=== PATIENT | female | born 1980 | race American Indian/Alaskan Native ===

== ENCOUNTER 2017-09-02 22:15 | Emergency (ER) | payer SELFPAY | END 2017-09-02 22:43 | disposition left against medical advice (07) | LOC: ED 22:15 | DX: R09.89 Other specified symptoms and signs involving the circulatory and respiratory systems (principal); Z53.21 Procedure and treatment not carried out due to patient leaving prior to being seen by health care provider ==

== ENCOUNTER 2018-12-02 12:35 | Inpatient (IN) | payer OTHER ==
[2018-12-02] MEDS ORDERED: NORMODYNE IV PRN (12:39)
--- NOTE | 2018-12-02 12:48 | Emergency Department Report ---
ED Neuro Deficit HPI - General Chief Complaint: Neuro Symptoms/Deficit Stated Complaint: CVA Time Seen by Provider: 12/02/18 12:39 Source: patient, EMS (verbal report received from EMS.ems notes not available at time of chart dictation), RN notes reviewed Mode of arrival: Stretcher Limitations: Physical Limitation - History of Present Illness Initial Comments: This is a 38-year-old female. The patient is not known to this provider previously. The patient is brought to the hospital by emergency medical services for questionable stroke. Patient reports last known well time approximately 11:13 AM this morning. Symptoms include speech difficulty, and left-sided weakness. The patient also describes headache. The patient has difficulty describing the qualitative nature of her headache, radiation, exacerbating or relieving factors. The patient reports that she is not . The patient has indicated no contraindications to TPA. Location: speech, left face, left arm, left leg Presenting Symptoms: Present: Weak/Paralyzed One Side, Facial Droop/Numbness, Unable to Speak Clearly History of same: No Place: home Severity: severe Quality: other Improves With: other Worsens With: other On Anticoagulants: No Context: sudden onset, other - Related Data Allergies/Adverse Reactions: Allergies Allergy/AdvReac Type Severity Reaction Status Date / Time amoxicillin Allergy Mild Unknown Verified 12/02/18 13:06 ED Review of Systems ROS: Stated complaint: CVA Other details as noted in HPI Comment: Unobtainable due to pts medical conditions Constitutional: fever Eyes: denies: eye discharge ENT: epistaxis (patient reported transient nasal bleeding, now resolved.) Cardiovascular: denies: chest pain Gastrointestinal: denies: abdominal pain, nausea, vomiting, hematemesis, hematochezia Genitourinary: denies: hematuria Musculoskeletal: denies: back pain Neurological: headache, weakness Psychiatric: anxiety ED Neuro Physical Exam - General Limitations: Physical Limitation General appearance: alert, anxious, in distress, obese Suspected Stroke: Yes - Head Head exam: Present: atraumatic, normocephalic - Eye Eye exam: Present: normal appearance, PERRL, EOMI - ENT ENT exam: Present: normal exam, normal orophraynx, mucous membranes moist, normal external ear exam - Neck Neck exam: Present: normal inspection, full ROM. Absent: tenderness, meningismus - Respiratory Respiratory exam: Present: normal lung sounds bilaterally. Absent: respiratory distress - Cardiovascular Cardiovascular Exam: Present: regular rate, normal rhythm, normal heart sounds. Absent: bradycardia, tachycardia, irregular rhythm, systolic murmur, diastolic murmur, rubs, gallop - GI/Abdominal GI/Abdominal exam: Present: soft. Absent: distended, tenderness, guarding, rebound, rigid, pulsatile mass - Extremities Exam Extremities exam: Present: normal inspection, full ROM, other (2+ pulses noted in the bilateral upper, lower extremities. Compartments soft. No long bony tenderness. The pelvis is stable.). Absent: tenderness, pedal edema, joint swelling, calf tenderness - Back Exam Back exam: Present: normal inspection, full ROM. Absent: tenderness, CVA tenderness (R), paraspinal tenderness, vertebral tenderness - Neurological Exam Neurological exam: Present: alert, motor sensory deficit (there is 4 out of 5 strength left arm, left leg. There is decreased sensation to light touch left arm, left leg.), other (there is a left-sided facial droop.). Absent: CN II-XII intact (extraocular movements are intact. The tongue is midline. There is a left-sided facial droop. ) - NIHSS Assessment Interval: Baseline 1a. Level of Consciousness: alert/keenly responsive 1b. LOC Questions: answers both correctly 1c. LOC Commands: performs tasks correctly 2. Best Gaze: normal 3. Visual: no visual loss 4. Facial Palsy: minor paralysis 5b. Motor Arm Right: no drift 5a. Motor Arm Left: drift 6a. Motor Leg Left: drift 6b. Motor Leg Right: no drift 7. Limb Ataxia: absent 8. Sensory: mild/moderate sensory loss 9. Best Language: no aphasia 10. Dysarthria: mild/moderate dysarthria 11. Extinction/Inattention: no abnormality Total Score: 5 Stroke Severity: Moderate Stroke - Psychiatric Psychiatric exam: Present: anxious - Skin Skin exam: Present: warm, dry, intact, normal color. Absent: rash ED Course Vital Signs 12/02/18 12/02/18 12/02/18 13:09 13:13 13:27 Pulse Rate Pulse Rate [ 87 77 Left Arm] Respiratory Rate Respiratory 18 18 Rate [Left Arm] Blood Pressure 176/91 176/100 [Left Arm] Blood Pressure 173/102 [Left] O2 Sat by Pulse Oximetry O2 Sat by Pulse 95 96 Oximetry [Left Arm] 12/02/18 12/02/18 12/02/18 13:32 13:35 13:42 Pulse Rate 77 Pulse Rate [ 79 81 Left Arm] Respiratory 18 Rate Respiratory 20 20 Rate [Left Arm] Blood Pressure 176/100 182/83 [Left Arm] Blood Pressure 166/84 [Left] O2 Sat by Pulse 95 Oximetry O2 Sat by Pulse 95 95 Oximetry [Left Arm] 12/02/18 12/02/18 12/02/18 13:57 14:12 14:57 Pulse Rate Pulse Rate [ 81 77 82 Left Arm] Respiratory Rate Respiratory 18 18 18 Rate [Left Arm] Blood Pressure 169/91 156/90 176/83 [Left Arm] Blood Pressure [Left] O2 Sat by Pulse Oximetry O2 Sat by Pulse 95 99 96 Oximetry [Left Arm] - Reevaluation(s) Reevaluation #1: 12/02/18 13:50 Differential diagnosis, including but not limited to: Ischemic stroke, hemorrhagic stroke, Primo's paralysis, hemiplegic migraine, conversion disorder Assessment and plan: 38-year-old female who presents within 4.5 hours symptom onset, left-sided facial droop, left arm, left leg weakness, and spaces disturbance. No contraindications to TPA. Patient does not have a history of hemiplegic or complex migraines that she is aware of. We have recommended TPA for presumed ischemic stroke. A noncontrast CT scan of the brain was negative for acute disease. Patient seen in conjunction with stroke neurology, who also has recommended and ordered TPA. Risks and benefits were discussed with the patient. She was specifically informed about the potential risk of fatal bleed, and anaphylactic/allergic reaction. The patient verbalized understanding and exhibits decision-making capacity. She was given labetalol for elevated blood pressure. Noncontrast CT scan of the brain is negative, angiogram of the head and neck has been ordered, we have requested stat interpretation and performance. We will monitor the patient's as per our standard TPA protocol. Reevaluation #2: 12/02/18 14:43 Case discussed with critical care physician, Dr. Gonzales, who agrees with placement into the intensive care unit, assuming no large vessel occlusion noted that would require transfer for endovascular intervention. Reevaluation #3: 12/02/18 15:10 CT angiogram of the neck did not demonstrate any significant large vessel occlusion. Angiogram of the head also unremarkable. Still weak on the left side, although chewing gum, talking on a telephone, and feels somewhat improved. Discussed findings with patient and family. Patient verbalizes understanding. The patient is amenable to hospitalization. The Hospital physician, Dr. Kurtz has accepted the patient to the medical service. - Lab Data Result diagrams: 12/02/18 12:47 12/02/18 12:50 Lab Results 12/02/18 12/02/18 12/02/18 Range/Units 12:47 12:50 12:50 WBC 6.4 (4.5-11.0) K/mm3 RBC 5.54 H (3.65-5.03) M/mm3 Hgb 16.3 H (10.1-14.3) gm/dl Hct 48.1 H (30.3-42.9) % MCV 87 (79-97) fl MCH 29 (28-32) pg MCHC 34 (30-34) % RDW 14.8 (13.2-15.2) % Plt Count 226 (140-440) K/mm3 Lymph % (Auto) 32.2 (13.4-35.0) % Woods % (Auto) 5.0 (0.0-7.3) % Eos % (Auto) 1.0 (0.0-4.3) % Baso % (Auto) 1.0 (0.0-1.8) % Lymph # 2.1 (1.2-5.4) K/mm3 Woods # 0.3 (0.0-0.8) K/mm3 Eos # 0.1 (0.0-0.4) K/mm3 Baso # 0.1 (0.0-0.1) K/mm3 Seg Neutrophils % 60.8 (40.0-70.0) % Seg Neutrophils # 3.9 (1.8-7.7) K/mm3 PT 12.1 L (12.2-14.9) Sec. INR 0.85 L (0.87-1.13) APTT 26.6 (24.2-36.6) Sec. Thrombin Time 15.6 (15.1-19.6) Sec. Sodium 138 (137-145) mmol/L Potassium 3.7 (3.6-5.0) mmol/L Chloride 102.3 (98-107) mmol/L Carbon Dioxide 22 (22-30) mmol/L Anion Gap 17 mmol/L BUN 7 (7-17) mg/dL Creatinine 0.7 (0.7-1.2) mg/dL Estimated GFR > 60 ml/min BUN/Creatinine Ratio 10 % Glucose 91 (65-100) mg/dL Calcium 9.3 (8.4-10.2) mg/dL Total Bilirubin 0.70 (0.1-1.2) mg/dL AST 18 (5-40) units/L ALT 27 (7-56) units/L Alkaline Phosphatase 91 (35-129) units/L Total Creatine Kinase 147 H (30-135) units/L Troponin T < 0.010 (0.00-0.029) ng/mL Total Protein 7.7 (6.3-8.2) g/dL Albumin 4.2 (3.9-5) g/dL Albumin/Globulin Ratio 1.2 % HCG, Quant (0-4) mIU/mL 12/02/18 Range/Units 12:50 WBC (4.5-11.0) K/mm3 RBC (3.65-5.03) M/mm3 Hgb (10.1-14.3) gm/dl Hct (30.3-42.9) % MCV (79-97) fl MCH (28-32) pg MCHC (30-34) % RDW (13.2-15.2) % Plt Count (140-440) K/mm3 Lymph % (Auto) (13.4-35.0) % Woods % (Auto) (0.0-7.3) % Eos % (Auto) (0.0-4.3) % Baso % (Auto) (0.0-1.8) % Lymph # (1.2-5.4) K/mm3 Woods # (0.0-0.8) K/mm3 Eos # (0.0-0.4) K/mm3 Baso # (0.0-0.1) K/mm3 Seg Neutrophils % (40.0-70.0) % Seg Neutrophils # (1.8-7.7) K/mm3 PT (12.2-14.9) Sec. INR (0.87-1.13) APTT (24.2-36.6) Sec. Thrombin Time (15.1-19.6) Sec. Sodium (137-145) mmol/L Potassium (3.6-5.0) mmol/L Chloride (98-107) mmol/L Carbon Dioxide (22-30) mmol/L Anion Gap mmol/L BUN (7-17) mg/dL Creatinine (0.7-1.2) mg/dL Estimated GFR ml/min BUN/Creatinine Ratio % Glucose (65-100) mg/dL Calcium (8.4-10.2) mg/dL Total Bilirubin (0.1-1.2) mg/dL AST (5-40) units/L ALT (7-56) units/L Alkaline Phosphatase (35-129) units/L Total Creatine Kinase (30-135) units/L Troponin T (0.00-0.029) ng/mL Total Protein (6.3-8.2) g/dL Albumin (3.9-5) g/dL Albumin/Globulin Ratio % HCG, Quant < 2 (0-4) mIU/mL Vital Signs 12/02/18 12/02/18 12/02/18 13:09 13:13 13:27 Pulse Rate Pulse Rate [ 87 77 Left Arm] Respiratory Rate Respiratory 18 18 Rate [Left Arm] Blood Pressure 176/91 176/100 [Left Arm] Blood Pressure 173/102 [Left] O2 Sat by Pulse Oximetry O2 Sat by Pulse 95 96 Oximetry [Left Arm] 12/02/18 12/02/18 12/02/18 13:32 13:35 13:42 Pulse Rate 77 Pulse Rate [ 79 81 Left Arm] Respiratory 18 Rate Respiratory 20 20 Rate [Left Arm] Blood Pressure 176/100 182/83 [Left Arm] Blood Pressure 166/84 [Left] O2 Sat by Pulse 95 Oximetry O2 Sat by Pulse 95 95 Oximetry [Left Arm] - EKG Data -: EKG Interpreted by Al EKG shows normal: sinus rhythm Rate: normal 12/02/18 13:52 EKG shows sinus rhythm, normal axis, normal intervals, left ventricular hypertrophy, there is artifact, this is an abnormal EKG, this is not consistent with ST elevation myocardial infarction. - Radiology Data Radiology results: pending, report reviewed, image reviewed Referring Physician: DMITRY JALLOH Patient Name: RAMEZ AGUILERA Date of : 1980 Sex: Female Report Date: 2018-12-02 Report Status: Finalized Findings [facility] [address] [place] [address] Cat Scan Report Signed Patient: RAMEZ AGUILERA MR#: [id number] : 1980 Acct:[id number] Age/Sex: 38 / F ADM Date: 12/02/18 Loc: ED Attending Dr: Ordering Physician: DMITRY JALLOH MD Date of Service: 12/02/18 Procedure(s): CT head/brain wo con Accession Number(s): [id number] cc: DMITRY JALLOH MD CT scan of head without IV contrast: Compared to 11/15/14. History: Stroke. Findings: Ventricles are normal in size and midline in location. No evidence of acute ischemia or hemorrhage. There is extra-axial mass identified at the right frontal region. No significant interval change compared to previous study of MRI dated 11/15/14. Normal brainstem and cerebellum. Impression: No acute intracranial abnormality. Dr. Mcintosh was informed of the findings at 12:58 PM on 12/02/18. 98N the Transcribed By: PTP Dictated By: RHETT STYLES MD Electronically Authenticated By: RHETT STYLES MD Signed Date/Time: 12/02/18 1240 DD/ 1229 TD/TT: 12/02/18 1240 - Thrombolytic Inclusion/Exclusion Thrombolytic Inclusion Criteria: Ischemic Stroke Onset< 3h, NIH Stroke Scale D eficit, Negative CT Scan for ICH, Age 18 or Older, Glucose of 50-400mg/dl Critical Care Time: Yes Critical care time in (mins) excluding proc time.: 60 Critical care attestation.: If time is entered above; I have spent that time in minutes in the direct care of this critically ill patient, excluding procedure time. ED Disposition Clinical Impression: Acute ischemic stroke Disposition: OP ADMIT IP TO THIS HOSP Is pt being admited?: Yes Condition: Critical Referrals: [facility] [Other] - 3-5 Days
--- NOTE | 2018-12-02 12:53 | Consultation ---
History of Present Illness Consult date: 12/02/18 History of present illness: [facility] Date of Service: 12/02/18 Impression: Left sided weakness and difficulty with speech: concern for R MCA terriroty infarct. Symptoms is consistent with LVO therefore a STAT CTA head and neck were ordered. Differential Diagnosis: 1. Cardioembolic stroke 2. Small vessel disease/lacune 3. Thromboembolic, [id number] mechanism 4. Hypercoagulable state-related infarct 5. Transient ischemic attack 6. Thrombotic mechanism, large artery disease Comments: LKN: 11:00 Door time: 12:35 [facility] contacted: 12:42 [facility] at bedside: 12:45 NIHSS assessment time: 12:50 BP prior to bolus: 173/102 Verbal tpa order: 13:05 Needle time: 13:12 Verbal Consent to tPA: I have explained to the patient the nature of the patients condition, the use of tPA fibrinolytic agent, and the benefits to be reasonably expected compared with alternative approaches. I have discussed the likelihood of major risks or complications of this procedure including (if applicable) but not limited to loss of limb function, brain damage, paralysis, hemorrhage, infection, complications from transfusion of blood components, drug reactions, blood clots and loss of life. I have also indicated that with any procedure there is always the possibility of an unexpected complication. I have explained the risks which include: 1. , Stroke or permanent neurologic injury (paralysis, coma, etc) 2. Worsening of stroke symptoms from swelling or bleeding in the brain 3. Bleeding in other parts of the body 4. Need for blood transfusions to replace blood or clotting factors 5. Allergic reaction to medications 6. Other unexpected complications All questions were answered and the patient/family/guardian express understanding of the treatment plan and consent to the procedure. Our recommendations are outlined below. We will be seeing the patient back in follow up as noted. Recommendations: IV tPA dose = 9mg bolus and 81mg infusion Routine post tPA monitoring including neuro checks and blood pressure control during/after treatment Monitor blood pressure Check blood pressure and NIHSS every 15 min for 2 h, then every 30 min for 6 h, and finally every hour for 16 h Systolic greater than 180 OR diastolic greater than 105: Option 1: Labetalol 10 mg IV for 1 - 2 min May repeat or double labetalol every 10 min to maximum dose of 300 mg, or give initial labetalol dose, then start labetalol drip at 2 - 8 mg/min. Option 2: Nicardipine 5 mg/h IV infusion as initial dose and titrate to desired effect by increasing 2.5 mg/h every 5 min to maximum of 15 mg/h; If blood pressure is not controlled by labetolol or nicardipine, consider sodium nitroprusside. Admission to ICU FU STAT CTA CT brain 24 hours post tPA NPO until swallowing screen performed and passed No antiplatelet agents or anticoagulants (including heparin for DVT prophylaxis) in first 24 hours No Easley catheter, nasogastric tube, arterial catheter or central venous catheter for 24 hr, unless absolutely necessary Telemetry Inpatient Neurology Consultation Stroke evaluation as per inpatient neurology recommendations Discussed with ED MD Vee Grover, DO [facility] left sided weakness and speech changes History of Present Illness 38 yo F who is presenting with sudden onset of headache with left sided weakness and speech changes at 11:00. Patient states that she woke up fine this morning and then she developed these symptoms and they are not improving. She has not had anything like this happen to her before. She does get headaches some times but not anything like this. Diagnostics CT head: no acute process Exam NIHSS score: 5 Medical Decision Making: - Extensive number of diagnosis or management options are considered above. - Extensive amount of complex data reviewed. - High risk of complication and/or morbidity or mortality are associated with differential diagnostic considerations above. - There may be Uncertain outcome and increased probability of prolonged functional impairment or high probability of severe prolonged functional impairment associated with some of these differential diagnosis. Medical Data Reviewed: 1.Data reviewed include clinical labs, radiology, Medical Tests; 2.Tests results discussed w/performing or interpreting physician; 3.Obtaining/reviewing old medical records; 4.Obtaining case history from another source; 5.Independent review of image, tracing or specimen. Patient was informed the Neurology Consult would happen via telehealth (remote video) and consented to receiving care in this manner. Medications and Allergies Allergies Allergy/AdvReac Type Severity Reaction Status Date / Time amoxicillin Allergy Mild Unknown Verified 12/02/18 13:06 Active Meds: Active Medications Labetalol HCl (Normodyne) 10 mg IV Q5MIN PRN PRN Reason: to maintain SBP < 180 - Assessment Assessment Interval: Baseline - Level of Consciousness 1a. Level of Consciousness: alert/keenly responsive - LOC Questions 1b. LOC Questions: answers both correctly - LOC Command 1c. LOC Commands: performs tasks correctly - Best Gaze 2. Best Gaze: normal - Visual 3. Visual: no visual loss - Facial Palsy 4. Facial Palsy: minor paralysis - Motor Arm 5a. Motor Arm Left: drift 5b. Motor Arm Right: no drift - Motor Leg 6a. Motor Leg Left: drift 6b. Motor Leg Right: no drift - Limb Ataxia 7. Limb Ataxia: absent - Sensory 8. Sensory: mild/moderate sensory loss - Best Language 9. Best Language: mild/moderate aphasia - Dysarthria 10. Dysarthria: normal - Extinction and Inattention 11. Extinction/Inattention: no abnormality - Scoring Total Score: 5 Stroke Severity: Moderate Stroke Results - Laboratory Findings CBC and BMP: 12/02/18 12:47
--- NOTE | 2018-12-02 13:01 | Cat Scan Report ---
CT scan of head without IV contrast: Compared to 11/15/14. History: Stroke. Findings: Ventricles are normal in size and midline in location. No evidence of acute ischemia or hemorrhage. There is extra-axial mass identified at the right frontal region. No significant interval change compared to previous study of MRI dated 11/15/14. Normal brainstem and cerebellum. Impression: No acute intracranial abnormality. Dr. Mcintosh was informed of the findings at 12:58 PM on 12/02/18. 98N the
[2018-12-02 13:06] LABS: Basophils # (Auto) 0.1 K/mm3 (0.0-0.1); Eosinophils # (Auto) 0.1 K/mm3 (0.0-0.4); Hematocrit 48.1 % (30.3-42.9); Hemoglobin 16.3 gm/dl (10.1-14.3); Lymphocytes # (Auto) 2.1 K/mm3 (1.2-5.4); Lymphocytes % (Auto) 32.2 % (13.4-35.0); Mean Corpuscular HGB Conc 34 % (30-34); Mean Corpuscular Volume 87 fl (79-97); Monocytes # (Auto) 0.3 K/mm3 (0.0-0.8); Platelet Count 226 K/mm3 (140-440); Red Blood Count 5.54 M/mm3 (3.65-5.03); Red Cell Distribution Width 14.8 % (13.2-15.2)
[2018-12-02] MEDS ORDERED: ACTIVASE IV ONE ×2 (13:06)
[2018-12-02] MEDS ORDERED: ACTIVASE ONE (13:06)
[2018-12-02 13:16] LABS: INR 0.85 (0.87-1.13)
[2018-12-02 13:17] LABS: Partial Thromboplastin Time 26.6 Sec. (24.2-36.6); Thrombin Time 15.6 Sec. (15.1-19.6)
[2018-12-02 13:30] LABS: Alanine Aminotransferase 27 units/L (7-56); Albumin 4.2 g/dL (3.9-5); BUN/Creatinine Ratio 10; Blood Urea Nitrogen 7 mg/dL (7-17); Calcium 9.3 mg/dL (8.4-10.2); Hemolysis Index 29
[2018-12-02] MEDS ORDERED: NACL 0.9% IV ONE (14:00)
--- NOTE | 2018-12-02 14:52 | Cat Scan Report ---
PROCEDURE: CT ANGIO HEAD TECHNIQUE: CT angiography of the head performed. 100 cc Omnipaque 350 IV contrast administered. Axia l images and coronal and sagittal reformatted images were obtained. MIP fan reformatted images also o btained. HISTORY: stroke sx COMPARISON: None FINDINGS: The anterior and posterior cerebral circulations are maintained. No intravascular filling defects see n. There is no cerebral aneurysm seen. There is a retention cyst in the right maxillary sinus. IMPRESSION: There is no significant abnormality identified. This document is electronically signed by Betina Esparza MD., Dec 02 2018 02:50:46 PM ET
--- NOTE | 2018-12-02 14:56 | Cat Scan Report ---
PROCEDURE: CT ANGIO NECK TECHNIQUE: CT angiography of the neck performed. IV contrast administered. Axial images and coronal and sagittal reformatted images. MIP and reformatted images obtained. HISTORY: stroke sx COMPARISON: None FINDINGS: Carotid arteries are patent without evidence for carotid stenosis or dissection. Vertebral arteries are patent without evidence for stenosis or dissection. IMPRESSION: There is no significant abnormality identified. This document is electronically signed by Betina Esparza MD., Dec 02 2018 02:54:07 PM ET
[2018-12-02] MEDS ORDERED: REGLAN ONE (15:25)
[2018-12-02] MEDS ORDERED: REGLAN IV ONE (15:29)
--- NOTE | 2018-12-02 18:20 | History and Physical Report ---
History of Present Illness Chief complaint: Im weak History of present illness: 38 YO Female with Obesity presents to ED for evaluation. Pt was in her usual state of health until she experienced acute onset of slurred speech , facial drooping, and Left sided weakness which began at 11:13 hrs. EMS was notified, and upon arrival the patient was found to have a neurologic deficit. A code stroke was called and the patient was transported to [facility]. Pt seen and evaluated in ED and found to have symptoms of CVA and was treated with TPA with improvement in symptoms. Pt admitted to ICU. Teleneurology consulted in ED and patient was deemed to be a candidate for TPA. Neurology consulted in ED and patient was initiated on CVA protocol. No reports of fever, chills, CP, Palpitations, NVD, Syncope, or recent ill contacts. Past History Past Medical History: other (Obesity) Past Surgical History: No surgical history, Other (reviewed) Social history: single. denies: smoking, alcohol abuse, prescription drug abuse Family history: hypertension Medications and Allergies Allergies Allergy/AdvReac Type Severity Reaction Status Date / Time amoxicillin Allergy Mild Unknown Verified 12/02/18 13:06 Home Medications Medication Instructions Recorded Confirmed Last Taken Type Albuterol Sulfate [Albuterol 0.63% 0.63 mg IH DAILY 12/02/18 12/02/18 Unknown History NEBS] Ibuprofen [Motrin] 600 mg PO DAILY PRN 12/02/18 12/02/18 12/01/18 History Active Meds: Active Medications Labetalol HCl (Normodyne) 10 mg IV Q5MIN PRN PRN Reason: to maintain SBP < 180 Review of Systems Constitutional: no weight loss, no weight gain, no fever, no chills Ears, nose, mouth and throat: no ear pain, no ear discharge, no tinnitis, no dec reased hearing, no nasal congestion Breasts: no change in shape, no swelling Cardiovascular: no chest pain, no orthopnea, no palpitations, no rapid/irregular heart beat Respiratory: no cough, no cough with sputum, no shortness of breath Gastrointestinal: no abdominal pain, no nausea, no vomiting, no diarrhea, no change in bowel habits, no hematemesis Genitourinary Female: no pelvic pain, no flank pain, no menorrhagia, no dysuria, no urinary frequency, no urgency Rectal: no pain, no incontinence, no bleeding Musculoskeletal: no neck stiffness, no neck pain, no shooting arm pain, no arm numbness/tingling, no shooting leg pain, no leg numbness/tingling Integumentary: no rash, no pruritis, no redness, no sores, no wounds, no jaundice Neurological: weakness, numbness, change in speech, gait dysfunction, motor disturbance, no head injury, no seizures, no syncope, no tremors Psychiatric: no anxiety, no memory loss, no change in sleep habits, no sleep disturbances, no insomnia, no hypersomnia, no change in appetite Endocrine: no cold intolerance, no heat intolerance, no polyphagia, no excessive thirst, no polydipsia, no polyuria Hematologic/Lymphatic: no easy bruising, no easy bleeding, no lymphadenopathy, no lymphedema Allergic/Immunologic: no urticaria, no allergic rhinitis, no wheezing, no persistent infections, no anaphylaxis Exam - Constitutional Vitals: Temp Pulse Resp BP Pulse Ox 75 18 145/80 98 12/02/18 16:57 12/02/18 17:00 12/02/18 16:57 12/02/18 17:00 General appearance: Present: mild distress - EENT Eyes: Present: PERRL ENT: hearing intact, clear oral mucosa - Neck Neck: Present: supple, normal ROM - Respiratory Respiratory effort: normal Respiratory: bilateral: CTA - Cardiovascular Heart Sounds: Present: S1 & S2. Absent: rub, click - Extremities Extremities: pulses symmetrical, No edema Peripheral Pulses: within normal limits - Abdominal General gastrointestinal: Present: soft, non-tender, non-distended, normal bowel sounds Female genitourinary: Present: normal - Integumentary Integumentary: Present: clear, warm, dry - Musculoskeletal Musculoskeletal: left sided weakness - Psychiatric Psychiatric: appropriate mood/affect, intact judgment & insight - Neurologic Neurologic: CNII-XII intact, focal deficits, no moves all extremities, no gait normal Results - Labs CBC & Chem 7: 12/02/18 12:47 12/02/18 12:50 Labs: Abnormal lab results 12/02/18 12/02/18 12/02/18 Range/Units 12:47 12:50 12:50 RBC 5.54 H (3.65-5.03) M/mm3 Hgb 16.3 H (10.1-14.3) gm/dl Hct 48.1 H (30.3-42.9) % PT 12.1 L (12.2-14.9) Sec. INR 0.85 L (0.87-1.13) Total Creatine Kinase 147 H (30-135) units/L Assessment and Plan - Patient Problems (1) CVA (cerebral vascular accident) Current Visit: Yes Status: Acute Qualifiers: Precerebral and cerebral artery: middle cerebral artery Laterality of affected vessel: left Plan to address problem: Admit to ICU, TPA Administered in ED, Stroke Protocol: CT head, MRI Brain, MRA Brain, Echo, Carotid doppler, Antiplatelet therapy, lipid panel, statin therapy, PT/OT/speech therapy, Swallow evaluation in ED, Teleneurology consulted in ED, Neurology consulted in ED. (2) Obesity hypoventilation syndrome Current Visit: Yes Status: Acute Plan to address problem: Balanced diet, increased physical activity at discharge, NIPPV as clinically indicated. supplemental oxygen, nebulizer therpay, pulse oximetry (3) DVT prophylaxis Current Visit: Yes Status: Acute Plan to address problem: SCD to BLE while in bed, hold anticoagulation for 24 hours S/P TPA.
[2018-12-02] MEDS ORDERED: MILK OF MAGNESIA PO PRN (18:21)
[2018-12-02] MEDS ORDERED: DULCOLAX PR PRN (18:21)
[2018-12-02] MEDS ORDERED: SODIUM CHLORIDE FLUSH SYRINGE 10 ML IV PRN (18:21)
[2018-12-02] MEDS ORDERED: ZOFRAN IV PRN (18:21)
[2018-12-02] MEDS ORDERED: REGLAN PO PRN (18:21)
[2018-12-02] MEDS ORDERED: PHENERGAN PR PRN (18:21)
[2018-12-02] MEDS ORDERED: PROVENTIL IH PRN (18:21)
[2018-12-02] MEDS ORDERED: SODIUM CHLORIDE FLUSH SYRINGE 10 ML INJ PRN (18:34)
[2018-12-02] MEDS ORDERED: NORMODYNE IV ONE (20:22)
[2018-12-02] MEDS ORDERED: TYLENOL ONE (21:25)
[2018-12-02] MEDS ORDERED: TYLENOL PR ONE ×2 (21:28)
--- NOTE | 2018-12-03 03:27 | Cat Scan Report ---
PROCEDURE: CT HEAD/BRAIN WO CON TECHNIQUE: Computerized tomography of the head was performed without contrast material. CT DOSE LENGTH PRODUCT: 969.2 mGycm HISTORY: headache after TPA COMPARISONS: December 02, 2018 . FINDINGS: Skull and scalp: Normal . Paranasal sinuses: Normal . Ventricles and subarachnoid spaces: Normal . Cerebrum: No evidence of hemorrhage, acute infarction or mass . Cerebellum and brainstem: No evidence of hemorrhage, acute infarction or mass . Vasculature: Normal . IMPRESSION: Normal Examination . This document is electronically signed by Rian Syed MD., Dec 03 2018 03:24:56 AM ET
[2018-12-03 05:45] LABS: Chol/HDL Ratio 4.47 %
--- NOTE | 2018-12-03 08:31 | Progress Note ---
Assessment and Plan Assessment and plan: Patient is 38 yo woman without a history of chronic medical problems who presented to [facility] ED on 12/02/18 with acute onset of slurred speech, facial drooping, and Left sided weakness which began at 11:13 hrs. NIHSS was 5. She was treated with tPA. CVA (cerebral vascular accident) Current Visit: Yes Status: Acute Qualifiers: Precerebral and cerebral artery: middle cerebral artery Laterality of affected vessel: left Plan to address problem: Admit to ICU, TPA Administered in ED, Stroke Protocol: CT head, MRI Brain, MRA Brain, Echo, Carotid doppler, Antiplatelet therapy, lipid panel, statin therapy, PT/OT/speech therapy, Swallow evaluation in ED, Teleneurology consulted in ED, Neurology consulted in ED. Obesity bmi 35.5 Current Visit: Yes Status: Acute Plan to address problem: Balanced diet, increased physical activity at discharge, NIPPV as clinically indicated. supplemental oxygen, nebulizer therpay, pulse oximetry -Dyslipidemia: treat with statin -DVT prophylaxis Current Visit: Yes Status: Acute Plan to address problem: SCD to BLE while in bed, hold anticoagulation for 24 hours S/P TPA. MRI brain pending History Interval history: Follow up CVA. She has expressive aphasia, but talking, she has left hemiparesis but able to move slightly. No headaches, no n/v/sob/cp Hospitalist Physical - Physical exam Narrative exam: - General Limitations: Physical Limitation General appearance: alert, anxious, in distress, obese Suspected Stroke: Yes - Head Head exam: Present: atraumatic, normocephalic - Eye Eye exam: Present: normal appearance, PERRL, EOMI - ENT ENT exam: Present: normal exam, normal orophraynx, mucous membranes moist, normal external ear exam - Neck Neck exam: Present: normal inspection, full ROM. Absent: tenderness, meningismus - Respiratory Respiratory exam: Present: normal lung sounds bilaterally. Absent: respiratory distress - Cardiovascular Cardiovascular Exam: Present: regular rate, normal rhythm, normal heart sounds. Absent: bradycardia, tachycardia, irregular rhythm, systolic murmur, diastolic murmur, rubs, gallop - GI/Abdominal GI/Abdominal exam: Present: soft. Absent: distended, tenderness, guarding, rebound, rigid, pulsatile mass - Extremities Exam Extremities exam: Present: normal inspection, full ROM, other (2+ pulses noted in the bilateral upper, lower extremities. Compartments soft. No long bony tenderness. The pelvis is stable.). Absent: tenderness, pedal edema, joint swelling, calf tenderness - Back Exam Back exam: Present: normal inspection, full ROM. Absent: tenderness, CVA tenderness (R), paraspinal tenderness, vertebral tenderness - Neurological Exam Neurological exam: Present: alert, motor sensory deficit (there is 4 out of 5 strength left arm, left leg. There is decreased sensation to light touch left arm, left leg.), other (there is a left-sided facial droop.). Absent: CN II-XII intact (extraocular movements are intact. The tongue is midline. There is a left-sided facial droop. ) - Constitutional Vitals: Temp Pulse Resp BP Pulse Ox 72 21 160/99 98 12/03/18 07:00 12/03/18 07:00 12/03/18 07:00 12/03/18 07:00 General appearance: Present: mild distress Results - Labs CBC & Chem 7: 12/02/18 12:47 12/02/18 12:50 Labs: Laboratory Last Values WBC 6.4 K/mm3 (4.5-11.0) 12/02/18 12:47 RBC 5.54 M/mm3 (3.65-5.03) H 12/02/18 12:47 Hgb 16.3 gm/dl (10.1-14.3) H 12/02/18 12:47 Hct 48.1 % (30.3-42.9) H 12/02/18 12:47 MCV 87 fl (79-97) 12/02/18 12:47 MCH 29 pg (28-32) 12/02/18 12:47 MCHC 34 % (30-34) 12/02/18 12:47 RDW 14.8 % (13.2-15.2) 12/02/18 12:47 Plt Count 226 K/mm3 (140-440) 12/02/18 12:47 Lymph % (Auto) 32.2 % (13.4-35.0) 12/02/18 12:47 [place] % (Auto) 5.0 % (0.0-7.3) 12/02/18 12:47 Eos % (Auto) 1.0 % (0.0-4.3) 12/02/18 12:47 Baso % (Auto) 1.0 % (0.0-1.8) 12/02/18 12:47 Lymph # 2.1 K/mm3 (1.2-5.4) 12/02/18 12:47 [place] # 0.3 K/mm3 (0.0-0.8) 12/02/18 12:47 Eos # 0.1 K/mm3 (0.0-0.4) 12/02/18 12:47 Baso # 0.1 K/mm3 (0.0-0.1) 12/02/18 12:47 Seg Neutrophils % 60.8 % (40.0-70.0) 12/02/18 12:47 Seg Neutrophils # 3.9 K/mm3 (1.8-7.7) 12/02/18 12:47 PT 12.1 Sec. (12.2-14.9) L 12/02/18 12:50 INR 0.85 (0.87-1.13) L 12/02/18 12:50 APTT 26.6 Sec. (24.2-36.6) 12/02/18 12:50 Thrombin Time 15.6 Sec. (15.1-19.6) 12/02/18 12:50 Sodium 138 mmol/L (137-145) 12/02/18 12:50 Potassium 3.7 mmol/L (3.6-5.0) 12/02/18 12:50 Chloride 102.3 mmol/L (98-107) 12/02/18 12:50 Carbon Dioxide 22 mmol/L (22-30) 12/02/18 12:50 Anion Gap 17 mmol/L 12/02/18 12:50 BUN 7 mg/dL (7-17) 12/02/18 12:50 Creatinine 0.7 mg/dL (0.7-1.2) 12/02/18 12:50 Estimated GFR > 60 ml/min 12/02/18 12:50 BUN/Creatinine Ratio 10 % 12/02/18 12:50 Glucose 91 mg/dL (65-100) 12/02/18 12:50 POC Glucose 82 (70-105) 12/02/18 13:45 Calcium 9.3 mg/dL (8.4-10.2) 12/02/18 12:50 Total Bilirubin 0.70 mg/dL (0.1-1.2) 12/02/18 12:50 AST 18 units/L (5-40) 12/02/18 12:50 ALT 27 units/L (7-56) 12/02/18 12:50 Alkaline Phosphatase 91 units/L (35-129) 12/02/18 12:50 Total Creatine Kinase 147 units/L (30-135) H 12/02/18 12:50 Troponin T < 0.010 ng/mL (0.00-0.029) 12/02/18 12:50 Total Protein 7.7 g/dL (6.3-8.2) 12/02/18 12:50 Albumin 4.2 g/dL (3.9-5) 12/02/18 12:50 Albumin/Globulin Ratio 1.2 % 12/02/18 12:50 Triglycerides 96 mg/dL (2-149) 12/03/18 05:07 Cholesterol 161 mg/dL (50-199) 12/03/18 05:07 LDL Cholesterol Direct 114 mg/dL (50-130) 12/03/18 05:07 HDL Cholesterol 36 mg/dL (40-59) L 12/03/18 05:07 Cholesterol/HDL Ratio 4.47 % 12/03/18 05:07 HCG, Quant < 2 mIU/mL (0-4) 12/02/18 12:50 Active Medications - Current Medications Current Medications: Generic Name Dose Route Start Last Admin Trade Name Freq PRN Reason Stop Dose Admin Acetaminophen 650 mg 12/02/18 18:21 Tylenol PO Q4H PRN Pain, Mild (1-3) Albuterol 2.5 mg 12/02/18 18:21 Proventil IH Q3HRT PRN Shortness Of Breath Aspirin 325 mg 12/03/18 10:00 Aspirin PO QDAY [facility] Atorvastatin Calcium 40 mg 12/02/18 22:00 12/02/18 22:00 Lipitor PO Not Given QHS LINUS Bisacodyl 10 mg 12/02/18 18:21 Dulcolax CA QDAY PRN Constipation Labetalol HCl 10 mg 12/02/18 12:39 Normodyne IV Q5MIN PRN to maintain SBP < 180 Magnesium Hydroxide 30 ml 12/02/18 18:21 Milk Of Magnesia PO Q4H PRN Constipation Metoclopramide HCl 10 mg 12/02/18 18:21 Reglan PO Q6H PRN Nausea And Vomiting Ondansetron HCl 4 mg 12/02/18 18:21 Zofran IV Q8H PRN Nausea And Vomiting Promethazine HCl 25 mg 12/02/18 18:21 Phenergan CA Q6H PRN Nausea And Vomiting Sodium Chloride 10 ml 12/02/18 18:21 Sodium Chloride Flush Syringe 10 Ml IV PRN PRN LINE FLUSH
[2018-12-03] MEDS ORDERED: TYLENOL ONE (10:07)
[2018-12-03] MEDS: TYLENOL PO PRN ×2 (10:31→21:05)
[2018-12-03] MEDS ORDERED: ASPIRIN ONE (10:38)
[2018-12-03] MEDS: ASPIRIN PO SCH (10:59)
--- NOTE | 2018-12-03 11:07 | Vascular Lab Report ---
PROCEDURE: VL CAROTID DUPLEX BILAT TECHNIQUE: Carotid ultrasound. Degree of carotid stenosis calculated by indirect methods via the peak systolic velocities of the ICA and CCA and reference with the society of Radiologist and Ultrasound consensus conference radiology 2003. HISTORY: stroke COMPARISONS: None currently available. FINDINGS: Note: Measurement of carotid stenosis is based on flow velocity values that correlate with the [place] Symptomatic Carotid Endarterectomy Trial (NASCET) based stenosis criteria using the internal carotid artery diameter as the denominator for stenosis calculation. RIGHT CCA, ICA, and ECA (cm/s): 106, 109, and 107. Ratio = 1.02. LEFT CCA, ICA, and ECA (cm/s): 143, 109, 138. Ratio = 0.76. Both vertebral arteries demonstrate antegrade flow. Normal spectral rhythm is identified. IMPRESSION: * No hemodynamically significant (>50%) stenosis noted based on the ratios, velocities, and color Do ppler images. This document is electronically signed by Henrry Peng MD., Dec 03 2018 11:05:26 AM ET
--- NOTE | 2018-12-03 14:39 | Consultation ---
History of Present Illness Consult date: 12/03/18 Requesting physician: DMITRY JALLOH Reason for consult: other (Acute CVA) History of present illness: PULMONARY/CCM CONSULT NOTE (Full dictation # [id number]) Please see dictated notes for full details Past History Past Medical History: other (Obesity) Past Surgical History: No surgical history, Other (reviewed) Social history: single. denies: smoking, alcohol abuse, prescription drug abuse Family history: hypertension Medications and Allergies Allergies Allergy/AdvReac Type Severity Reaction Status Date / Time amoxicillin Allergy Mild Unknown Verified 12/02/18 13:06 Home Medications Medication Instructions Recorded Confirmed Last Taken Type Albuterol Sulfate [Albuterol 0.63% 0.63 mg IH DAILY 12/02/18 12/02/18 Unknown History NEBS] Ibuprofen [Motrin] 600 mg PO DAILY PRN 12/02/18 12/02/18 12/01/18 History Ibuprofen 400 mg PO TID PRN #20 tablet 12/08/18 Unknown Rx Active Meds: Active Medications Acetaminophen (Tylenol) 650 mg PO Q4H PRN PRN Reason: Pain, Mild (1-3) Last Admin: 12/03/18 10:31 Dose: 650 mg Documented by: Albuterol (Proventil) 2.5 mg IH Q3HRT PRN PRN Reason: Shortness Of Breath Aspirin (Aspirin) 325 mg PO QDAY [facility] Last Admin: 12/03/18 10:59 Dose: 325 mg Documented by: Atorvastatin Calcium (Lipitor) 40 mg PO QHS [facility] Last Admin: 12/02/18 22:00 Dose: Not Given Documented by: Bisacodyl (Dulcolax) 10 mg MS QDAY PRN PRN Reason: Constipation Labetalol HCl (Normodyne) 10 mg IV Q5MIN PRN PRN Reason: to maintain SBP < 180 Magnesium Hydroxide (Milk Of Magnesia) 30 ml PO Q4H PRN PRN Reason: Constipation Metoclopramide HCl (Reglan) 10 mg PO Q6H PRN PRN Reason: Nausea And Vomiting Ondansetron HCl (Zofran) 4 mg IV Q8H PRN PRN Reason: Nausea And Vomiting Promethazine HCl (Phenergan) 25 mg MS Q6H PRN PRN Reason: Nausea And Vomiting Sodium Chloride (Sodium Chloride Flush Syringe 10 Ml) 10 ml IV PRN PRN PRN Reason: LINE FLUSH Physical Examination Vital signs: Vital Signs BP 173/102 12/02/18 13:09 Results - Laboratory Findings CBC and BMP: 12/02/18 12:47 12/02/18 12:50 PT/INR, D-dimer PT 12.1 Sec. (12.2-14.9) L 12/02/18 12:50 INR 0.85 (0.87-1.13) L 12/02/18 12:50 Abnormal lab findings: Abnormal Labs 12/02/18 12/02/18 12/02/18 12:47 12:50 12:50 RBC 5.54 H Hgb 16.3 H Hct 48.1 H PT 12.1 L INR 0.85 L Total Creatine Kinase 147 H HDL Cholesterol 12/03/18 05:07 RBC Hgb Hct PT INR Total Creatine Kinase HDL Cholesterol 36 L
--- NOTE | 2018-12-03 18:15 | Progress Note ---
Assessment and Plan This is a 38 YO F with left sided weakness, s/p Alteplase. Examination is suspicious for non physiologic deficits. Recommend: Aspirin daily, pt with negative ct head x 2 MRI normal. MRA normal Statin, Pt/OT/ST, VTE prophylaxis echo and cta neck with out pathology Continue care for all medical issues as you are doing IF pt does not improve will likely need rehab. Subjective Date of service: 12/03/18 Interval history: Pt with no additional complaints. Initially seen by the teleneurologist service. Speech is back to normal but stil having trouble with the left side. Objective - Vital Sign Vital Signs - 12hr 12/03/18 12/03/18 12/03/18 07:00 08:00 09:00 Pulse Rate [ 72 79 77 Left Arm] Respiratory 21 18 18 Rate [Left Arm] Blood Pressure 160/99 156/95 163/90 [Left Arm] O2 Sat by Pulse 98 94 96 Oximetry [Left Arm] 12/03/18 12/03/18 12/03/18 10:00 11:00 12:08 Pulse Rate [ 77 82 78 Left Arm] Respiratory 18 18 18 Rate [Left Arm] Blood Pressure 163/90 154/93 149/84 [Left Arm] O2 Sat by Pulse 96 96 96 Oximetry [Left Arm] 12/03/18 12/03/18 12/03/18 13:00 14:00 15:00 Pulse Rate [ 86 72 72 Left Arm] Respiratory 18 18 18 Rate [Left Arm] Blood Pressure 184/82 167/104 167/104 [Left Arm] O2 Sat by Pulse 96 96 97 Oximetry [Left Arm] - EENT EENT: PERRL, mucous membranes moist - Respiratory Respiratory: lungs clear - Cardiovascular Cardiovascular: regular rate - Gastrointestinal Gastrointestinal: normoactive bowel sounds - Neurologic Cranial nerve examination: PERRL, V1/V2/V3 grossly intact, face symmetric, tongue midline Speech examination: intact Detailed motor examination: grossly full strength in Motor examination - right side: 5/5: biceps, triceps, wrist flexion, wrist extension, field handyman, hip flexors, knee extensors, dorsiflexion, toe extension (EHL), plantarflexion Motor examination - left side: 3/5: biceps, triceps, wrist flexion, wrist extension, field handyman, hip flexors, knee extensors, dorsiflexion, toe extension (EHL), plantarflexion Reflex and gait examination: normal gait Reflexes: 1+: ankle, bicep, knee, tricep - Laboratory Findings CBC and BMP: 12/02/18 12:47 12/02/18 12:50 Abnormal Lab Findings: Abnormal Labs 12/02/18 12/02/18 12/02/18 12:47 12:50 12:50 RBC 5.54 H Hgb 16.3 H Hct 48.1 H PT 12.1 L INR 0.85 L Total Creatine Kinase 147 H HDL Cholesterol 12/03/18 05:07 RBC Hgb Hct PT INR Total Creatine Kinase HDL Cholesterol 36 L - Diagnostic Findings Additional findings: CT head (-) MRI Brain no abnormality MRA head no abnormality
--- NOTE | 2018-12-03 18:16 | Magnetic Resonance Report ---
PROCEDURE: MR BRAIN WO CON TECHNIQUE: Magnetic resonance imaging of the brain was performed without contrast material. HISTORY: stroke . Headache. COMPARISONS: None . FINDINGS: There is no evidence of intracranial hemorrhage. No mass lesions or mass effect identified. Normal gr ay-white matter differentiation is seen. The ventricles are normal size and are midline. No abnormal extra-axial fluid collections or masses are seen. The corpus callosum, region of the pituitary fossa and foramen magnum appear normal. No abnormal areas of restricted diffusion are seen that would sugge st an acute ischemic event. Mastoid air cells are clear. There is an oval density seen inferiorly in the right maxillary sinus measuring 3.2 x 1.7 cm suggesti ng a mucous retention cyst. The paranasal sinuses otherwise are clear. IMPRESSION: Negative MRI of the brain. Mild paranasal sinus disease as described. . This document is electronically signed by Alexis Carter MD., Dec 03 2018 06:15:00 PM ET
--- NOTE | 2018-12-03 18:19 | Magnetic Resonance Report ---
PROCEDURE: MR MRA/MRV HEAD WO CON TECHNIQUE: Axial 3-D [id number] MR angiography of the [place] of [place] and brain was performed. The source images were reconstructed in various views using maximum intensity projection. HISTORY: stroke COMPARISONS: None . FINDINGS: Visualized vertebral arteries appear widely patent. Basilar artery is also widely patent. There is pe rsistent circulation of the left posterior cerebral artery. The posterior cerebral arteries donn aterally appear widely patent. Visualized internal carotid arteries appear widely patent. The carotid siphons, the A1 segments, the anterior cerebral arteries and the middle cerebral arteries bilaterally appear widely patent. No high -grade stenosis, occlusion visualized. No changes are seen that would suggest aneurysm or vascular ma lformation. IMPRESSION: Negative exam. Anterior and posterior circulation appear intact. No focal abnormalities are seen. This document is electronically signed by Alexis Carter MD., Dec 03 2018 06:18:02 PM ET
[2018-12-04] MEDS: BENADRYL PO PRN ×2 (05:31→22:06)
--- NOTE | 2018-12-04 07:36 | Progress Note ---
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 No nausea or vomiting. Residual weakness of the left upper extremity Objective - Exam Narrative Exam: - General Limitations: Physical Limitation General appearance: alert, anxious, in distress, obese Suspected Stroke: Yes - Head Head exam: Present: atraumatic, normocephalic - Eye Eye exam: Present: normal appearance, PERRL, EOMI - ENT ENT exam: Present: normal exam, normal orophraynx, mucous membranes moist, normal external ear exam - Neck Neck exam: Present: normal inspection, full ROM. Absent: tenderness, meningismus - Respiratory Respiratory exam: Present: normal lung sounds bilaterally. Absent: respiratory distress - Cardiovascular Cardiovascular Exam: Present: regular rate, normal rhythm, normal heart sounds. Absent: bradycardia, tachycardia, irregular rhythm, systolic murmur, diastolic murmur, rubs, gallop - GI/Abdominal GI/Abdominal exam: Present: soft. Absent: distended, tenderness, guarding, rebound, rigid, pulsatile mass - Extremities Exam Extremities exam: Present: normal inspection, full ROM, other (2+ pulses noted in the bilateral upper, lower extremities. Compartments soft. No long bony tenderness. The pelvis is stable.). Absent: tenderness, pedal edema, joint swelling, calf tenderness - Back Exam Back exam: Present: normal inspection, full ROM. Absent: tenderness, CVA tenderness (R), paraspinal tenderness, vertebral tenderness - Neurological Exam Neurological exam: Present: alert, motor sensory deficit (there is 4 out of 5 strength left arm, left leg. There is decreased sensation to light touch left arm, left leg.), other (there is a left-sided facial droop.). Absent: CN II-XII intact (extraocular movements are intact. The tongue is midline. There is a left-sided facial droop, which is improving. ) Vital Signs - 12hr 12/03/18 12/03/18 12/03/18 20:44 21:05 21:42 Temperature Pulse Rate Pulse Rate [ 77 Apical] Respiratory 18 18 Rate Respiratory 18 Rate [Head] Blood Pressure O2 Sat by Pulse 95 Oximetry 12/03/18 12/03/18 12/04/18 22:05 23:27 04:46 Temperature 98.0 F 98.0 F Pulse Rate 81 71 Pulse Rate [ Apical] Respiratory 18 18 18 Rate Respiratory Rate [Head] Blood Pressure 144/84 142/81 O2 Sat by Pulse 95 94 Oximetry Gastrointestinal: normoactive bowel sounds CBC and BMP: 12/02/18 12:47 12/02/18 12:50 ABG, PT/INR, D-dimer: PT/INR, D-dimer PT 12.1 Sec. (12.2-14.9) L 12/02/18 12:50 INR 0.85 (0.87-1.13) L 12/02/18 12:50 Abnormal lab findings: Abnormal Labs 12/02/18 12/02/18 12/02/18 12:47 12:50 12:50 RBC 5.54 H Hgb 16.3 H Hct 48.1 H PT 12.1 L INR 0.85 L Total Creatine Kinase 147 H HDL Cholesterol 12/03/18 05:07 RBC Hgb Hct PT INR Total Creatine Kinase HDL Cholesterol 36 L
[2018-12-04] MEDS: ASPIRIN PO SCH (10:09)
--- NOTE | 2018-12-04 11:30 | Progress Note ---
Assessment and Plan Assessment and plan: Acute CVA. Patient received TPA in the emergency department. MRI/MRA negative. Echocardiogram reveals left ventricular chamber size normal with EF 50-55% and mild concentric left ventricular hypertrophy. PFO was not demonstrated. Carotid Dopplers negative. PT/OT. Await recommendations. Obesity. Balanced diet, increased physical activity at discharge OHS/SORAYA. NIPPV as clinically indicated. supplemental oxygen, nebulizer therpay, pulse oximetry. Dyslipidemia. Continue statins. DVT prophylaxis. SCD to BLE while in bed, hold anticoagulation for 24 hours S/P TPA. History Interval history: No new issues overnight. Hospitalist Physical - Constitutional Vitals: Temp Pulse Resp BP Pulse Ox 98.0 F 78 20 141/89 96 12/04/18 08:17 12/04/18 10:00 12/04/18 10:00 12/04/18 08:17 12/04/18 10:00 General appearance: Present: no acute distress - EENT Eyes: Present: PERRL, EOM intact ENT: hearing intact, clear oral mucosa, dentition normal - Neck Neck: Present: supple, normal ROM - Respiratory Respiratory effort: normal Respiratory: bilateral: CTA - Cardiovascular Rhythm: regular Heart Sounds: Present: S1 & S2. Absent: gallop, rub - Extremities Extremities: no ischemia, No edema, Full ROM - Abdominal General gastrointestinal: soft, non-tender, non-distended, normal bowel sounds - Integumentary Integumentary: Present: clear, warm, dry - Neurologic Neurologic: CNII-XII intact, moves all extremities Results - Labs CBC & Chem 7: 12/02/18 12:47 12/02/18 12:50 Labs: Laboratory Last Values WBC 6.4 K/mm3 (4.5-11.0) 12/02/18 12:47 RBC 5.54 M/mm3 (3.65-5.03) H 12/02/18 12:47 Hgb 16.3 gm/dl (10.1-14.3) H 12/02/18 12:47 Hct 48.1 % (30.3-42.9) H 12/02/18 12:47 MCV 87 fl (79-97) 12/02/18 12:47 MCH 29 pg (28-32) 12/02/18 12:47 MCHC 34 % (30-34) 12/02/18 12:47 RDW 14.8 % (13.2-15.2) 12/02/18 12:47 Plt Count 226 K/mm3 (140-440) 12/02/18 12:47 Lymph % (Auto) 32.2 % (13.4-35.0) 12/02/18 12:47 [place] % (Auto) 5.0 % (0.0-7.3) 12/02/18 12:47 Eos % (Auto) 1.0 % (0.0-4.3) 12/02/18 12:47 Baso % (Auto) 1.0 % (0.0-1.8) 12/02/18 12:47 Lymph # 2.1 K/mm3 (1.2-5.4) 12/02/18 12:47 [place] # 0.3 K/mm3 (0.0-0.8) 12/02/18 12:47 Eos # 0.1 K/mm3 (0.0-0.4) 12/02/18 12:47 Baso # 0.1 K/mm3 (0.0-0.1) 12/02/18 12:47 Seg Neutrophils % 60.8 % (40.0-70.0) 12/02/18 12:47 Seg Neutrophils # 3.9 K/mm3 (1.8-7.7) 12/02/18 12:47 PT 12.1 Sec. (12.2-14.9) L 12/02/18 12:50 INR 0.85 (0.87-1.13) L 12/02/18 12:50 APTT 26.6 Sec. (24.2-36.6) 12/02/18 12:50 Thrombin Time 15.6 Sec. (15.1-19.6) 12/02/18 12:50 Sodium 138 mmol/L (137-145) 12/02/18 12:50 Potassium 3.7 mmol/L (3.6-5.0) 12/02/18 12:50 Chloride 102.3 mmol/L (98-107) 12/02/18 12:50 Carbon Dioxide 22 mmol/L (22-30) 12/02/18 12:50 Anion Gap 17 mmol/L 12/02/18 12:50 BUN 7 mg/dL (7-17) 12/02/18 12:50 Creatinine 0.7 mg/dL (0.7-1.2) 12/02/18 12:50 Estimated GFR > 60 ml/min 12/02/18 12:50 BUN/Creatinine Ratio 10 % 12/02/18 12:50 Glucose 91 mg/dL (65-100) 12/02/18 12:50 POC Glucose 82 (70-105) 12/02/18 13:45 Calcium 9.3 mg/dL (8.4-10.2) 12/02/18 12:50 Total Bilirubin 0.70 mg/dL (0.1-1.2) 12/02/18 12:50 AST 18 units/L (5-40) 12/02/18 12:50 ALT 27 units/L (7-56) 12/02/18 12:50 Alkaline Phosphatase 91 units/L (35-129) 12/02/18 12:50 Total Creatine Kinase 147 units/L (30-135) H 12/02/18 12:50 Troponin T < 0.010 ng/mL (0.00-0.029) 12/02/18 12:50 Total Protein 7.7 g/dL (6.3-8.2) 12/02/18 12:50 Albumin 4.2 g/dL (3.9-5) 12/02/18 12:50 Albumin/Globulin Ratio 1.2 % 12/02/18 12:50 Triglycerides 96 mg/dL (2-149) 12/03/18 05:07 Cholesterol 161 mg/dL (50-199) 12/03/18 05:07 LDL Cholesterol Direct 114 mg/dL (50-130) 12/03/18 05:07 HDL Cholesterol 36 mg/dL (40-59) L 12/03/18 05:07 Cholesterol/HDL Ratio 4.47 % 12/03/18 05:07 HCG, Quant < 2 mIU/mL (0-4) 12/02/18 12:50 Active Medications - Current Medications Current Medications: Generic Name Dose Route Start Last Admin Trade Name Freq PRN Reason Stop Dose Admin Acetaminophen 650 mg 12/02/18 18:21 12/03/18 21:05 Tylenol PO 650 mg Q4H PRN Administration Pain, Mild (1-3) Albuterol 2.5 mg 12/02/18 18:21 Proventil IH Q3HRT PRN Shortness Of Breath Aspirin 325 mg 12/03/18 10:00 12/04/18 10:09 Aspirin PO 325 mg QDAY LINUS Administration Atorvastatin Calcium 40 mg 12/02/18 22:00 12/03/18 21:04 Lipitor PO 40 mg QHS LINUS Administration Bisacodyl 10 mg 12/02/18 18:21 Dulcolax HI QDAY PRN Constipation Diphenhydramine HCl 25 mg 12/04/18 05:23 12/04/18 05:31 Benadryl PO 25 mg Q8H PRN Administration Itching Ibuprofen 600 mg 12/04/18 10:29 Motrin PO Q8H PRN Pain, Mild (1-3) Labetalol HCl 10 mg 12/02/18 12:39 Normodyne IV Q5MIN PRN to maintain SBP < 180 Magnesium Hydroxide 30 ml 12/02/18 18:21 Milk Of Magnesia PO Q4H PRN Constipation Metoclopramide HCl 10 mg 12/02/18 18:21 Reglan PO Q6H PRN Nausea And Vomiting Ondansetron HCl 4 mg 12/02/18 18:21 Zofran IV Q8H PRN Nausea And Vomiting Promethazine HCl 25 mg 12/02/18 18:21 Phenergan HI Q6H PRN Nausea And Vomiting Sodium Chloride 10 ml 12/02/18 18:21 Sodium Chloride Flush Syringe 10 Ml IV PRN PRN LINE FLUSH Nutrition/Malnutrition Assess - Dietary Evaluation Nutrition/Malnutrition Findings: Nutrition Notes Start: 12/04/18 09:42 Freq: Status: Active Protocol: Document 12/04/18 09:42 LEE (Rec: 12/04/18 09:45 LEE [email or web address]) Nutrition Notes 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 Burn Absent Trauma Absent Is patient on ventilator? No Is Patient Ambulatory and/or Out of Bed No REE-([facility]-confined to bed) 2036.028 Kcal/Kg value to use for calculation 16 Approximate Energy Requirements Using 1597 kcal/Kg Calculation Used for Recommendations Kcal/kg Additional Notes Pro needs 0.8-1g/kg adjBW: 64- 79g/day Fluid needs 1ml/kcal Nutrition Intervention Follow-Up By: 12/07/18 Additional Comments F/U: intakes
[2018-12-04] MEDS ORDERED: AFLURIA QUAD 2018-2019 SYRINGE IM ONE (12:00)
[2018-12-04] MEDS: IBUPROFEN PO PRN (13:35)
[2018-12-05] MEDS: ASPIRIN PO SCH (09:50)
--- NOTE | 2018-12-05 11:06 | Progress Note ---
Assessment and Plan Assessment and plan: Acute CVA. Patient received TPA in the emergency department. MRI/MRA negative. Echocardiogram reveals left ventricular chamber size normal with EF 50-55% and mild concentric left ventricular hypertrophy. PFO was not demonstrated. Carotid Dopplers negative. PT/OT. Obesity. Balanced diet, increased physical activity at discharge OHS/SORAYA. NIPPV as clinically indicated. supplemental oxygen, nebulizer therpay, pulse oximetry. Dyslipidemia. Continue statins. DVT prophylaxis. SCD to BLE while in bed, hold anticoagulation for 24 hours S/P TPA. Disposition. Physical therapy recommends acute rehabilitation. History Interval history: No new issues overnight. Hospitalist Physical - Constitutional Vitals: Temp Pulse Resp BP Pulse Ox 98.6 F 74 16 145/96 97 12/05/18 09:40 12/05/18 09:40 12/05/18 09:40 12/05/18 09:40 12/05/18 09:40 General appearance: Present: no acute distress - EENT Eyes: Present: PERRL, EOM intact ENT: hearing intact, clear oral mucosa, dentition normal - Neck Neck: Present: supple, normal ROM - Respiratory Respiratory effort: normal Respiratory: bilateral: CTA - Cardiovascular Rhythm: regular Heart Sounds: Present: S1 & S2. Absent: gallop, rub - Extremities Extremities: no ischemia, No edema, Full ROM - Abdominal General gastrointestinal: soft, non-tender, non-distended, normal bowel sounds - Integumentary Integumentary: Present: clear, warm, dry - Neurologic Neurologic: CNII-XII intact, moves all extremities Results - Labs CBC & Chem 7: 12/02/18 12:47 12/02/18 12:50 Labs: Laboratory Last Values WBC 6.4 K/mm3 (4.5-11.0) 12/02/18 12:47 RBC 5.54 M/mm3 (3.65-5.03) H 12/02/18 12:47 Hgb 16.3 gm/dl (10.1-14.3) H 12/02/18 12:47 Hct 48.1 % (30.3-42.9) H 12/02/18 12:47 MCV 87 fl (79-97) 12/02/18 12:47 MCH 29 pg (28-32) 12/02/18 12:47 MCHC 34 % (30-34) 12/02/18 12:47 RDW 14.8 % (13.2-15.2) 12/02/18 12:47 Plt Count 226 K/mm3 (140-440) 12/02/18 12:47 Lymph % (Auto) 32.2 % (13.4-35.0) 12/02/18 12:47 [place] % (Auto) 5.0 % (0.0-7.3) 12/02/18 12:47 Eos % (Auto) 1.0 % (0.0-4.3) 12/02/18 12:47 Baso % (Auto) 1.0 % (0.0-1.8) 12/02/18 12:47 Lymph # 2.1 K/mm3 (1.2-5.4) 12/02/18 12:47 [place] # 0.3 K/mm3 (0.0-0.8) 12/02/18 12:47 Eos # 0.1 K/mm3 (0.0-0.4) 12/02/18 12:47 Baso # 0.1 K/mm3 (0.0-0.1) 12/02/18 12:47 Seg Neutrophils % 60.8 % (40.0-70.0) 12/02/18 12:47 Seg Neutrophils # 3.9 K/mm3 (1.8-7.7) 12/02/18 12:47 PT 12.1 Sec. (12.2-14.9) L 12/02/18 12:50 INR 0.85 (0.87-1.13) L 12/02/18 12:50 APTT 26.6 Sec. (24.2-36.6) 12/02/18 12:50 Thrombin Time 15.6 Sec. (15.1-19.6) 12/02/18 12:50 Sodium 138 mmol/L (137-145) 12/02/18 12:50 Potassium 3.7 mmol/L (3.6-5.0) 12/02/18 12:50 Chloride 102.3 mmol/L (98-107) 12/02/18 12:50 Carbon Dioxide 22 mmol/L (22-30) 12/02/18 12:50 Anion Gap 17 mmol/L 12/02/18 12:50 BUN 7 mg/dL (7-17) 12/02/18 12:50 Creatinine 0.7 mg/dL (0.7-1.2) 12/02/18 12:50 Estimated GFR > 60 ml/min 12/02/18 12:50 BUN/Creatinine Ratio 10 % 12/02/18 12:50 Glucose 91 mg/dL (65-100) 12/02/18 12:50 POC Glucose 82 (70-105) 12/02/18 13:45 Calcium 9.3 mg/dL (8.4-10.2) 12/02/18 12:50 Total Bilirubin 0.70 mg/dL (0.1-1.2) 12/02/18 12:50 AST 18 units/L (5-40) 12/02/18 12:50 ALT 27 units/L (7-56) 12/02/18 12:50 Alkaline Phosphatase 91 units/L (35-129) 12/02/18 12:50 Total Creatine Kinase 147 units/L (30-135) H 12/02/18 12:50 Troponin T < 0.010 ng/mL (0.00-0.029) 12/02/18 12:50 Total Protein 7.7 g/dL (6.3-8.2) 12/02/18 12:50 Albumin 4.2 g/dL (3.9-5) 12/02/18 12:50 Albumin/Globulin Ratio 1.2 % 12/02/18 12:50 Triglycerides 96 mg/dL (2-149) 12/03/18 05:07 Cholesterol 161 mg/dL (50-199) 12/03/18 05:07 LDL Cholesterol Direct 114 mg/dL (50-130) 12/03/18 05:07 HDL Cholesterol 36 mg/dL (40-59) L 12/03/18 05:07 Cholesterol/HDL Ratio 4.47 % 12/03/18 05:07 TSH 1.810 mlU/mL (0.270-4.200) 12/05/18 00:20 HCG, Quant < 2 mIU/mL (0-4) 12/02/18 12:50 Active Medications - Current Medications Current Medications: Generic Name Dose Route Start Last Admin Trade Name Freq PRN Reason Stop Dose Admin Acetaminophen 650 mg 12/02/18 18:21 12/03/18 21:05 Tylenol PO 650 mg Q4H PRN Administration Pain, Mild (1-3) Albuterol 2.5 mg 12/02/18 18:21 Proventil IH Q3HRT PRN Shortness Of Breath Aspirin 325 mg 12/03/18 10:00 12/05/18 09:50 Aspirin PO 325 mg QDAY LINUS Administration Atorvastatin Calcium 40 mg 12/02/18 22:00 12/04/18 21:57 Lipitor PO 40 mg QHS LINUS Administration Bisacodyl 10 mg 12/02/18 18:21 Dulcolax [place] QDAY PRN Constipation Diphenhydramine HCl 25 mg 12/04/18 05:23 12/04/18 22:06 Benadryl PO 25 mg Q8H PRN Administration Itching Ibuprofen 600 mg 12/04/18 10:29 12/04/18 13:35 Motrin PO 600 mg Q8H PRN Administration Pain, Mild (1-3) Labetalol HCl 10 mg 12/02/18 12:39 Normodyne IV Q5MIN PRN to maintain SBP < 180 Magnesium Hydroxide 30 ml 12/02/18 18:21 Milk Of Magnesia PO Q4H PRN Constipation Metoclopramide HCl 10 mg 12/02/18 18:21 Reglan PO Q6H PRN Nausea And Vomiting Ondansetron HCl 4 mg 12/02/18 18:21 Zofran IV Q8H PRN Nausea And Vomiting Promethazine HCl 25 mg 12/02/18 18:21 Phenergan [place] Q6H PRN Nausea And Vomiting Sodium Chloride 10 ml 12/02/18 18:21 Sodium Chloride Flush Syringe 10 Ml IV PRN PRN LINE FLUSH Nutrition/Malnutrition Assess - Dietary Evaluation Nutrition/Malnutrition Findings: Nutrition Notes Start: 12/04/18 09:42 Freq: Status: Active Protocol: Document 12/04/18 09:42 LEE (Rec: 12/04/18 09:45 LEE [email or web address]) Nutrition Notes 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 Burn Absent Trauma Absent Is patient on ventilator? No Is Patient Ambulatory and/or Out of Bed No REE-([facility]-confined to bed) 2036.028 Kcal/Kg value to use for calculation 16 Approximate Energy Requirements Using 1597 kcal/Kg Calculation Used for Recommendations Kcal/kg Additional Notes Pro needs 0.8-1g/kg adjBW: 64- 79g/day Fluid needs 1ml/kcal Nutrition Intervention Follow-Up By: 12/07/18 Additional Comments F/U: intakes
--- NOTE | 2018-12-05 15:02 | Progress Note ---
Assessment and Plan CVA (cerebral vascular accident) s/p TPA Obesity bmi 35.5 Dyslipidemia -Continue with secondary stroke prophylaxis, permissive hypertension -Weight loss and life style modifications discussed -VTE prophylaxis -Evaluation for IRU -PT/OT/[employer] -Modified diet with aspiration precautions -Get TSH and HBA1C levels -Will need outpatient evaluation for sleep apnea, in view of obesity and acute CVA/HTN -Accucheck with glycemic control -Bowel regimen -Supportive care Subjective Date of service: 12/05/18 Interval history: Patient is seen today for: Acute CVA, Morbid obesity: probable sleep apnea Seen and examined at bedside; 24hour events reviewed; nursing and respiratory care staff consulted; no adverse overnight events reported to me; Denies any chest pain, no shortness of breath, no fevers or chills. No nausea or vomiting. Residual weakness of the left upper extremity Objective Vital Signs - 12hr 12/05/18 12/05/18 12/05/18 05:04 09:40 12:29 Temperature 98.2 F 98.6 F 98.4 F Pulse Rate 67 74 78 Respiratory 18 16 18 Rate Blood Pressure 148/84 145/96 167/118 O2 Sat by Pulse 93 97 93 Oximetry Gastrointestinal: normoactive bowel sounds CBC and BMP: 12/02/18 12:47 12/02/18 12:50 ABG, PT/INR, D-dimer: PT/INR, D-dimer PT 12.1 Sec. (12.2-14.9) L 12/02/18 12:50 INR 0.85 (0.87-1.13) L 12/02/18 12:50 Abnormal lab findings: Abnormal Labs 12/02/18 12/02/18 12/02/18 12:47 12:50 12:50 RBC 5.54 H Hgb 16.3 H Hct 48.1 H PT 12.1 L INR 0.85 L Hemoglobin A1c Total Creatine Kinase 147 H HDL Cholesterol 12/03/18 12/05/18 05:07 11:53 RBC Hgb Hct PT INR Hemoglobin A1c 6.1 H Total Creatine Kinase HDL Cholesterol 36 L
[2018-12-05] MEDS: BENADRYL PO PRN (21:34)
[2018-12-06] MEDS: ASPIRIN PO SCH (09:56)
--- NOTE | 2018-12-06 13:22 | Progress Note ---
Assessment and Plan - Patient Problems (1) Acute ischemic stroke Current Visit: Yes Status: Acute Plan to address problem: Acute ischemic stroke. Evaluated by physical therapy. Inpatient physical therapy recommended. Awaiting transfer. (2) CVA (cerebral vascular accident) Current Visit: Yes Status: Acute Qualifiers: Precerebral and cerebral artery: middle cerebral artery Laterality of affected vessel: left (3) Obesity hypoventilation syndrome Current Visit: Yes Status: Acute Plan to address problem: Educated on weight loss diet options. (4) Hypertension Current Visit: Yes Status: Acute Plan to address problem: Remains uncontrolled. We'll add pre-O agent amlodipine. Continue labetalol and advance oral antihypertensives. History Interval history: Patient with slight headache today with blood pressures elevated otherwise has been stable well controlled. Repeat blood pressure 137/87. Hospitalist Physical - Constitutional Vitals: Temp Pulse Resp BP Pulse Ox 97.7 F 72 18 174/88 93 12/06/18 12:27 12/06/18 12:27 12/06/18 12:27 12/06/18 12:27 12/06/18 12:27 General appearance: Present: no acute distress, obese - EENT Eyes: Present: PERRL ENT: hearing intact, clear oral mucosa, dentition normal - Neck Neck: Present: supple, normal ROM - Respiratory Respiratory: bilateral: CTA - Cardiovascular Rhythm: regular Heart Sounds: Present: S1 & S2 - Extremities Extremities: no ischemia, pulses intact, pulses symmetrical, normal temperature, normal color, abnormal Extremity abnormal: edema Peripheral Pulses: within normal limits - Abdominal General gastrointestinal: soft, non-tender, non-distended, normal bowel sounds, no hepatomegaly, no splenomegaly - Integumentary Integumentary: Present: clear, warm, dry - Psychiatric Psychiatric: appropriate mood/affect, intact judgment & insight, memory intact - Neurologic Neurologic: CNII-XII intact, focal deficits, moves all extremities Results - Labs CBC & Chem 7: 12/02/18 12:47 12/02/18 12:50 Labs: Laboratory Last Values WBC 6.4 K/mm3 (4.5-11.0) 12/02/18 12:47 RBC 5.54 M/mm3 (3.65-5.03) H 12/02/18 12:47 Hgb 16.3 gm/dl (10.1-14.3) H 12/02/18 12:47 Hct 48.1 % (30.3-42.9) H 12/02/18 12:47 MCV 87 fl (79-97) 12/02/18 12:47 MCH 29 pg (28-32) 12/02/18 12:47 MCHC 34 % (30-34) 12/02/18 12:47 RDW 14.8 % (13.2-15.2) 12/02/18 12:47 Plt Count 226 K/mm3 (140-440) 12/02/18 12:47 Lymph % (Auto) 32.2 % (13.4-35.0) 12/02/18 12:47 Williams % (Auto) 5.0 % (0.0-7.3) 12/02/18 12:47 Eos % (Auto) 1.0 % (0.0-4.3) 12/02/18 12:47 Baso % (Auto) 1.0 % (0.0-1.8) 12/02/18 12:47 Lymph # 2.1 K/mm3 (1.2-5.4) 12/02/18 12:47 Williams # 0.3 K/mm3 (0.0-0.8) 12/02/18 12:47 Eos # 0.1 K/mm3 (0.0-0.4) 12/02/18 12:47 Baso # 0.1 K/mm3 (0.0-0.1) 12/02/18 12:47 Seg Neutrophils % 60.8 % (40.0-70.0) 12/02/18 12:47 Seg Neutrophils # 3.9 K/mm3 (1.8-7.7) 12/02/18 12:47 PT 12.1 Sec. (12.2-14.9) L 12/02/18 12:50 INR 0.85 (0.87-1.13) L 12/02/18 12:50 APTT 26.6 Sec. (24.2-36.6) 12/02/18 12:50 Thrombin Time 15.6 Sec. (15.1-19.6) 12/02/18 12:50 Sodium 138 mmol/L (137-145) 12/02/18 12:50 Potassium 3.7 mmol/L (3.6-5.0) 12/02/18 12:50 Chloride 102.3 mmol/L (98-107) 12/02/18 12:50 Carbon Dioxide 22 mmol/L (22-30) 12/02/18 12:50 Anion Gap 17 mmol/L 12/02/18 12:50 BUN 7 mg/dL (7-17) 12/02/18 12:50 Creatinine 0.7 mg/dL (0.7-1.2) 12/02/18 12:50 Estimated GFR > 60 ml/min 12/02/18 12:50 BUN/Creatinine Ratio 10 % 12/02/18 12:50 Glucose 91 mg/dL (65-100) 12/02/18 12:50 POC Glucose 82 (70-105) 12/02/18 13:45 Hemoglobin A1c 6.1 % (4-6) H 12/05/18 11:53 Calcium 9.3 mg/dL (8.4-10.2) 12/02/18 12:50 Total Bilirubin 0.70 mg/dL (0.1-1.2) 12/02/18 12:50 AST 18 units/L (5-40) 12/02/18 12:50 ALT 27 units/L (7-56) 12/02/18 12:50 Alkaline Phosphatase 91 units/L (35-129) 12/02/18 12:50 Total Creatine Kinase 147 units/L (30-135) H 12/02/18 12:50 Troponin T < 0.010 ng/mL (0.00-0.029) 12/02/18 12:50 Total Protein 7.7 g/dL (6.3-8.2) 12/02/18 12:50 Albumin 4.2 g/dL (3.9-5) 12/02/18 12:50 Albumin/Globulin Ratio 1.2 % 12/02/18 12:50 Triglycerides 96 mg/dL (2-149) 12/03/18 05:07 Cholesterol 161 mg/dL (50-199) 12/03/18 05:07 LDL Cholesterol Direct 114 mg/dL (50-130) 12/03/18 05:07 HDL Cholesterol 36 mg/dL (40-59) L 12/03/18 05:07 Cholesterol/HDL Ratio 4.47 % 12/03/18 05:07 TSH 1.870 mlU/mL (0.270-4.200) 12/05/18 11:53 HCG, Quant < 2 mIU/mL (0-4) 12/02/18 12:50 Active Medications - Current Medications Current Medications: Generic Name Dose Route Start Last Admin Trade Name Freq PRN Reason Stop Dose Admin Acetaminophen 650 mg 12/02/18 18:21 12/03/18 21:05 Tylenol PO 650 mg Q4H PRN Administration Pain, Mild (1-3) Albuterol 2.5 mg 12/02/18 18:21 Proventil IH Q3HRT PRN Shortness Of Breath Aspirin 325 mg 12/03/18 10:00 12/06/18 09:56 Aspirin PO 325 mg QDAY LINUS Administration Atorvastatin Calcium 40 mg 12/02/18 22:00 12/05/18 21:34 Lipitor PO 40 mg QHS LINUS Administration Bisacodyl 10 mg 12/02/18 18:21 Dulcolax OH QDAY PRN Constipation Diphenhydramine HCl 25 mg 12/04/18 05:23 12/05/18 21:34 Benadryl PO 25 mg Q8H PRN Administration Itching Ibuprofen 600 mg 12/04/18 10:29 12/04/18 13:35 Motrin PO 600 mg Q8H PRN Administration Pain, Mild (1-3) Labetalol HCl 10 mg 12/02/18 12:39 Normodyne IV Q5MIN PRN to maintain SBP < 180 Magnesium Hydroxide 30 ml 12/02/18 18:21 Milk Of Magnesia PO Q4H PRN Constipation Metoclopramide HCl 10 mg 12/02/18 18:21 Reglan PO Q6H PRN Nausea And Vomiting Ondansetron HCl 4 mg 12/02/18 18:21 Zofran IV Q8H PRN Nausea And Vomiting Promethazine HCl 25 mg 12/02/18 18:21 Phenergan OH Q6H PRN Nausea And Vomiting Sodium Chloride 10 ml 12/02/18 18:21 Sodium Chloride Flush Syringe 10 Ml IV PRN PRN LINE FLUSH Nutrition/Malnutrition Assess - Dietary Evaluation Nutrition/Malnutrition Findings: Nutrition Notes Start: 12/04/18 09:42 Freq: Status: Active Protocol: Document 12/06/18 12:58 OH (Rec: 12/06/18 13:05 OH [id number]) Nutrition Notes 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 Subjective/Other Information RN skin risk screen: Pt. sitting up in chair. 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 Pt. reports she has not been following up with her PCP as she should have been. Pt. verbalizes understanding about fruits/ vegetables/leaving off processed foods. Pt. has children. Burn Absent Trauma Absent GI Symptoms None Current % PO Good (75-100%) #1 Nutrition Diagnosis Limited adherence to nutrition -related recommendations Etiology inadequate practice of following nutrition standards for health As Evidenced by Signs and Symptoms obesity/hx CVa Is patient on ventilator? No Is Patient Ambulatory and/or Out of Bed Yes REE-([place]-St. 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 Enc pt to follow up new PCP to evaluate/ manage [id number] diagnosis. Pt. verbalized understanding. Barriers to Learning Motivation,Physical Revisit per MD consult or patient Sign Off request:
[2018-12-06] MEDS ORDERED: NORVASC PO ONE (14:00)
[2018-12-06] MEDS ORDERED: FLEXERIL PO ONE (16:00)
--- NOTE | 2018-12-06 19:09 | Progress Note ---
Assessment and Plan Patient alert, awke and Morbidly Obese resting on room air. O2 saturation 91%. patient oriented. Denies chest pain, shortness of breath or cough. - Patient Problems (1) Acute ischemic stroke Current Visit: Yes Status: Acute Plan to address problem: Management as per neurology. (2) Hypertension Current Visit: Yes Status: Acute Plan to address problem: Management as per primary care. (3) Obesity hypoventilation syndrome Current Visit: Yes Status: Acute Plan to address problem: Recommend to loose weight ABgs on room air. Chest xray PA and lateral Albuterol aerosol treatments q 6 hours. Sleep study as out patient. Subjective Date of service: 12/06/18 Interval history: Patient alert, awke and Morbidly Obese resting on room air. O2 saturation 91%. patient oriented. Denies chest pain, shortness of breath or cough. Objective Vital Signs - 12hr 12/06/18 12/06/18 12/06/18 08:05 09:57 10:00 Temperature 98.0 F Pulse Rate 75 70 Respiratory 16 Rate Blood Pressure 176/101 147/75 O2 Sat by Pulse 95 Oximetry 12/06/18 12/06/18 12:27 16:18 Temperature 97.7 F 98.4 F Pulse Rate 72 75 Respiratory 18 16 Rate Blood Pressure 174/88 165/100 O2 Sat by Pulse 93 92 Oximetry Constitutional: no acute distress, alert Eyes: non-icteric Neck: supple, no lymphadenopathy Ascultation: Bilateral: diminished breath sounds Cardiovascular: regular rate and rhythm Gastrointestinal: normoactive bowel sounds, soft, non-tender Integumentary: normal, rash Extremities: no cyanosis, no edema Neurologic: normal mental status, pupils equal and round Psychiatric: mood appropriate CBC and BMP: 12/02/18 12:47 12/02/18 12:50 ABG, PT/INR, D-dimer: PT/INR, D-dimer PT 12.1 Sec. (12.2-14.9) L 12/02/18 12:50 INR 0.85 (0.87-1.13) L 12/02/18 12:50 Abnormal lab findings: Abnormal Labs 12/02/18 12/02/18 12/02/18 12:47 12:50 12:50 RBC 5.54 H Hgb 16.3 H Hct 48.1 H PT 12.1 L INR 0.85 L Hemoglobin A1c Total Creatine Kinase 147 H HDL Cholesterol 12/03/18 12/05/18 05:07 11:53 RBC Hgb Hct PT INR Hemoglobin A1c 6.1 H Total Creatine Kinase HDL Cholesterol 36 L
--- NOTE | 2018-12-07 08:51 | XRay Report ---
Chest 2 views: History: Obesity, hypoinflation. Findings: Normal cardiomediastinal silhouette. Trachea is midline. No consolidation, pneumothorax or pleural effusion. Impression: No acute cardiopulmonary findings.
[2018-12-07] MEDS: ASPIRIN PO SCH (09:55)
--- NOTE | 2018-12-07 11:29 | Progress Note ---
Assessment and Plan Assessment and plan: Acute ischemic stroke Patient received TPA in the emergency department. MRI/MRA negative. Echocardiogram reveals left ventricular chamber size normal with EF 50-55% and mild concentric left ventricular hypertrophy. PFO was not demonstrated. Carotid Dopplers negative. PT/OT. Obesity. Balanced diet, increased physical activity at discharge OHS/SORAYA. NIPPV as clinically indicated. supplemental oxygen, nebulizer therpay, pulse oximetry. Dyslipidemia. Continue statins. DVT prophylaxis. SCD to BLE while in bed, hold anticoagulation for 24 hours S/P TPA. Disposition. Physical therapy recommends acute rehabilitation. Discussed with Case management. History Interval history: left sided weakness Hospitalist Physical - Physical exam Narrative exam: Gen: Not in acute distress, lying in bed, morbidly obese HEENT: Normocephalic, atraumatic Neck: supple, no JVD Heart: S1 and S2 reg, no murmurs, rubs or gallop Lungs: Clear, no crackles Abd: soft, non tender, non distended, normal BS Ext: No edema, no clubbing, no cyanosis, Neuro: Awake,alert, oriented x 3, left sided weakness - Constitutional Vitals: Temp Pulse Resp BP Pulse Ox 98.2 F 90 18 165/110 95 12/07/18 07:26 12/07/18 07:26 12/07/18 08:00 12/07/18 07:26 12/07/18 07:26 General appearance: Present: no acute distress, obese Results - Labs CBC & Chem 7: 12/02/18 12:47 12/02/18 12:50 Labs: Laboratory Last Values WBC 6.4 K/mm3 (4.5-11.0) 12/02/18 12:47 RBC 5.54 M/mm3 (3.65-5.03) H 12/02/18 12:47 Hgb 16.3 gm/dl (10.1-14.3) H 12/02/18 12:47 Hct 48.1 % (30.3-42.9) H 12/02/18 12:47 MCV 87 fl (79-97) 12/02/18 12:47 MCH 29 pg (28-32) 12/02/18 12:47 MCHC 34 % (30-34) 12/02/18 12:47 RDW 14.8 % (13.2-15.2) 12/02/18 12:47 Plt Count 226 K/mm3 (140-440) 12/02/18 12:47 Lymph % (Auto) 32.2 % (13.4-35.0) 12/02/18 12:47 Williamson % (Auto) 5.0 % (0.0-7.3) 12/02/18 12:47 Eos % (Auto) 1.0 % (0.0-4.3) 12/02/18 12:47 Baso % (Auto) 1.0 % (0.0-1.8) 12/02/18 12:47 Lymph # 2.1 K/mm3 (1.2-5.4) 12/02/18 12:47 Williamson # 0.3 K/mm3 (0.0-0.8) 12/02/18 12:47 Eos # 0.1 K/mm3 (0.0-0.4) 12/02/18 12:47 Baso # 0.1 K/mm3 (0.0-0.1) 12/02/18 12:47 Seg Neutrophils % 60.8 % (40.0-70.0) 12/02/18 12:47 Seg Neutrophils # 3.9 K/mm3 (1.8-7.7) 12/02/18 12:47 PT 12.1 Sec. (12.2-14.9) L 12/02/18 12:50 INR 0.85 (0.87-1.13) L 12/02/18 12:50 APTT 26.6 Sec. (24.2-36.6) 12/02/18 12:50 15.6 Sec. (15.1-19.6) 12/02/18 12:50 POC ABG pH 7.446 (7.35-7.45) 12/07/18 10:52 POC ABG pCO2 35.4 (35-45) 12/07/18 10:52 POC ABG pO2 85 (80-105) 12/07/18 10:52 POC ABG HCO3 24.4 (22-26 mml/L) 12/07/18 10:52 POC ABG Total CO2 25 (23-27mmol/L) 12/07/18 10:52 POC ABG O2 Sat 97 12/07/18 10:52 POC ABG Base Excess 0 ((-2) - (+3)mmol/L) 12/07/18 10:52 21 % 12/07/18 10:52 Sodium 138 mmol/L (137-145) 12/02/18 12:50 Potassium 3.7 mmol/L (3.6-5.0) 12/02/18 12:50 Chloride 102.3 mmol/L (98-107) 12/02/18 12:50 Carbon Dioxide 22 mmol/L (22-30) 12/02/18 12:50 17 mmol/L 12/02/18 12:50 BUN 7 mg/dL (7-17) 12/02/18 12:50 0.7 mg/dL (0.7-1.2) 12/02/18 12:50 Estimated GFR > 60 ml/min 12/02/18 12:50 10 % 12/02/18 12:50 Glucose 91 mg/dL (65-100) 12/02/18 12:50 POC Glucose 82 (70-105) 12/02/18 13:45 6.1 % (4-6) H 12/05/18 11:53 Calcium 9.3 mg/dL (8.4-10.2) 12/02/18 12:50 0.70 mg/dL (0.1-1.2) 12/02/18 12:50 AST 18 units/L (5-40) 12/02/18 12:50 ALT 27 units/L (7-56) 12/02/18 12:50 91 units/L (35-129) 12/02/18 12:50 147 units/L (30-135) H 12/02/18 12:50 < 0.010 ng/mL (0.00-0.029) 12/02/18 12:50 7.7 g/dL (6.3-8.2) 12/02/18 12:50 4.2 g/dL (3.9-5) 12/02/18 12:50 1.2 % 12/02/18 12:50 Triglycerides 96 mg/dL (2-149) 12/03/18 05:07 Cholesterol 161 mg/dL (50-199) 12/03/18 05:07 114 mg/dL (50-130) 12/03/18 05:07 36 mg/dL (40-59) L 12/03/18 05:07 4.47 % 12/03/18 05:07 TSH 1.870 mlU/mL (0.270-4.200) 12/05/18 11:53 HCG, Quant < 2 mIU/mL (0-4) 12/02/18 12:50 Active Medications - Current Medications Current Medications: Generic Name Dose Route Start Last Admin Trade Name Freq PRN Reason Stop Dose Admin Albuterol 2.5 mg 12/02/18 18:21 Proventil IH Q3HRT PRN Shortness Of Breath Aspirin 325 mg 12/03/18 10:00 12/07/18 09:55 Aspirin PO 325 mg QDAY LINUS Administration Atorvastatin Calcium 40 mg 12/02/18 22:00 12/06/18 21:36 Lipitor PO 40 mg QHS LINUS Administration Bisacodyl 10 mg 12/02/18 18:21 Dulcolax SD QDAY PRN Constipation Diphenhydramine HCl 25 mg 12/04/18 05:23 12/05/18 21:34 Benadryl PO 25 mg Q8H PRN Administration Itching Ibuprofen 600 mg 12/04/18 10:29 12/04/18 13:35 Motrin PO 600 mg Q8H PRN Administration Pain, Mild (1-3) Labetalol HCl 10 mg 12/02/18 12:39 Normodyne IV Q5MIN PRN to maintain SBP < 180 Magnesium Hydroxide 30 ml 12/02/18 18:21 Milk Of Magnesia PO Q4H PRN Constipation Metoclopramide HCl 10 mg 12/02/18 18:21 Reglan PO Q6H PRN Nausea And Vomiting Ondansetron HCl 4 mg 12/02/18 18:21 Zofran IV Q8H PRN Nausea And Vomiting Promethazine HCl 25 mg 12/02/18 18:21 Phenergan SD Q6H PRN Nausea And Vomiting Sodium Chloride 10 ml 12/02/18 18:21 Sodium Chloride Flush Syringe 10 Ml IV PRN PRN LINE FLUSH Nutrition/Malnutrition Assess - Dietary Evaluation Nutrition/Malnutrition Findings: Nutrition Notes Start: 12/04/18 09:42 Freq: Status: Active Protocol: Document 12/06/18 12:58 OH (Rec: 12/06/18 13:05 OH [id number]) Nutrition Notes 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 Subjective/Other Information RN skin risk screen: Pt. sitting up in chair. 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 Pt. reports she has not been following up with her PCP as she should have been. Pt. verbalizes understanding about fruits/ vegetables/leaving off processed foods. Pt. has children. Burn Absent Trauma Absent GI Symptoms None Current % PO Good (75-100%) #1 Nutrition Diagnosis Limited adherence to nutrition -related recommendations Etiology inadequate practice of following nutrition standards for health As Evidenced by Signs and Symptoms obesity/hx CVa Is patient on ventilator? No Is Patient Ambulatory and/or Out of Bed Yes REE-([place]-St. 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 Enc pt to follow up new PCP to evaluate/ manage [id number] diagnosis. Pt. verbalized understanding. Barriers to Learning Motivation,Physical Revisit per MD consult or patient Sign Off request:
--- NOTE | 2018-12-07 18:17 | Progress Note ---
Assessment and Plan Patient alert, awke and Morbidly Obese resting on room air. O2 saturation 96%. patient oriented. Denies chest pain, shortness of breath or cough. - Patient Problems (1) Acute ischemic stroke Current Visit: Yes Status: Acute Plan to address problem: Management as per neurology. (2) Hypertension Current Visit: Yes Status: Acute Plan to address problem: Management as per primary care. (3) Obesity hypoventilation syndrome Current Visit: Yes Status: Acute Plan to address problem: Recommend to loose weight Albuterol aerosol treatments q 6 hours. Sleep study as out patient. Subjective Date of service: 12/07/18 Interval history: Patient alert, awke and Morbidly Obese resting on room air. O2 saturation 96%. patient oriented. Denies chest pain, shortness of breath or cough. Objective Vital Signs - 12hr 12/07/18 12/07/18 12/07/18 07:26 08:00 10:00 Temperature 98.2 F Pulse Rate 90 82 Respiratory 18 18 16 Rate Blood Pressure 165/110 O2 Sat by Pulse 95 Oximetry 12/07/18 12/07/18 11:55 16:32 Temperature 97.9 F 98.0 F Pulse Rate 84 76 Respiratory 16 16 Rate Blood Pressure 150/95 146/99 O2 Sat by Pulse 97 96 Oximetry Constitutional: no acute distress, alert Eyes: non-icteric Neck: supple, no lymphadenopathy Ascultation: Bilateral: diminished breath sounds Cardiovascular: regular rate and rhythm Gastrointestinal: normoactive bowel sounds, soft, non-tender Integumentary: normal, rash Extremities: no cyanosis, no edema Neurologic: normal mental status, pupils equal and round Psychiatric: mood appropriate CBC and BMP: 12/02/18 12:47 12/02/18 12:50 ABG, PT/INR, D-dimer: ABG POC ABG pH 7.446 (7.35-7.45) 12/07/18 10:52 POC ABG pCO2 35.4 (35-45) 12/07/18 10:52 POC ABG pO2 85 (80-105) 12/07/18 10:52 POC ABG HCO3 24.4 (22-26 mml/L) 12/07/18 10:52 POC ABG Total CO2 25 (23-27mmol/L) 12/07/18 10:52 POC ABG O2 Sat 97 12/07/18 10:52 PT/INR, D-dimer PT 12.1 Sec. (12.2-14.9) L 12/02/18 12:50 INR 0.85 (0.87-1.13) L 12/02/18 12:50 Abnormal lab findings: Abnormal Labs 12/02/18 12/02/18 12/02/18 12:47 12:50 12:50 RBC 5.54 H Hgb 16.3 H Hct 48.1 H PT 12.1 L INR 0.85 L Hemoglobin A1c Total Creatine Kinase 147 H HDL Cholesterol 12/03/18 12/05/18 05:07 11:53 RBC Hgb Hct PT INR Hemoglobin A1c 6.1 H Total Creatine Kinase HDL Cholesterol 36 L Chest x-ray: report reviewed (No acute cardiopulmonary findings.), image reviewed
[2018-12-07] MEDS ORDERED: FLEXERIL PO PRN (22:15)
[2018-12-08] MEDS: ASPIRIN PO SCH (09:20)
--- NOTE | 2018-12-08 13:42 | Progress Note ---
Assessment and Plan Assessment and plan: Acute ischemic stroke Patient received TPA in the emergency department. MRI/MRA negative. Echocardiogram reveals left ventricular chamber size normal with EF 50-55% and mild concentric left ventricular hypertrophy. PFO was not demonstrated. Carotid Dopplers negative. PT/OT. Obesity. Balanced diet, increased physical activity at discharge OHS/SOARYA. NIPPV as clinically indicated. supplemental oxygen, nebulizer therpay, pulse oximetry. Dyslipidemia. Continue statins. DVT prophylaxis. SCD to BLE while in bed, hold anticoagulation for 24 hours S/P TPA. Disposition. Physical therapy recommends acute rehabilitation. Discussed with Case management. History Interval history: left sided weakness Hospitalist Physical - Physical exam Narrative exam: Gen: Not in acute distress, lying in bed, morbidly obese HEENT: Normocephalic, atraumatic Neck: supple, no JVD Heart: S1 and S2 reg, no murmurs, rubs or gallop Lungs: Clear, no crackles Abd: soft, non tender, non distended, normal BS Ext: No edema, no clubbing, no cyanosis, Neuro: Awake,alert, oriented x 3, left sided weakness - Constitutional Vitals: Temp Pulse Resp BP Pulse Ox 97.9 F 75 18 142/78 95 12/08/18 12:12 12/08/18 12:12 12/08/18 12:12 12/08/18 12:12 12/08/18 12:12 General appearance: Present: no acute distress, obese Results - Labs CBC & Chem 7: 12/02/18 12:47 12/02/18 12:50 Labs: Laboratory Last Values WBC 6.4 K/mm3 (4.5-11.0) 12/02/18 12:47 RBC 5.54 M/mm3 (3.65-5.03) H 12/02/18 12:47 Hgb 16.3 gm/dl (10.1-14.3) H 12/02/18 12:47 Hct 48.1 % (30.3-42.9) H 12/02/18 12:47 MCV 87 fl (79-97) 12/02/18 12:47 MCH 29 pg (28-32) 12/02/18 12:47 MCHC 34 % (30-34) 12/02/18 12:47 RDW 14.8 % (13.2-15.2) 12/02/18 12:47 Plt Count 226 K/mm3 (140-440) 12/02/18 12:47 Lymph % (Auto) 32.2 % (13.4-35.0) 12/02/18 12:47 [place] % (Auto) 5.0 % (0.0-7.3) 12/02/18 12:47 Eos % (Auto) 1.0 % (0.0-4.3) 12/02/18 12:47 Baso % (Auto) 1.0 % (0.0-1.8) 12/02/18 12:47 Lymph # 2.1 K/mm3 (1.2-5.4) 12/02/18 12:47 [place] # 0.3 K/mm3 (0.0-0.8) 12/02/18 12:47 Eos # 0.1 K/mm3 (0.0-0.4) 12/02/18 12:47 Baso # 0.1 K/mm3 (0.0-0.1) 12/02/18 12:47 Seg Neutrophils % 60.8 % (40.0-70.0) 12/02/18 12:47 Seg Neutrophils # 3.9 K/mm3 (1.8-7.7) 12/02/18 12:47 PT 12.1 Sec. (12.2-14.9) L 12/02/18 12:50 INR 0.85 (0.87-1.13) L 12/02/18 12:50 APTT 26.6 Sec. (24.2-36.6) 12/02/18 12:50 15.6 Sec. (15.1-19.6) 12/02/18 12:50 POC ABG pH 7.446 (7.35-7.45) 12/07/18 10:52 POC ABG pCO2 35.4 (35-45) 12/07/18 10:52 POC ABG pO2 85 (80-105) 12/07/18 10:52 POC ABG HCO3 24.4 (22-26 mml/L) 12/07/18 10:52 POC ABG Total CO2 25 (23-27mmol/L) 12/07/18 10:52 POC ABG O2 Sat 97 12/07/18 10:52 POC ABG Base Excess 0 ((-2) - (+3)mmol/L) 12/07/18 10:52 21 % 12/07/18 10:52 Sodium 138 mmol/L (137-145) 12/02/18 12:50 Potassium 3.7 mmol/L (3.6-5.0) 12/02/18 12:50 Chloride 102.3 mmol/L (98-107) 12/02/18 12:50 Carbon Dioxide 22 mmol/L (22-30) 12/02/18 12:50 17 mmol/L 12/02/18 12:50 BUN 7 mg/dL (7-17) 12/02/18 12:50 0.7 mg/dL (0.7-1.2) 12/02/18 12:50 Estimated GFR > 60 ml/min 12/02/18 12:50 10 % 12/02/18 12:50 Glucose 91 mg/dL (65-100) 12/02/18 12:50 POC Glucose 82 (70-105) 12/02/18 13:45 6.1 % (4-6) H 12/05/18 11:53 Calcium 9.3 mg/dL (8.4-10.2) 12/02/18 12:50 0.70 mg/dL (0.1-1.2) 12/02/18 12:50 AST 18 units/L (5-40) 12/02/18 12:50 ALT 27 units/L (7-56) 12/02/18 12:50 91 units/L (35-129) 12/02/18 12:50 147 units/L (30-135) H 12/02/18 12:50 < 0.010 ng/mL (0.00-0.029) 12/02/18 12:50 7.7 g/dL (6.3-8.2) 12/02/18 12:50 4.2 g/dL (3.9-5) 12/02/18 12:50 1.2 % 12/02/18 12:50 Triglycerides 96 mg/dL (2-149) 12/03/18 05:07 Cholesterol 161 mg/dL (50-199) 12/03/18 05:07 114 mg/dL (50-130) 12/03/18 05:07 36 mg/dL (40-59) L 12/03/18 05:07 4.47 % 12/03/18 05:07 TSH 1.870 mlU/mL (0.270-4.200) 12/05/18 11:53 HCG, Quant < 2 mIU/mL (0-4) 12/02/18 12:50 Active Medications - Current Medications Current Medications: Generic Name Dose Route Start Last Admin Trade Name Freq PRN Reason Stop Dose Admin Albuterol 2.5 mg 12/02/18 18:21 Proventil IH Q3HRT PRN Shortness Of Breath Aspirin 325 mg 12/03/18 10:00 12/08/18 09:20 Aspirin PO 325 mg QDAY LINUS Administration Atorvastatin Calcium 40 mg 12/02/18 22:00 12/07/18 21:32 Lipitor PO 40 mg QHS LINUS Administration Bisacodyl 10 mg 12/02/18 18:21 Dulcolax DE QDAY PRN Constipation Cyclobenzaprine HCl 5 mg 12/07/18 22:15 Flexeril PO Q8H PRN Muscle Spasm Diphenhydramine HCl 25 mg 12/04/18 05:23 12/05/18 21:34 Benadryl PO 25 mg Q8H PRN Administration Itching Ibuprofen 600 mg 12/04/18 10:29 12/04/18 13:35 Motrin PO 600 mg Q8H PRN Administration Pain, Mild (1-3) Labetalol HCl 10 mg 12/02/18 12:39 Normodyne IV Q5MIN PRN to maintain SBP < 180 Magnesium Hydroxide 30 ml 12/02/18 18:21 Milk Of Magnesia PO Q4H PRN Constipation Metoclopramide HCl 10 mg 12/02/18 18:21 Reglan PO Q6H PRN Nausea And Vomiting Ondansetron HCl 4 mg 12/02/18 18:21 Zofran IV Q8H PRN Nausea And Vomiting Promethazine HCl 25 mg 12/02/18 18:21 Phenergan DE Q6H PRN Nausea And Vomiting Sodium Chloride 10 ml 12/02/18 18:21 Sodium Chloride Flush Syringe 10 Ml IV PRN PRN LINE FLUSH Nutrition/Malnutrition Assess - Dietary Evaluation Nutrition/Malnutrition Findings: Nutrition Notes Start: 12/04/18 09:42 Freq: Status: Active Protocol: Document 12/07/18 15:01 (Rec: 12/07/18 15:01 [id number]) Nutrition Notes Initial or Follow up Brief Note Subjective/Other Information Screened for skin risk. Mark 19 points. Nutrition Intervention Revisit per MD consult or patient Sign Off request:
--- NOTE | 2018-12-08 19:26 | Progress Note ---
Assessment and Plan Patient alert, awAke and Morbidly Obese resting on room air. O2 saturation 93%. patient oriented. Denies chest pain, shortness of breath or cough. - Patient Problems (1) Acute ischemic stroke Current Visit: Yes Status: Acute Plan to address problem: Management as per neurology. (2) Hypertension Current Visit: Yes Status: Acute Plan to address problem: Management as per primary care. (3) Obesity hypoventilation syndrome Current Visit: Yes Status: Acute Plan to address problem: Recommend to loose weight Albuterol aerosol treatments q 6 hours. Sleep study as out patient. Subjective Date of service: 12/08/18 Interval history: Patient alert, awAke and Morbidly Obese resting on room air. O2 saturation 93%. patient oriented. Denies chest pain, shortness of breath or cough. Objective Vital Signs - 12hr 12/08/18 12/08/18 12/08/18 07:50 12:12 16:28 Temperature 98.1 F 97.9 F 98.6 F Pulse Rate 78 75 81 Respiratory 18 18 18 Rate Blood Pressure 148/84 142/78 146/84 O2 Sat by Pulse 94 95 93 Oximetry Constitutional: no acute distress, alert Eyes: non-icteric Neck: supple, no lymphadenopathy Ascultation: Bilateral: diminished breath sounds Cardiovascular: regular rate and rhythm Gastrointestinal: normoactive bowel sounds, soft, non-tender Integumentary: normal, rash Extremities: no cyanosis, no edema Neurologic: normal mental status, pupils equal and round Psychiatric: mood appropriate CBC and BMP: 12/02/18 12:47 12/02/18 12:50 ABG, PT/INR, D-dimer: ABG POC ABG pH 7.446 (7.35-7.45) 12/07/18 10:52 POC ABG pCO2 35.4 (35-45) 12/07/18 10:52 POC ABG pO2 85 (80-105) 12/07/18 10:52 POC ABG HCO3 24.4 (22-26 mml/L) 12/07/18 10:52 POC ABG Total CO2 25 (23-27mmol/L) 12/07/18 10:52 POC ABG O2 Sat 97 12/07/18 10:52 PT/INR, D-dimer PT 12.1 Sec. (12.2-14.9) L 12/02/18 12:50 INR 0.85 (0.87-1.13) L 12/02/18 12:50 Abnormal lab findings: Abnormal Labs 12/02/18 12/02/18 12/02/18 12:47 12:50 12:50 RBC 5.54 H Hgb 16.3 H Hct 48.1 H PT 12.1 L INR 0.85 L Hemoglobin A1c Total Creatine Kinase 147 H HDL Cholesterol 12/03/18 12/05/18 05:07 11:53 RBC Hgb Hct PT INR Hemoglobin A1c 6.1 H Total Creatine Kinase HDL Cholesterol 36 L Chest x-ray: report reviewed (NO ACUTE CARDIOPULMONARY FINDINGS.), image reviewed
[2018-12-08] MEDS: BENADRYL PO PRN (21:27)
--- NOTE | 2018-12-09 09:22 | Progress Note ---
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 -Modified diet with aspiration precautions -Nicotine withdrawal precautions, start nicotine patch -Will need outpatient evaluation for sleep apnea, in view of obesity and acute CVA/HTN -Accucheck with glycemic control -Bowel regimen -Supportive care Discussed with hospitalist service Discharge planning Subjective Date of service: 12/09/18 Interval history: Patient is seen today for: Acute CVA, Morbid obesity: probable sleep apnea Seen and examined at bedside; 24hour events reviewed; nursing and respiratory care staff consulted; no adverse overnight events reported to me; Denies any chest pain, no shortness of breath, no fevers or chills. No nausea or vomiting. Residual weakness of the left upper extremity. Feels anxious, and it may be from nicotine withdrawal. was smoking a pack of cigars a day Objective - Exam Narrative Exam: Gen: Not in acute distress, lying in bed, morbidly obese HEENT: Normocephalic, atraumatic Neck: supple, no JVD Heart: S1 and S2 reg, no murmurs, rubs or gallop Lungs: Clear, no crackles Abd: soft, non tender, non distended, normal BS Ext: No edema, no clubbing, no cyanosis, Neuro: Awake,alert, oriented x 3, left sided weakness Vital Signs - 12hr 12/08/18 12/08/18 12/09/18 22:00 23:50 05:45 Temperature 98.2 F 97.5 F L Pulse Rate 66 68 67 Respiratory 20 18 Rate Blood Pressure 140/82 150/83 O2 Sat by Pulse 95 96 Oximetry 12/09/18 12/09/18 08:15 08:17 Temperature 97.8 F Pulse Rate 74 Respiratory 18 Rate Blood Pressure 158/96 O2 Sat by Pulse 97 Oximetry Constitutional: no acute distress, alert Eyes: non-icteric Neck: supple, no lymphadenopathy Ascultation: Bilateral: diminished breath sounds Cardiovascular: regular rate and rhythm Gastrointestinal: normoactive bowel sounds, soft, non-tender Integumentary: normal, rash Extremities: no cyanosis, no edema Neurologic: normal mental status, pupils equal and round Psychiatric: mood appropriate CBC and BMP: 12/02/18 12:47 12/02/18 12:50 ABG, PT/INR, D-dimer: ABG POC ABG pH 7.446 (7.35-7.45) 12/07/18 10:52 POC ABG pCO2 35.4 (35-45) 12/07/18 10:52 POC ABG pO2 85 (80-105) 12/07/18 10:52 POC ABG HCO3 24.4 (22-26 mml/L) 12/07/18 10:52 POC ABG Total CO2 25 (23-27mmol/L) 12/07/18 10:52 POC ABG O2 Sat 97 12/07/18 10:52 PT/INR, D-dimer PT 12.1 Sec. (12.2-14.9) L 12/02/18 12:50 INR 0.85 (0.87-1.13) L 12/02/18 12:50 Abnormal lab findings: Abnormal Labs 12/02/18 12/02/18 12/02/18 12:47 12:50 12:50 RBC 5.54 H Hgb 16.3 H Hct 48.1 H PT 12.1 L INR 0.85 L Hemoglobin A1c Total Creatine Kinase 147 H HDL Cholesterol 12/03/18 12/05/18 05:07 11:53 RBC Hgb Hct PT INR Hemoglobin A1c 6.1 H Total Creatine Kinase HDL Cholesterol 36 L
[2018-12-09] MEDS: ASPIRIN PO SCH (10:20)
[2018-12-09] MEDS ORDERED: AFLURIA QUAD 2018-2019 SYRINGE IM ONE (12:00)
[2018-12-09] MEDS ORDERED: PNEUMOVAX 23 IM ONE (12:00)
[2018-12-09] MEDS: HABITROL TD SCH (14:39)
--- NOTE | 2018-12-09 14:50 | Progress Note ---
Assessment and Plan Assessment and plan: Acute ischemic stroke Patient received TPA in the emergency department. MRI/MRA negative. Echocardiogram reveals left ventricular chamber size normal with EF 50-55% and mild concentric left ventricular hypertrophy. PFO was not demonstrated. Carotid Dopplers negative. PT/OT. Obesity. Balanced diet, increased physical activity at discharge OHS/SORAYA. NIPPV as clinically indicated. supplemental oxygen, nebulizer therpay, pulse oximetry. Dyslipidemia. Continue statins. DVT prophylaxis. SCD to BLE while in bed, hold anticoagulation for 24 hours S/P TPA. Disposition. Physical therapy recommends acute rehabilitation. Tobacco use. Give Nicotine patch Discussed with Case management. Working on transfer to Acute Rehab History Interval history: Left sided weakness Asking for Nicotine patch Hospitalist Physical - Physical exam Narrative exam: Gen: Not in acute distress, lying in bed, morbidly obese HEENT: Normocephalic, atraumatic Neck: supple, no JVD Heart: S1 and S2 reg, no murmurs, rubs or gallop Lungs: Clear, no crackles Abd: soft, non tender, non distended, normal BS Ext: No edema, no clubbing, no cyanosis, Neuro: Awake,alert, oriented x 3, left sided weakness - Constitutional Vitals: Temp Pulse Resp BP Pulse Ox 98.4 F 76 18 136/82 99 12/09/18 12:34 12/09/18 12:32 12/09/18 12:32 12/09/18 12:32 12/09/18 12:32 General appearance: Present: no acute distress, obese Results - Labs CBC & Chem 7: 12/02/18 12:47 12/02/18 12:50 Labs: Laboratory Last Values WBC 6.4 K/mm3 (4.5-11.0) 12/02/18 12:47 RBC 5.54 M/mm3 (3.65-5.03) H 12/02/18 12:47 Hgb 16.3 gm/dl (10.1-14.3) H 12/02/18 12:47 Hct 48.1 % (30.3-42.9) H 12/02/18 12:47 MCV 87 fl (79-97) 12/02/18 12:47 MCH 29 pg (28-32) 12/02/18 12:47 MCHC 34 % (30-34) 12/02/18 12:47 RDW 14.8 % (13.2-15.2) 12/02/18 12:47 Plt Count 226 K/mm3 (140-440) 12/02/18 12:47 Lymph % (Auto) 32.2 % (13.4-35.0) 12/02/18 12:47 [place] % (Auto) 5.0 % (0.0-7.3) 12/02/18 12:47 Eos % (Auto) 1.0 % (0.0-4.3) 12/02/18 12:47 Baso % (Auto) 1.0 % (0.0-1.8) 12/02/18 12:47 Lymph # 2.1 K/mm3 (1.2-5.4) 12/02/18 12:47 [place] # 0.3 K/mm3 (0.0-0.8) 12/02/18 12:47 Eos # 0.1 K/mm3 (0.0-0.4) 12/02/18 12:47 Baso # 0.1 K/mm3 (0.0-0.1) 12/02/18 12:47 Seg Neutrophils % 60.8 % (40.0-70.0) 12/02/18 12:47 Seg Neutrophils # 3.9 K/mm3 (1.8-7.7) 12/02/18 12:47 PT 12.1 Sec. (12.2-14.9) L 12/02/18 12:50 INR 0.85 (0.87-1.13) L 12/02/18 12:50 APTT 26.6 Sec. (24.2-36.6) 12/02/18 12:50 15.6 Sec. (15.1-19.6) 12/02/18 12:50 POC ABG pH 7.446 (7.35-7.45) 12/07/18 10:52 POC ABG pCO2 35.4 (35-45) 12/07/18 10:52 POC ABG pO2 85 (80-105) 12/07/18 10:52 POC ABG HCO3 24.4 (22-26 mml/L) 12/07/18 10:52 POC ABG Total CO2 25 (23-27mmol/L) 12/07/18 10:52 POC ABG O2 Sat 97 12/07/18 10:52 POC ABG Base Excess 0 ((-2) - (+3)mmol/L) 12/07/18 10:52 21 % 12/07/18 10:52 Sodium 138 mmol/L (137-145) 12/02/18 12:50 Potassium 3.7 mmol/L (3.6-5.0) 12/02/18 12:50 Chloride 102.3 mmol/L (98-107) 12/02/18 12:50 Carbon Dioxide 22 mmol/L (22-30) 12/02/18 12:50 17 mmol/L 12/02/18 12:50 BUN 7 mg/dL (7-17) 12/02/18 12:50 0.7 mg/dL (0.7-1.2) 12/02/18 12:50 Estimated GFR > 60 ml/min 12/02/18 12:50 10 % 12/02/18 12:50 Glucose 91 mg/dL (65-100) 12/02/18 12:50 POC Glucose 82 (70-105) 12/02/18 13:45 6.1 % (4-6) H 12/05/18 11:53 Calcium 9.3 mg/dL (8.4-10.2) 12/02/18 12:50 0.70 mg/dL (0.1-1.2) 12/02/18 12:50 AST 18 units/L (5-40) 12/02/18 12:50 ALT 27 units/L (7-56) 12/02/18 12:50 91 units/L (35-129) 12/02/18 12:50 147 units/L (30-135) H 12/02/18 12:50 < 0.010 ng/mL (0.00-0.029) 12/02/18 12:50 7.7 g/dL (6.3-8.2) 12/02/18 12:50 4.2 g/dL (3.9-5) 12/02/18 12:50 1.2 % 12/02/18 12:50 Triglycerides 96 mg/dL (2-149) 12/03/18 05:07 Cholesterol 161 mg/dL (50-199) 12/03/18 05:07 114 mg/dL (50-130) 12/03/18 05:07 36 mg/dL (40-59) L 12/03/18 05:07 4.47 % 12/03/18 05:07 TSH 1.870 mlU/mL (0.270-4.200) 12/05/18 11:53 HCG, Quant < 2 mIU/mL (0-4) 12/02/18 12:50 Active Medications - Current Medications Current Medications: Generic Name Dose Route Start Last Admin Trade Name Freq PRN Reason Stop Dose Admin Albuterol 2.5 mg 12/02/18 18:21 Proventil IH Q3HRT PRN Shortness Of Breath Aspirin 325 mg 12/03/18 10:00 12/09/18 10:20 Aspirin PO 325 mg QDAY LINUS Administration Atorvastatin Calcium 40 mg 12/02/18 22:00 12/08/18 21:25 Lipitor PO 40 mg QHS LINUS Administration Bisacodyl 10 mg 12/02/18 18:21 Dulcolax HI QDAY PRN Constipation Cyclobenzaprine HCl 5 mg 12/07/18 22:15 Flexeril PO Q8H PRN Muscle Spasm Diphenhydramine HCl 25 mg 12/04/18 05:23 12/08/18 21:27 Benadryl PO 25 mg Q8H PRN Administration Itching Ibuprofen 600 mg 12/04/18 10:29 12/04/18 13:35 Motrin PO 600 mg Q8H PRN Administration Pain, Mild (1-3) Labetalol HCl 10 mg 12/02/18 12:39 Normodyne IV Q5MIN PRN to maintain SBP < 180 Magnesium Hydroxide 30 ml 12/02/18 18:21 Milk Of Magnesia PO Q4H PRN Constipation Metoclopramide HCl 10 mg 12/02/18 18:21 Reglan PO Q6H PRN Nausea And Vomiting Nicotine 21 mg 12/09/18 13:00 12/09/18 14:39 Habitrol TD 21 mg QDAY LINUS Administration Ondansetron HCl 4 mg 12/02/18 18:21 Zofran IV Q8H PRN Nausea And Vomiting Promethazine HCl 25 mg 12/02/18 18:21 Phenergan HI Q6H PRN Nausea And Vomiting Sodium Chloride 10 ml 12/02/18 18:21 12/08/18 21:27 Sodium Chloride Flush Syringe 10 Ml IV 10 ml PRN PRN Administration LINE FLUSH Nutrition/Malnutrition Assess - Dietary Evaluation Nutrition/Malnutrition Findings: Nutrition Notes Start: 12/04/18 09:42 Freq: Status: Active Protocol: Document 12/07/18 15:01 (Rec: 12/07/18 15:01 [id number]) Nutrition Notes Initial or Follow up Brief Note Subjective/Other Information Screened for skin risk. Mark 19 points. Nutrition Intervention Revisit per MD consult or patient Sign Off request:
[2018-12-09] MEDS: IBUPROFEN PO PRN (22:11)
--- NOTE | 2018-12-10 09:01 | Progress Note ---
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 diet with aspiration precautions -Nicotine withdrawal precautions, continue nicotine patch -Smoking cessation counselling, on going -Will need outpatient evaluation for sleep apnea, in view of obesity and acute CVA/HTN -Accucheck with glycemic control -Bowel regimen -Supportive care Discussed with hospitalist service Discharge planning, awaiting IRU Subjective Date of service: 12/10/18 Interval history: Patient is seen today for: Acute CVA, Morbid obesity: probable sleep apnea Seen and examined at bedside; 24hour events reviewed; nursing and respiratory care staff consulted; no adverse overnight events reported to me; Denies any chest pain, no shortness of breath, no fevers or chills. No nausea or vomiting. Residual weakness of the left upper extremity. Feels anxious Objective Vital Signs - 12hr 12/09/18 12/10/18 12/10/18 23:14 03:42 07:34 Temperature 97.8 F 97.9 F 98.4 F Pulse Rate 86 78 Respiratory 16 16 18 Rate Blood Pressure 144/78 146/80 153/95 O2 Sat by Pulse 94 97 Oximetry Constitutional: no acute distress, alert Eyes: non-icteric Neck: supple, no lymphadenopathy Effort: normal Ascultation: Bilateral: diminished breath sounds Cardiovascular: regular rate and rhythm, other (S1,S2, no murmurs, gallops or rubs) Gastrointestinal: normoactive bowel sounds, soft, non-tender Integumentary: normal, rash Extremities: no cyanosis, no edema Neurologic: normal mental status, pupils equal and round Psychiatric: mood appropriate, affect normal CBC and BMP: 12/02/18 12:47 12/02/18 12:50 ABG, PT/INR, D-dimer: ABG POC ABG pH 7.446 (7.35-7.45) 12/07/18 10:52 POC ABG pCO2 35.4 (35-45) 12/07/18 10:52 POC ABG pO2 85 (80-105) 12/07/18 10:52 POC ABG HCO3 24.4 (22-26 mml/L) 12/07/18 10:52 POC ABG Total CO2 25 (23-27mmol/L) 12/07/18 10:52 POC ABG O2 Sat 97 12/07/18 10:52 PT/INR, D-dimer PT 12.1 Sec. (12.2-14.9) L 12/02/18 12:50 INR 0.85 (0.87-1.13) L 12/02/18 12:50 Abnormal lab findings: Abnormal Labs 12/02/18 12/02/18 12/02/18 12:47 12:50 12:50 RBC 5.54 H Hgb 16.3 H Hct 48.1 H PT 12.1 L INR 0.85 L Hemoglobin A1c Total Creatine Kinase 147 H HDL Cholesterol 12/03/18 12/05/18 05:07 11:53 RBC Hgb Hct PT INR Hemoglobin A1c 6.1 H Total Creatine Kinase HDL Cholesterol 36 L Allied health notes reviewed: nursing
[2018-12-10] MEDS: ASPIRIN PO SCH (10:31)
[2018-12-10] MEDS: IBUPROFEN PO PRN ×2 (10:31→18:58)
[2018-12-10] MEDS: HABITROL TD SCH (10:31)
--- NOTE | 2018-12-10 12:15 | Progress Note ---
Assessment and Plan Assessment and plan: Acute ischemic stroke Patient received TPA in the emergency department. MRI/MRA negative. Echocardiogram reveals left ventricular chamber size normal with EF 50-55% and mild concentric left ventricular hypertrophy. PFO was not demonstrated. Carotid Dopplers negative. PT/OT. Obesity. Balanced diet, increased physical activity at discharge OHS/SORAYA. NIPPV as clinically indicated. supplemental oxygen, nebulizer therpay, pulse oximetry. Dyslipidemia. Continue statins. DVT prophylaxis. SCD to BLE while in bed, hold anticoagulation for 24 hours S/P TPA. Disposition. Physical therapy recommends acute rehabilitation. Tobacco use. Give Nicotine patch Fever of 100.5 likely due to vaccines yesterday will monitor Discussed with Case management. Working on transfer to Acute Rehab History Interval history: Left sided weakness Fever of 100.5 this morning, however mentioned she had vaccines yesterday Hospitalist Physical - Physical exam Narrative exam: Gen: Not in acute distress, lying in bed, morbidly obese HEENT: Normocephalic, atraumatic Neck: supple, no JVD Heart: S1 and S2 reg, no murmurs, rubs or gallop Lungs: Clear, no crackles Abd: soft, non tender, non distended, normal BS Ext: No edema, no clubbing, no cyanosis, Neuro: Awake,alert, oriented x 3, left sided weakness - Constitutional Vitals: Temp Pulse Resp BP Pulse Ox 98.4 F 78 18 153/95 97 12/10/18 07:34 12/10/18 03:42 12/10/18 07:34 12/10/18 07:34 12/10/18 03:42 General appearance: Present: no acute distress, obese Results - Labs CBC & Chem 7: 12/02/18 12:47 12/02/18 12:50 Labs: Laboratory Last Values WBC 6.4 K/mm3 (4.5-11.0) 12/02/18 12:47 RBC 5.54 M/mm3 (3.65-5.03) H 12/02/18 12:47 Hgb 16.3 gm/dl (10.1-14.3) H 12/02/18 12:47 Hct 48.1 % (30.3-42.9) H 12/02/18 12:47 MCV 87 fl (79-97) 12/02/18 12:47 MCH 29 pg (28-32) 12/02/18 12:47 MCHC 34 % (30-34) 12/02/18 12:47 RDW 14.8 % (13.2-15.2) 12/02/18 12:47 Plt Count 226 K/mm3 (140-440) 12/02/18 12:47 Lymph % (Auto) 32.2 % (13.4-35.0) 12/02/18 12:47 [place] % (Auto) 5.0 % (0.0-7.3) 12/02/18 12:47 Eos % (Auto) 1.0 % (0.0-4.3) 12/02/18 12:47 Baso % (Auto) 1.0 % (0.0-1.8) 12/02/18 12:47 Lymph # 2.1 K/mm3 (1.2-5.4) 12/02/18 12:47 [place] # 0.3 K/mm3 (0.0-0.8) 12/02/18 12:47 Eos # 0.1 K/mm3 (0.0-0.4) 12/02/18 12:47 Baso # 0.1 K/mm3 (0.0-0.1) 12/02/18 12:47 Seg Neutrophils % 60.8 % (40.0-70.0) 12/02/18 12:47 Seg Neutrophils # 3.9 K/mm3 (1.8-7.7) 12/02/18 12:47 PT 12.1 Sec. (12.2-14.9) L 12/02/18 12:50 INR 0.85 (0.87-1.13) L 12/02/18 12:50 APTT 26.6 Sec. (24.2-36.6) 12/02/18 12:50 15.6 Sec. (15.1-19.6) 12/02/18 12:50 POC ABG pH 7.446 (7.35-7.45) 12/07/18 10:52 POC ABG pCO2 35.4 (35-45) 12/07/18 10:52 POC ABG pO2 85 (80-105) 12/07/18 10:52 POC ABG HCO3 24.4 (22-26 mml/L) 12/07/18 10:52 POC ABG Total CO2 25 (23-27mmol/L) 12/07/18 10:52 POC ABG O2 Sat 97 12/07/18 10:52 POC ABG Base Excess 0 ((-2) - (+3)mmol/L) 12/07/18 10:52 21 % 12/07/18 10:52 Sodium 138 mmol/L (137-145) 12/02/18 12:50 Potassium 3.7 mmol/L (3.6-5.0) 12/02/18 12:50 Chloride 102.3 mmol/L (98-107) 12/02/18 12:50 Carbon Dioxide 22 mmol/L (22-30) 12/02/18 12:50 17 mmol/L 12/02/18 12:50 BUN 7 mg/dL (7-17) 12/02/18 12:50 0.7 mg/dL (0.7-1.2) 12/02/18 12:50 Estimated GFR > 60 ml/min 12/02/18 12:50 10 % 12/02/18 12:50 Glucose 91 mg/dL (65-100) 12/02/18 12:50 POC Glucose 82 (70-105) 12/02/18 13:45 6.1 % (4-6) H 12/05/18 11:53 Calcium 9.3 mg/dL (8.4-10.2) 12/02/18 12:50 0.70 mg/dL (0.1-1.2) 12/02/18 12:50 AST 18 units/L (5-40) 12/02/18 12:50 ALT 27 units/L (7-56) 12/02/18 12:50 91 units/L (35-129) 12/02/18 12:50 147 units/L (30-135) H 12/02/18 12:50 < 0.010 ng/mL (0.00-0.029) 12/02/18 12:50 7.7 g/dL (6.3-8.2) 12/02/18 12:50 4.2 g/dL (3.9-5) 12/02/18 12:50 1.2 % 12/02/18 12:50 Triglycerides 96 mg/dL (2-149) 12/03/18 05:07 Cholesterol 161 mg/dL (50-199) 12/03/18 05:07 114 mg/dL (50-130) 12/03/18 05:07 36 mg/dL (40-59) L 12/03/18 05:07 4.47 % 12/03/18 05:07 TSH 1.870 mlU/mL (0.270-4.200) 12/05/18 11:53 HCG, Quant < 2 mIU/mL (0-4) 12/02/18 12:50 Active Medications - Current Medications Current Medications: Generic Name Dose Route Start Last Admin Trade Name Freq PRN Reason Stop Dose Admin Albuterol 2.5 mg 12/02/18 18:21 Proventil IH Q3HRT PRN Shortness Of Breath Aspirin 325 mg 12/03/18 10:00 12/10/18 10:31 Aspirin PO 325 mg QDAY LINUS Administration Atorvastatin Calcium 40 mg 12/02/18 22:00 12/09/18 21:14 Lipitor PO 40 mg QHS LINUS Administration Bisacodyl 10 mg 12/02/18 18:21 Dulcolax [place] QDAY PRN Constipation Cyclobenzaprine HCl 5 mg 12/07/18 22:15 Flexeril PO Q8H PRN Muscle Spasm Diphenhydramine HCl 25 mg 12/04/18 05:23 12/08/18 21:27 Benadryl PO 25 mg Q8H PRN Administration Itching Ibuprofen 600 mg 12/04/18 10:29 12/10/18 10:31 Motrin PO 600 mg Q8H PRN Administration Pain, Mild (1-3) Labetalol HCl 10 mg 12/02/18 12:39 Normodyne IV Q5MIN PRN to maintain SBP < 180 Magnesium Hydroxide 30 ml 12/02/18 18:21 Milk Of Magnesia PO Q4H PRN Constipation Metoclopramide HCl 10 mg 12/02/18 18:21 Reglan PO Q6H PRN Nausea And Vomiting Nicotine 21 mg 12/09/18 13:00 12/10/18 10:31 Habitrol TD 21 mg QDAY LINUS Administration Ondansetron HCl 4 mg 12/02/18 18:21 Zofran IV Q8H PRN Nausea And Vomiting Promethazine HCl 25 mg 12/02/18 18:21 Phenergan [place] Q6H PRN Nausea And Vomiting Sodium Chloride 10 ml 12/02/18 18:21 12/08/18 21:27 Sodium Chloride Flush Syringe 10 Ml IV 10 ml PRN PRN Administration LINE FLUSH Nutrition/Malnutrition Assess - Dietary Evaluation Nutrition/Malnutrition Findings: Nutrition Notes Start: 12/04/18 09:42 Freq: Status: Active Protocol: Document 12/07/18 15:01 (Rec: 12/07/18 15:01 [id number]) Nutrition Notes Initial or Follow up Brief Note Subjective/Other Information Screened for skin risk. Mark 19 points. Nutrition Intervention Revisit per MD consult or patient Sign Off request:
[2018-12-10] MEDS ORDERED: NORVASC PO SCH (18:20)
--- NOTE | 2018-12-11 09:08 | Progress Note ---
Assessment and Plan Assessment and plan: Acute ischemic stroke Patient received TPA in the emergency department. MRI/MRA negative. Echocardiogram reveals left ventricular chamber size normal with EF 50-55% and mild concentric left ventricular hypertrophy. PFO was not demonstrated. Carotid Dopplers negative. PT/OT. Obesity. Balanced diet, increased physical activity at discharge OHS/SORAYA. NIPPV as clinically indicated. supplemental oxygen, nebulizer therpay, pulse oximetry. HTN BP uncontrolled Increase Norvasc to 10mg Dyslipidemia. Continue statins. DVT prophylaxis. SCD to BLE while in bed, hold anticoagulation for 24 hours S/P TPA. Disposition. Physical therapy recommends acute rehabilitation. Tobacco use. Give Nicotine patch Fever of 100.5 due to vaccines 12/09 Now resooved Discussed with Case management. Working on transfer to Acute Rehab History Interval history: Left sided weakness Fever of 100.5 yesterday, however mentioned she had vaccines the day before. Hospitalist Physical - Physical exam Narrative exam: Gen: Not in acute distress, lying in bed, morbidly obese HEENT: Normocephalic, atraumatic Neck: supple, no JVD Heart: S1 and S2 reg, no murmurs, rubs or gallop Lungs: Clear, no crackles Abd: soft, non tender, non distended, normal BS Ext: No edema, no clubbing, no cyanosis, Neuro: Awake,alert, oriented x 3, left sided weakness - Constitutional Vitals: Temp Pulse Resp BP Pulse Ox 98.8 F 88 20 152/66 96 12/11/18 05:37 12/11/18 05:37 12/11/18 05:37 12/11/18 05:37 12/11/18 05:37 General appearance: Present: no acute distress, obese Results - Labs CBC & Chem 7: 12/02/18 12:47 12/02/18 12:50 Labs: Laboratory Last Values WBC 6.4 K/mm3 (4.5-11.0) 12/02/18 12:47 RBC 5.54 M/mm3 (3.65-5.03) H 12/02/18 12:47 Hgb 16.3 gm/dl (10.1-14.3) H 12/02/18 12:47 Hct 48.1 % (30.3-42.9) H 12/02/18 12:47 MCV 87 fl (79-97) 12/02/18 12:47 MCH 29 pg (28-32) 12/02/18 12:47 MCHC 34 % (30-34) 12/02/18 12:47 RDW 14.8 % (13.2-15.2) 12/02/18 12:47 Plt Count 226 K/mm3 (140-440) 12/02/18 12:47 Lymph % (Auto) 32.2 % (13.4-35.0) 12/02/18 12:47 [place] % (Auto) 5.0 % (0.0-7.3) 12/02/18 12:47 Eos % (Auto) 1.0 % (0.0-4.3) 12/02/18 12:47 Baso % (Auto) 1.0 % (0.0-1.8) 12/02/18 12:47 Lymph # 2.1 K/mm3 (1.2-5.4) 12/02/18 12:47 [place] # 0.3 K/mm3 (0.0-0.8) 12/02/18 12:47 Eos # 0.1 K/mm3 (0.0-0.4) 12/02/18 12:47 Baso # 0.1 K/mm3 (0.0-0.1) 12/02/18 12:47 Seg Neutrophils % 60.8 % (40.0-70.0) 12/02/18 12:47 Seg Neutrophils # 3.9 K/mm3 (1.8-7.7) 12/02/18 12:47 PT 12.1 Sec. (12.2-14.9) L 12/02/18 12:50 INR 0.85 (0.87-1.13) L 12/02/18 12:50 APTT 26.6 Sec. (24.2-36.6) 12/02/18 12:50 15.6 Sec. (15.1-19.6) 12/02/18 12:50 POC ABG pH 7.446 (7.35-7.45) 12/07/18 10:52 POC ABG pCO2 35.4 (35-45) 12/07/18 10:52 POC ABG pO2 85 (80-105) 12/07/18 10:52 POC ABG HCO3 24.4 (22-26 mml/L) 12/07/18 10:52 POC ABG Total CO2 25 (23-27mmol/L) 12/07/18 10:52 POC ABG O2 Sat 97 12/07/18 10:52 POC ABG Base Excess 0 ((-2) - (+3)mmol/L) 12/07/18 10:52 21 % 12/07/18 10:52 Sodium 138 mmol/L (137-145) 12/02/18 12:50 Potassium 3.7 mmol/L (3.6-5.0) 12/02/18 12:50 Chloride 102.3 mmol/L (98-107) 12/02/18 12:50 Carbon Dioxide 22 mmol/L (22-30) 12/02/18 12:50 17 mmol/L 12/02/18 12:50 BUN 7 mg/dL (7-17) 12/02/18 12:50 0.7 mg/dL (0.7-1.2) 12/02/18 12:50 Estimated GFR > 60 ml/min 12/02/18 12:50 10 % 12/02/18 12:50 Glucose 91 mg/dL (65-100) 12/02/18 12:50 POC Glucose 82 (70-105) 12/02/18 13:45 6.1 % (4-6) H 12/05/18 11:53 Calcium 9.3 mg/dL (8.4-10.2) 12/02/18 12:50 0.70 mg/dL (0.1-1.2) 12/02/18 12:50 AST 18 units/L (5-40) 12/02/18 12:50 ALT 27 units/L (7-56) 12/02/18 12:50 91 units/L (35-129) 12/02/18 12:50 147 units/L (30-135) H 12/02/18 12:50 < 0.010 ng/mL (0.00-0.029) 12/02/18 12:50 7.7 g/dL (6.3-8.2) 12/02/18 12:50 4.2 g/dL (3.9-5) 12/02/18 12:50 1.2 % 12/02/18 12:50 Triglycerides 96 mg/dL (2-149) 12/03/18 05:07 Cholesterol 161 mg/dL (50-199) 12/03/18 05:07 114 mg/dL (50-130) 12/03/18 05:07 36 mg/dL (40-59) L 12/03/18 05:07 4.47 % 12/03/18 05:07 TSH 1.870 mlU/mL (0.270-4.200) 12/05/18 11:53 HCG, Quant < 2 mIU/mL (0-4) 12/02/18 12:50 Active Medications - Current Medications Current Medications: Generic Name Dose Route Start Last Admin Trade Name Freq PRN Reason Stop Dose Admin Albuterol 2.5 mg 12/02/18 18:21 Proventil IH Q3HRT PRN Shortness Of Breath Amlodipine Besylate 5 mg 12/10/18 18:20 12/10/18 18:58 Norvasc PO 5 mg QDAY LINUS Administration Aspirin 325 mg 12/03/18 10:00 12/10/18 10:31 Aspirin PO 325 mg QDAY LINUS Administration Atorvastatin Calcium 40 mg 12/02/18 22:00 12/10/18 21:46 Lipitor PO 40 mg QHS LINUS Administration Bisacodyl 10 mg 12/02/18 18:21 Dulcolax [place] QDAY PRN Constipation Cyclobenzaprine HCl 5 mg 12/07/18 22:15 Flexeril PO Q8H PRN Muscle Spasm Diphenhydramine HCl 25 mg 12/04/18 05:23 12/08/18 21:27 Benadryl PO 25 mg Q8H PRN Administration Itching Ibuprofen 600 mg 12/04/18 10:29 12/10/18 18:58 Motrin PO 600 mg Q8H PRN Administration Pain, Mild (1-3) Labetalol HCl 10 mg 12/02/18 12:39 Normodyne IV Q5MIN PRN to maintain SBP < 180 Magnesium Hydroxide 30 ml 12/02/18 18:21 Milk Of Magnesia PO Q4H PRN Constipation Metoclopramide HCl 10 mg 12/02/18 18:21 Reglan PO Q6H PRN Nausea And Vomiting Nicotine 21 mg 12/09/18 13:00 12/10/18 10:31 Habitrol TD 21 mg QDAY LINUS Administration Ondansetron HCl 4 mg 12/02/18 18:21 Zofran IV Q8H PRN Nausea And Vomiting Promethazine HCl 25 mg 12/02/18 18:21 Phenergan [place] Q6H PRN Nausea And Vomiting Sodium Chloride 10 ml 12/02/18 18:21 12/08/18 21:27 Sodium Chloride Flush Syringe 10 Ml IV 10 ml PRN PRN Administration LINE FLUSH Nutrition/Malnutrition Assess - Dietary Evaluation Nutrition/Malnutrition Findings: Nutrition Notes Start: 12/04/18 09:42 Freq: Status: Active Protocol: Document 12/07/18 15:01 (Rec: 12/07/18 15:01 [id number]) Nutrition Notes Initial or Follow up Brief Note Subjective/Other Information Screened for skin risk. Mark 19 points. Nutrition Intervention Revisit per MD consult or patient Sign Off request:
--- NOTE | 2018-12-11 09:56 | Progress Note ---
Assessment and Plan CVA (cerebral vascular accident) s/p TPA Obesity bmi 35.5 Dyslipidemia Tobacco use disorder - Continue with secondary stroke prophylaxis, permissive hypertension - Weight loss and life style modifications discussed - VTE prophylaxis with lovenox added - Evaluation for IRU on going - PT/OT/MIX[employer] - advance diet per ST recommendations - Will need outpatient evaluation for sleep apnea, in view of obesity and acute CVA/HTN - Accucheck with glycemic control per SSI for target BG < 180 mg/dl - Bowel regimen - apparently smokes and abstinence has been strongly counseled - Supportive care - continue other care per attending / other consultants ... re-evaluate in am & prn Subjective Date of service: 12/11/18 Principal diagnosis: Acute CVA s/p TPA; Obesity; Dyslipidemia; Tobacco use disorder Interval history: Patient is seen today for: CVA (cerebral vascular accident) s/p TPA; Obesity bmi 35.5; Dyslipidemia; Tobacco use disorder Seen and examined at bedside; 24hour events reviewed; nursing and respiratory care staff consulted; no adverse overnight events reported to me; resting peacefully in bed; feels much better; denies acute chest pains or palpitations Objective Vital Signs - 12hr 12/10/18 12/11/18 22:34 05:37 Temperature 98.6 F 98.8 F Pulse Rate 93 H 88 Respiratory 20 20 Rate Blood Pressure 149/74 152/66 O2 Sat by Pulse 90 96 Oximetry Constitutional: no acute distress, alert, other (morbidly obese young AAF) Eyes: non-icteric ENT: oropharynx moist, other (Mallampati 3-4) Neck: supple, no lymphadenopathy Effort: normal Ascultation: Bilateral: clear, diminished breath sounds Percussion: Bilateral: not dull Cardiovascular: regular rate and rhythm Gastrointestinal: normoactive bowel sounds, soft, non-tender, non-distended Integumentary: normal, rash Extremities: no cyanosis, no edema, pink and warm, pulses normal, no ischemia or petechiae Neurologic: normal mental status, non-focal exam (grossly), pupils equal and round, CN II-XII normal, motor strength normal and Psychiatric: mood appropriate, affect normal CBC and BMP: 12/02/18 12:47 12/02/18 12:50 ABG, PT/INR, D-dimer: ABG POC ABG pH 7.446 (7.35-7.45) 12/07/18 10:52 POC ABG pCO2 35.4 (35-45) 12/07/18 10:52 POC ABG pO2 85 (80-105) 12/07/18 10:52 POC ABG HCO3 24.4 (22-26 mml/L) 12/07/18 10:52 POC ABG Total CO2 25 (23-27mmol/L) 12/07/18 10:52 POC ABG O2 Sat 97 12/07/18 10:52 PT/INR, D-dimer PT 12.1 Sec. (12.2-14.9) L 12/02/18 12:50 INR 0.85 (0.87-1.13) L 12/02/18 12:50 Abnormal lab findings: Abnormal Labs 12/02/18 12/02/18 12/02/18 12:47 12:50 12:50 RBC 5.54 H Hgb 16.3 H Hct 48.1 H PT 12.1 L INR 0.85 L Hemoglobin A1c Total Creatine Kinase 147 H HDL Cholesterol 12/03/18 12/05/18 05:07 11:53 RBC Hgb Hct PT INR Hemoglobin A1c 6.1 H Total Creatine Kinase HDL Cholesterol 36 L Allied health notes reviewed: nursing
[2018-12-11] MEDS: NORVASC PO SCH (10:18)
[2018-12-11] MEDS: ASPIRIN PO SCH (10:19)
[2018-12-11] MEDS: HABITROL TD SCH (10:19)
[2018-12-11] MEDS: IBUPROFEN PO PRN ×2 (10:23→23:03)
--- NOTE | 2018-12-12 09:57 | Progress Note ---
Assessment and Plan Assessment and plan: Acute ischemic stroke Patient received TPA in the emergency department. MRI/MRA negative. Echocardiogram reveals left ventricular chamber size normal with EF 50-55% and mild concentric left ventricular hypertrophy. PFO was not demonstrated. Carotid Dopplers negative. PT/OT. Obesity. Balanced diet, increased physical activity at discharge OHS/SORAYA. NIPPV as clinically indicated. supplemental oxygen, nebulizer therpay, pulse oximetry. HTN BP uncontrolled Increase Norvasc to 10mg Dyslipidemia. Continue statins. DVT prophylaxis. SCD to BLE while in bed, hold anticoagulation for 24 hours S/P TPA. Disposition. Physical therapy recommends acute rehabilitation. Tobacco use. Give Nicotine patch Fever of 100.5 due to vaccines 12/09 Now resooved Discussed with Case management. Working on transfer to Acute Rehab History Interval history: Left sided weakness Fever episode few days ago, after vaccines, resolved Hospitalist Physical - Physical exam Narrative exam: Gen: Not in acute distress, lying in bed, morbidly obese HEENT: Normocephalic, atraumatic Neck: supple, no JVD Heart: S1 and S2 reg, no murmurs, rubs or gallop Lungs: Clear, no crackles Abd: soft, non tender, non distended, normal BS Ext: No edema, no clubbing, no cyanosis, Neuro: Awake,alert, oriented x 3, left sided weakness - Constitutional Vitals: Temp Pulse Resp BP Pulse Ox 97.6 F 77 20 131/79 97 12/12/18 05:34 12/12/18 05:34 12/12/18 05:34 12/12/18 05:34 12/12/18 05:34 General appearance: Present: no acute distress, obese Results - Labs CBC & Chem 7: 12/02/18 12:47 12/02/18 12:50 Labs: Laboratory Last Values WBC 6.4 K/mm3 (4.5-11.0) 12/02/18 12:47 RBC 5.54 M/mm3 (3.65-5.03) H 12/02/18 12:47 Hgb 16.3 gm/dl (10.1-14.3) H 12/02/18 12:47 Hct 48.1 % (30.3-42.9) H 12/02/18 12:47 MCV 87 fl (79-97) 12/02/18 12:47 MCH 29 pg (28-32) 12/02/18 12:47 MCHC 34 % (30-34) 12/02/18 12:47 RDW 14.8 % (13.2-15.2) 12/02/18 12:47 Plt Count 226 K/mm3 (140-440) 12/02/18 12:47 Lymph % (Auto) 32.2 % (13.4-35.0) 12/02/18 12:47 [place] % (Auto) 5.0 % (0.0-7.3) 12/02/18 12:47 Eos % (Auto) 1.0 % (0.0-4.3) 12/02/18 12:47 Baso % (Auto) 1.0 % (0.0-1.8) 12/02/18 12:47 Lymph # 2.1 K/mm3 (1.2-5.4) 12/02/18 12:47 [place] # 0.3 K/mm3 (0.0-0.8) 12/02/18 12:47 Eos # 0.1 K/mm3 (0.0-0.4) 12/02/18 12:47 Baso # 0.1 K/mm3 (0.0-0.1) 12/02/18 12:47 Seg Neutrophils % 60.8 % (40.0-70.0) 12/02/18 12:47 Seg Neutrophils # 3.9 K/mm3 (1.8-7.7) 12/02/18 12:47 PT 12.1 Sec. (12.2-14.9) L 12/02/18 12:50 INR 0.85 (0.87-1.13) L 12/02/18 12:50 APTT 26.6 Sec. (24.2-36.6) 12/02/18 12:50 15.6 Sec. (15.1-19.6) 12/02/18 12:50 POC ABG pH 7.446 (7.35-7.45) 12/07/18 10:52 POC ABG pCO2 35.4 (35-45) 12/07/18 10:52 POC ABG pO2 85 (80-105) 12/07/18 10:52 POC ABG HCO3 24.4 (22-26 mml/L) 12/07/18 10:52 POC ABG Total CO2 25 (23-27mmol/L) 12/07/18 10:52 POC ABG O2 Sat 97 12/07/18 10:52 POC ABG Base Excess 0 ((-2) - (+3)mmol/L) 12/07/18 10:52 21 % 12/07/18 10:52 Sodium 138 mmol/L (137-145) 12/02/18 12:50 Potassium 3.7 mmol/L (3.6-5.0) 12/02/18 12:50 Chloride 102.3 mmol/L (98-107) 12/02/18 12:50 Carbon Dioxide 22 mmol/L (22-30) 12/02/18 12:50 17 mmol/L 12/02/18 12:50 BUN 7 mg/dL (7-17) 12/02/18 12:50 0.7 mg/dL (0.7-1.2) 12/02/18 12:50 Estimated GFR > 60 ml/min 12/02/18 12:50 10 % 12/02/18 12:50 Glucose 91 mg/dL (65-100) 12/02/18 12:50 POC Glucose 82 (70-105) 12/02/18 13:45 6.1 % (4-6) H 12/05/18 11:53 Calcium 9.3 mg/dL (8.4-10.2) 12/02/18 12:50 0.70 mg/dL (0.1-1.2) 12/02/18 12:50 AST 18 units/L (5-40) 12/02/18 12:50 ALT 27 units/L (7-56) 12/02/18 12:50 91 units/L (35-129) 12/02/18 12:50 147 units/L (30-135) H 12/02/18 12:50 < 0.010 ng/mL (0.00-0.029) 12/02/18 12:50 7.7 g/dL (6.3-8.2) 12/02/18 12:50 4.2 g/dL (3.9-5) 12/02/18 12:50 1.2 % 12/02/18 12:50 Triglycerides 96 mg/dL (2-149) 12/03/18 05:07 Cholesterol 161 mg/dL (50-199) 12/03/18 05:07 114 mg/dL (50-130) 12/03/18 05:07 36 mg/dL (40-59) L 12/03/18 05:07 4.47 % 12/03/18 05:07 TSH 1.870 mlU/mL (0.270-4.200) 12/05/18 11:53 HCG, Quant < 2 mIU/mL (0-4) 12/02/18 12:50 Active Medications - Current Medications Current Medications: Generic Name Dose Route Start Last Admin Trade Name Freq PRN Reason Stop Dose Admin Albuterol 2.5 mg 12/02/18 18:21 Proventil IH Q3HRT PRN Shortness Of Breath Amlodipine Besylate 10 mg 12/11/18 10:00 12/11/18 10:18 Norvasc PO 10 mg DAILY LINUS Administration Aspirin 325 mg 12/03/18 10:00 12/11/18 10:19 Aspirin PO 325 mg QDAY LINUS Administration Atorvastatin Calcium 40 mg 12/02/18 22:00 12/11/18 22:32 Lipitor PO 40 mg QHS LINUS Administration Bisacodyl 10 mg 12/02/18 18:21 Dulcolax [place] QDAY PRN Constipation Cyclobenzaprine HCl 5 mg 12/07/18 22:15 Flexeril PO Q8H PRN Muscle Spasm Diphenhydramine HCl 25 mg 12/04/18 05:23 12/08/18 21:27 Benadryl PO 25 mg Q8H PRN Administration Itching Ibuprofen 600 mg 12/04/18 10:29 12/11/18 23:03 Motrin PO 600 mg Q8H PRN Administration Pain, Mild (1-3) Labetalol HCl 10 mg 12/02/18 12:39 Normodyne IV Q5MIN PRN to maintain SBP < 180 Magnesium Hydroxide 30 ml 12/02/18 18:21 Milk Of Magnesia PO Q4H PRN Constipation Metoclopramide HCl 10 mg 12/02/18 18:21 Reglan PO Q6H PRN Nausea And Vomiting Nicotine 21 mg 12/09/18 13:00 12/11/18 10:19 Habitrol TD 21 mg QDAY LINUS Administration Ondansetron HCl 4 mg 05/02/19 18:21 Zofran IV Q8H PRN Nausea And Vomiting Promethazine HCl 25 mg 12/02/18 18:21 Phenergan [place] Q6H PRN Nausea And Vomiting Sodium Chloride 10 ml 12/02/18 18:21 12/08/18 21:27 Sodium Chloride Flush Syringe 10 Ml IV 10 ml PRN PRN Administration LINE FLUSH Nutrition/Malnutrition Assess - Dietary Evaluation Nutrition/Malnutrition Findings: Nutrition Notes Start: 12/04/18 09:42 Freq: Status: Active Protocol: Document 12/07/18 15:01 (Rec: 12/07/18 15:01 [id number]) Nutrition Notes Initial or Follow up Brief Note Subjective/Other Information Screened for skin risk. Mark 19 points. Nutrition Intervention Revisit per MD consult or patient Sign Off request:
[2018-12-12] MEDS: HABITROL TD SCH (10:51)
[2018-12-12] MEDS: ASPIRIN PO SCH (10:51)
[2018-12-12] MEDS: NORVASC PO SCH (10:51)
--- NOTE | 2018-12-12 12:18 | Progress Note ---
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 re-evaluate in am & prn Subjective Date of service: 12/12/18 Principal diagnosis: Acute CVA s/p TPA; Obesity; Dyslipidemia; Tobacco use disorder Interval history: Patient is seen today for: CVA (cerebral vascular accident) s/p TPA; Obesity bmi 35.5; Dyslipidemia; Tobacco use disorder Seen and examined at bedside; 24hour events reviewed; nursing and respiratory care staff consulted; no adverse overnight events reported to me; resting peacefully in bed; Objective Vital Signs - 12hr 12/12/18 12/12/18 05:34 10:51 Temperature 97.6 F Pulse Rate 77 Respiratory 20 Rate Blood Pressure 131/79 148/86 O2 Sat by Pulse 97 Oximetry Constitutional: no acute distress, alert, other (morbidly obese young AAF) Eyes: non-icteric ENT: oropharynx moist, other (Mallampati 3-4) Neck: supple, no lymphadenopathy Effort: normal Ascultation: Bilateral: clear, diminished breath sounds Percussion: Bilateral: not dull Cardiovascular: regular rate and rhythm Gastrointestinal: normoactive bowel sounds, soft, non-tender, non-distended Integumentary: normal, rash Extremities: no cyanosis, no edema, pink and warm, pulses normal, no ischemia or petechiae Neurologic: normal mental status, non-focal exam (grossly), pupils equal and round, CN II-XII normal, motor strength normal and Psychiatric: mood appropriate, affect normal CBC and BMP: 12/02/18 12:47 12/02/18 12:50 ABG, PT/INR, D-dimer: ABG POC ABG pH 7.446 (7.35-7.45) 12/07/18 10:52 POC ABG pCO2 35.4 (35-45) 12/07/18 10:52 POC ABG pO2 85 (80-105) 12/07/18 10:52 POC ABG HCO3 24.4 (22-26 mml/L) 12/07/18 10:52 POC ABG Total CO2 25 (23-27mmol/L) 12/07/18 10:52 POC ABG O2 Sat 97 12/07/18 10:52 PT/INR, D-dimer PT 12.1 Sec. (12.2-14.9) L 12/02/18 12:50 INR 0.85 (0.87-1.13) L 12/02/18 12:50 Abnormal lab findings: Abnormal Labs 12/02/18 12/02/18 12/02/18 12:47 12:50 12:50 RBC 5.54 H Hgb 16.3 H Hct 48.1 H PT 12.1 L INR 0.85 L Hemoglobin A1c Total Creatine Kinase 147 H HDL Cholesterol 12/03/18 12/05/18 05:07 11:53 RBC Hgb Hct PT INR Hemoglobin A1c 6.1 H Total Creatine Kinase HDL Cholesterol 36 L Allied health notes reviewed: nursing
[2018-12-12] MEDS: PEPCID PO SCH (13:13)
[2018-12-12] MEDS ORDERED: LOVENOX SUB-Q SCH (22:00)
--- NOTE | 2018-12-13 00:09 | Consultation ---
PULMONARY AND CRITICAL CARE EVALUATION NOTE CONSULTING PHYSICIAN: Dr. Loco. REASON FOR CONSULTATION: Acute cerebrovascular accident, status post TPA, need for ICU admission. CHIEF COMPLAINT AND HISTORY OF PRESENT ILLNESS: The patient is a 38-year-old -[place] female, morbidly obese, came into the Emergency Room after she experienced an acute onset of slurred speech, facial drooping and left-sided weakness. It began a couple of hours or so prior to presentation to the Emergency Room, Emergency Medical Services were notified. I believe she was talking with her mother on the phone when the symptoms happened. In the ER, she was found to indeed have these neurologic deficits. Code stroke was called. She was evaluated. She was qualified for TPA treatment and given a dose of TPA. She tolerated the procedure well with soon thereafter developing improvement in symptoms. We were consulted to admit to the Intensive Care Unit for further monitoring. She was initiated on a CVA protocol. When I stopped by to see her, she was resting in bed, still had pretty significant weakness in the left side, a little bit of a facial droop. She denied any chest pains, palpitations. She denied any new onset leg pain or swelling either unilaterally or bilaterally or any suggestion of a DVT. Denied a history of venous thromboembolic phenomenon. With regards to tobacco use or abuse, she denies any tobacco use or abuse whatsoever. This really is as much of the history of presentation as I have. PAST MEDICAL HISTORY: Morbid obesity. PAST SURGICAL HISTORY: She denied. MEDICATIONS: She was on at the time I stopped by to see were reviewed. Pertinent medications included the following: She was on Tylenol 650 mg p.o. q.4 hours p.r.n. mild pain or fevers, p.r.n. albuterol treatments q.4 hours p.r.n. shortness of breath, aspirin 325 mg p.o. daily, Lipitor 40 mg p.o. at bedtime, p.r.n. Dulcolax, labetalol 10 mg IV q.5 minutes p.r.n. systolic less than 180, Reglan 10 mg p.o. q.6 hours p.r.n. nausea and vomiting, Zofran 4 mg IV q.8 hours p.r.n. nausea and vomiting and p.r.n. promethazine. ALLERGIES: TO AMOXICILLIN, NATURE OF THE ALLERGY IS UNKNOWN. DIET: Morbidly obese, BMI of 49. Denies acute weight loss or gain in the preceding few weeks to months. FAMILY AND SOCIAL HISTORY: Lives in the community. Denies alcohol, tobacco, or illicit drug use or abuse. She is single. She has a family history of hypertension. REVIEW OF SYSTEMS: No overt loss of consciousness. No new onset seizures. She has the new onset focal weakness as described above. Denied gross hematochezia or melena. Denies gross hematuria or dysuria. No hematemesis. No hemoptysis, no palpitations. Denies heat or cold intolerance. Denies polydipsia or polyuria. Complete 13-system review of systems obtained. Pertinent positives and/or negatives as in body of history above, otherwise noncontributory. PHYSICAL EXAMINATION: VITAL SIGNS: At presentation in the Emergency Room, she was afebrile, the first temperature I could see her was 98.1, pulse at presentation was 87, respiratory rate of 18, blood pressure 173/102, oxygen sats were 95%, inspired oxygen concentration at that time was not recorded. However, when I stopped by to see her, O2 sats were 98% and that was on room air. GENERAL: Morbidly obese young -[place] female. Normocephalic. Atraumatic. Talking with me with slightly slurred speech, but with mildly increased respiratory effort at rest. HEAD, EYES, EARS, NOSE AND THROAT: She is anicteric. No conjunctival erythema. Oropharynx is moist. She has Mallampati #4 oropharynx. A large neck circumference. No gross jugular venous distention, no thyromegaly. Grossly, no palpable lymph nodes in the supraclavicular or submandibular lymph node chains. NECK: Supple with normal range of motion. LUNGS: Auscultation of both lung brown are unremarkable. Lungs are clear bilaterally. HEART: Heart sounds 1 and 2 are heard. They were regular in rate and rhythm at the time of my evaluation, without rubs or murmurs. ABDOMEN: Soft, full, bowel sounds are positive. It is protuberant, but not distended. No palpable hepatosplenomegaly. EXTREMITIES: Without overt digital clubbing or cyanosis. No pedal edema. Dorsalis pedis pulses are palpable and strong bilaterally. NEUROLOGIC: Pupils are equal, round, reactive to light and accommodation. Extraocular muscle movements appeared intact; however, she had a slight slow slurriness to her speech. She had left-sided weakness, arm weakness. Arm strength was about 3/5. Left lower extremity strength was about 3 to 4 over 5. Otherwise, no fasciculations. No spasticity. The skin was of normal turgor, without overt cellulitis or rash. PSYCHIATRIC: Mood was normal and affect was appropriate. She had intact judgment and insight when I saw her. LABORATORY DATA: From my review are as follows: Admission white cell count 6400, hemoglobin was 16.3, hematocrit 48.1, and platelet count was 226. No band forms. INR 0.84. Serum sodium was 138, potassium 3.7, chloride 102, bicarbonate 22, BUN 7, creatinine 0.7, and glucose was 91. Liver function tests are within normal limits. CPK was slightly elevated at 147. Troponin was within normal limits. LDL cholesterol was 114, HDL cholesterol was 36. TSH was 1.81. Urine test was negative. I do not have any microbiology studies. CT angiograms were done of the head and neck as well as a CT scan of her head. CT angiogram of the neck did not show any significant abnormality. CT angiogram of her head did not show any acute abnormality and a CT of her brain did not show any acute abnormality. A 2D echocardiogram had been done, results are pending. ASSESSMENT AND PLAN: 1. Acute cerebrovascular accident, status post TPA with good improvement in symptoms. 2. Morbid obesity, possible obstructive sleep apnea. 3. Hypertension, poorly controlled. PLAN: She will be admitted to the Critical Care Unit for close observation status post TPA. I have discussed secondary prevention records with her. I have discussed improving blood pressure control and better compliance. I have discussed weight loss with her. I have explained the concept of sleep apnea with her and advised that she does get outpatient followup. She will be monitored closely. She will receive GI prophylaxis and DVT prophylaxis post TPA once 24 hours is done. Flu and pneumonia vaccination will be addressed per protocol. Thank you very much for the consult. We will follow along. We will make further recommendations as picture progresses/becomes clearer. JOB# [id number] AJSumeet/NTS
--- NOTE | 2018-12-13 10:11 | Discharge Summary ---
Providers - Providers Date of Admission: 12/02/18 18:21 Date of discharge: 12/13/18 Attending physician: DMITRY ZAVALETA 12/02/18 Consult to Physician [CONS] Stat Comment: Consulting Provider: TOREY BENOIT Physician Instructions: Reason For Exam: suspected stroke 12/02/18 13:05 Consult to Physician [CONS] Urgent Comment: Dr. Mtz notified @ 14:16- [facility] Consulting Provider: TOSHA COLEMAN Physician Instructions: Reason For Exam: cva s/p tpa 12/02/18 13:38 Speech Therapy Evaluation and Treat [CONS] Stat Reason For Exam: drooled during swallow screen 12/02/18 18:21 Occupational Therapy Evaluate and Treat [CONS] Routine Comment: Reason For Exam: Neuro deficits Physical Therapy Evaluation and Treat [CONS] Routine Comment: Reason For Exam: Neuro deficits 12/02/18 18:34 Occupational Therapy Evaluate and Treat [CONS] Routine Comment: Reason For Exam: Neuro deficits 12/02/18 19:07 Consult to Physician [CONS] Routine Comment: Consulting Provider: CARROL YOUNG Physician Instructions: Reason For Exam: cva Hospitalization Condition: Fair Hospital course: Patient is 38 yo female with morbid obesity presented to ED for evaluation for acute onset of slurred speech , facial drooping, and left sided weakness. Patient was seen and evaluated in the emergency department and found to have symptoms of acute ischemic stroke, so was treated with TPA with improvement in symptoms. She was admitted to ICU, later transferred to med/surg floor. Patient was evaluated by Neurologist. Patient was also evaluated by physical therapy, occupational therapist and Speech pathologist. Acute rehabilitation placement was recommended. This was arranged and she was transferred to acute rehabilitation Unit on 12/07/2018. Total time spent on discharge, 31 minutes. Disposition: [id number] - Discharge Diagnoses (1) Acute ischemic stroke Status: Acute (2) Hypertension Status: Acute Qualifiers: Hypertension type: essential hypertension Qualified Code(s): I10 - Essential (primary) hypertension (3) Obesity hypoventilation syndrome Status: Acute (4) Hyperlipidemia Status: Acute Core Measure Documentation - Palliative Care Palliative Care/ Comfort Measures: Not Applicable - Core Measures Any of the following diagnoses?: stroke - Stroke Discharge Requirements Statin for LDL = or >70 mg/dl on DC: Yes Anticoag for atrial fib/atrial flutter: Not Applicable Antithrombotic for ischemic stroke: Yes Exam - Constitutional Vitals: Temp Pulse Resp BP Pulse Ox 98.4 F 82 20 147/78 98 12/13/18 05:48 12/13/18 05:48 12/13/18 05:48 12/13/18 05:48 12/13/18 05:48 Plan Activity: advance as tolerated Diet: low fat, low cholesterol, low salt
[2018-12-13] MEDS: HABITROL TD SCH (11:11)
[2018-12-13] MEDS: ASPIRIN PO SCH (11:12)
[2018-12-13] MEDS: NORVASC PO SCH (11:12)
[2018-12-13] MEDS: PEPCID PO SCH (11:13)
--- NOTE | 2018-12-13 19:33 | Progress Note ---
Assessment and Plan Patient alert, awake and Morbidly Obese resting on room air. O2 saturation 96%. Denies chest pain, shortness of breath or cough.No acute respiratory distress. - Patient Problems (1) Acute ischemic stroke Status: Acute Plan to address problem: Management as per neurology. (2) Hypertension Status: Acute Plan to address problem: Management as per primary care. (3) Obesity hypoventilation syndrome Status: Acute Plan to address problem: Recommend to loose weight Albuterol aerosol treatments q 6 hours. Sleep study as out patient. Subjective Date of service: 12/13/18 Principal diagnosis: Acute CVA s/p TPA; Obesity; Dyslipidemia; Tobacco use disorder Interval history: Patient alert, awake and Morbidly Obese resting on room air. O2 saturation 96%. Denies chest pain, shortness of breath or cough.No acute respiratory distress. Objective Vital Signs - 12hr 12/13/18 12/13/18 12/13/18 10:00 11:12 11:28 Temperature 98.5 F Pulse Rate 82 92 H Respiratory 18 20 Rate Blood Pressure 147/78 151/101 O2 Sat by Pulse 98 95 Oximetry 12/13/18 16:54 Temperature 98.3 F Pulse Rate 98 H Respiratory 20 Rate Blood Pressure 171/93 O2 Sat by Pulse 97 Oximetry Constitutional: no acute distress, alert, other (morbidly obese young AAF) Eyes: non-icteric ENT: oropharynx moist, other (Mallampati 3-4) Neck: supple, no lymphadenopathy Effort: normal Ascultation: Bilateral: diminished breath sounds Percussion: Bilateral: not dull Cardiovascular: regular rate and rhythm Gastrointestinal: normoactive bowel sounds, soft, non-tender, non-distended Integumentary: normal, rash Extremities: no cyanosis, no edema, pink and warm, pulses normal, no ischemia or petechiae Neurologic: normal mental status, non-focal exam (grossly), pupils equal and r ound, CN II-XII normal, motor strength normal and Psychiatric: mood appropriate, affect normal CBC and BMP: 12/02/18 12:47 12/02/18 12:50 ABG, PT/INR, D-dimer: ABG POC ABG pH 7.446 (7.35-7.45) 12/07/18 10:52 POC ABG pCO2 35.4 (35-45) 12/07/18 10:52 POC ABG pO2 85 (80-105) 12/07/18 10:52 POC ABG HCO3 24.4 (22-26 mml/L) 12/07/18 10:52 POC ABG Total CO2 25 (23-27mmol/L) 12/07/18 10:52 POC ABG O2 Sat 97 12/07/18 10:52 PT/INR, D-dimer PT 12.1 Sec. (12.2-14.9) L 12/02/18 12:50 INR 0.85 (0.87-1.13) L 12/02/18 12:50 Abnormal lab findings: Abnormal Labs 12/02/18 12/02/18 12/02/18 12:47 12:50 12:50 RBC 5.54 H Hgb 16.3 H Hct 48.1 H PT 12.1 L INR 0.85 L Hemoglobin A1c Total Creatine Kinase 147 H HDL Cholesterol 12/03/18 12/05/18 05:07 11:53 RBC Hgb Hct PT INR Hemoglobin A1c 6.1 H Total Creatine Kinase HDL Cholesterol 36 L Allied health notes reviewed: nursing
[2018-12-13 20:17] VITALS: BP 153/93
== END 2018-12-13 21:19 | DRG 62 ==
LOC: ED 12:35 → CC1 18:21 → 4A 12-03 14:31 → 3A 12-10 18:09
PROVIDERS: ADMIT Internal Medicine; ATTEND Internal Medicine
PROC: 3E03317 Introduction of Other Thrombolytic into Peripheral Vein, Percutaneous Approach (ICD-10-PCS; principal; 2018-12-02)
PROC: 4A033R1 Measurement of Arterial Saturation, Peripheral, Percutaneous Approach (ICD-10-PCS; 2018-12-07)
PROC: 3E0234Z Introduction of Serum, Toxoid and Vaccine into Muscle, Percutaneous Approach (ICD-10-PCS; 2018-12-09)
DX: I63.9 Cerebral infarction, unspecified (principal); E66.2 Morbid (severe) obesity with alveolar hypoventilation; G81.94 Hemiplegia, unspecified affecting left nondominant side; E78.5 Hyperlipidemia, unspecified; I10 Essential (primary) hypertension; R47.81 Slurred speech; R29.810 Facial weakness; F41.9 Anxiety disorder, unspecified; R47.01 Aphasia; F17.200 Nicotine dependence, unspecified, uncomplicated; Z23 Encounter for immunization; Z82.49 Family history of ischemic heart disease and other diseases of the circulatory system; Z88.1 Allergy status to other antibiotic agents; Z79.899 Other long term (current) drug therapy; R29.705 NIHSS score 5; Z68.35 Body mass index [BMI] 35.0-35.9, adult
CPT/HCPCS: 36415; 36600; 70450; 70496; 70498; 70544; 70551; 71046; 80053; 80061; 82550; 82553; 82803; 82962; 83036; 84443; 84484; 84702; 85025; 85610; 85670; 85730; 90686; 90732; 93005; 93010; 93306; 93880; 96374; 96375; 99406; G0378; A9270-GY; J1650; J2765; J2997; Q9967

== ENCOUNTER 2018-12-13 16:17 | Inpatient (IN) | payer OTHER ==
[2018-12-13] MEDS ORDERED: DULCOLAX PR PRN ×2 (16:33→18:20)
[2018-12-13] MEDS ORDERED: PROVENTIL IH PRN ×2 (16:33→18:27)
[2018-12-13] MEDS ORDERED: TYLENOL PO PRN ×2 (16:33→18:32)
[2018-12-14 04:27] LABS: Basophils % (Auto) 0.6 % (0.0-1.8); Eosinophils # (Auto) 0.1 K/mm3 (0.0-0.4); Eosinophils % (Auto) 0.9 % (0.0-4.3); Hemoglobin 15.3 gm/dl (10.1-14.3); Lymphocytes # (Auto) 1.9 K/mm3 (1.2-5.4); Lymphocytes % (Auto) 23.8 % (13.4-35.0); Mean Corpuscular HGB Conc 33 % (30-34); Mean Corpuscular Volume 87 fl (79-97); Monocytes # (Auto) 0.6 K/mm3 (0.0-0.8); Platelet Count 257 K/mm3 (140-440); Red Blood Count 5.28 M/mm3 (3.65-5.03); Red Cell Distribution Width 14.2 % (13.2-15.2)
[2018-12-14 04:43] LABS: Alanine Aminotransferase 23 units/L (7-56); Albumin 3.7 g/dL (3.9-5); BUN/Creatinine Ratio 15; Blood Urea Nitrogen 9 mg/dL (7-17); Calcium 9.3 mg/dL (8.4-10.2); Hemolysis Index 3
[2018-12-14] MEDS ORDERED: ECOTRIN PO SCH (08:00)
[2018-12-14] MEDS ORDERED: HABITROL TD SCH (08:00)
[2018-12-14] MEDS ORDERED: NORVASC PO SCH (08:00)
[2018-12-14] MEDS ORDERED: LOVENOX SUB-Q SCH (10:00)
--- NOTE | 2018-12-14 10:06 | History and Physical Report ---
History of Present Illness Date: 12/14/18 Date of admission: 12/13/18 16:27 Chief Complaint: CVA History of present illness: 38-year-old predominantly right-handed (ambidextrous) female with acute onset of slurred speech and facial droop and left-sided weakness presented to the ER and was worked up and found to have right sided CVA. She was given TPA with improvement in symptoms and transferred to the ICU. After she was stabilized she was transferred to the floor. Pulmonology was consulted for obesity hypoventilation syndrome and recommended an outpatient sleep study. Patient had vaccinations while inpatient and developed low-grade fevers which resolved. States that she recently started back smoking and has been started on nicotine patch. Smoking cessation was discussed with the patient and has also been ordered. Discussed at length with patient stroke prognosis and secondary stroke prevention. Patient also states that she's had increased anxiety since being in the hospital along with bouts of tearfulness and is agreeable to starting medication. Also states she's been constipated. Patient states that her mother has come in town and will be available to stay with her until she is able to return to her former function. She lives in a two-story house with her children. 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 After the patient was medic ally stabilized they were transferred for further rehabilitation. All available medical records have been reviewed. Plan of care was discussed with patient. Past History Past Medical History: other (obesity, asthma, rheumatoid arthritis) Past Surgical History: (x3), hernia repair, Other (IUD in place) Social history: single, lives with family, smoking, full code. denies: alcohol abuse, prescription drug abuse, IV drug use Family history: CAD, cancer, hypertension Medications and Allergies Allergies Allergy/AdvReac Type Severity Reaction Status Date / Time amoxicillin Allergy Mild Unknown Verified 12/02/18 13:06 Home Medications Medication Instructions Recorded Confirmed Last Taken Type Albuterol Sulfate [Albuterol 0.63% 0.63 mg IH DAILY 12/02/18 12/02/18 Unknown History NEBS] ALBUTEROL NEB's [Proventil 0.083% 2.5 mg IH Q3HRT PRN nebu 12/13/18 Unknown Rx NEBS] Aspirin [Aspirin TAB] 325 mg PO QDAY tablet 12/13/18 Unknown Rx AtorvaSTATin [Lipitor] 40 mg PO QHS tablet 12/13/18 Unknown Rx Cyclobenzaprine [Flexeril 10 MG 5 mg PO Q8H PRN tablet 12/13/18 Unknown Rx TAB] Enoxaparin [Lovenox] 40 mg SUB-Q QDAY@2200 syringe 12/13/18 Unknown Rx Famotidine [Pepcid] 20 mg PO QDAY tablet 12/13/18 Unknown Rx Ibuprofen [Motrin 600 MG tab] 600 mg PO Q8H PRN tablet 12/13/18 Unknown Rx Levalbuterol HCl [Xopenex] 0.63 mg IH Q4H PRN #1 vial.neb 12/13/18 Unknown Rx Magnesium Hydroxide [Milk of 30 ml PO Q4H PRN oral.liqd 12/13/18 Unknown Rx Magnesia] Metoclopramide [Reglan TAB] 10 mg PO Q6H PRN tablet 12/13/18 Unknown Rx Nicotine [Habitrol] 21 mg TD QDAY patch 12/13/18 Unknown Rx amLODIPine [Norvasc] 10 mg PO DAILY tablet 12/13/18 Unknown Rx diphenhydrAMINE [Benadryl CAP] 25 mg PO Q8H PRN capsule 12/13/18 Unknown Rx Active Meds: Active Medications Acetaminophen (Tylenol) 500 mg PO Q6H PRN PRN Reason: Pain, Mild (1-3) Last Admin: 12/14/18 06:26 Dose: 500 mg Documented by: Albuterol (Proventil) 2.5 mg IH Q4HRT PRN PRN Reason: Shortness Of Breath Amlodipine Besylate (Norvasc) 10 mg PO QDAY [facility] Aspirin (Ecotrin) 325 mg PO QDAY [facility] Atorvastatin Calcium (Lipitor) 40 mg PO QHS [facility] Bisacodyl (Dulcolax) 10 mg CO QDAY PRN PRN Reason: Constipation Enoxaparin Sodium (Lovenox) 40 mg SUB-Q QDAY [facility] Ibuprofen (Motrin) 600 mg PO BID PRN PRN Reason: Pain, Mild (1-3) Nicotine (Habitrol) 21 mg TD QDAY [facility] Review of Systems All systems: negative (ROS negative for 12 systems except as noted below with pertinent positives and negatives.) Cardiovascular: decreased exercise tolerance, no chest pain, no palpitations Respiratory: no cough, no cough with sputum Gastrointestinal: constipation, no nausea, no vomiting, no diarrhea Musculoskeletal: gait dysfunction Integumentary: hirsutism, no rash, no redness, no sores Neurological: numbness, tingling, lack of coordination, change in mentation, gait dysfunction, sensory deficit, paralysis Psychiatric: anxiety, depression Exam - Exam Narrative exam: MUSCULOSKELETAL SPECIALTY EXAM CONSTITUTIONAL: Well developed, well nourished, appropriately groomed, obese female. RIGHT hand dominant. LYMPHATIC: No appreciable abnormalities palpable in neck RESPIRATORY: Clear to auscultation bilaterally, no increased work of breathing CARDIOVASCULAR: Regular Rate/ Rhythm, no swelling, edema or tenderness in BUE or BLE. Pulses palpable in all extremities. All extremities warm. GI: + bowel sounds, soft, NTTP, nondistended, protuberant. INTEGUMENTARY: Normal, no lesion, rash, masses or bruising noted in extremities. MUSCULOSKELETAL: BUE and BLE normal without defect, crepitus, subluxation, effusion, arthritic changes (patient states history of RA but no definitive signs seen at this point) or TTP. SA EF WE EE FF FA HF KE ADF EHL APF R 5/5 5/5 5/5 5/5 5/5 5/5 5/5 5/5 5/5 5/5 5/5 L 2/5 2/5 3/5 2/5 3/5 3/5 2/5 2/5 2/5 2/5 2/5 ROM full on the right, decreased on the left Tone normal NEURO: CN II : Visual brown full to confrontation CN II, III : PERRL CN III, IV, : EOMI CN V : Facial sensation intact but altered on the left CN VII : Symmetric facial expressions and eye closure CN VIII : Hearing intact to finger rustle CN IX, X : Palate/uvula elevate midline, phonation normal CN XI : Intact shoulder shrug and head rotation CN XII : Tongue protrudes midline Sensation intact in all extremities without extinction but it is altered on the left compared to right. Reflexes 2+ bilaterally at biceps, brachioradialis and patella. No clonus at ankles. Coordination intact in RUE, decreased on left with decreased range of motion. No tremor noted in 4 extremities. Naming and repetition intact. Follows 2 step commands. Aphasia not appreciated. Patient states she had issues with reading last night when talking to her mother, have asked speech to assess. Dysarthria not appreciated Dysphagia not present Neglect not appreciated POSTURE and GAIT: Sitting posture good. Balance appears reasonable. Gait deferred until seen with therapy. PSYCH: Alert, orientated x3, affect appears euthymic. Insight appears intact. - Constitutional Vitals: Vital Signs - 12hr 12/13/18 12/14/18 12/14/18 22:20 05:02 07:47 Temperature 37.0 C 36.7 C Pulse Rate 96 H 97 H 81 Respiratory 20 20 Rate Blood Pressure 129/89 Blood Pressure 151/89 [Right] O2 Sat by Pulse 97 92 95 Oximetry 12/14/18 08:00 Temperature 36.6 C Pulse Rate 80 Respiratory 18 Rate Blood Pressure Blood Pressure 147/92 [Right] O2 Sat by Pulse Oximetry - Allied health notes FIMS assesment as documented by PT/OT/ST: Social interaction/Memory/Problem solving Social Interaction FIM Score 7. Complete [place] (Interacts appropriately. Controls temper.) Memory FIM Score 7. Complete [place] (Remembers people and routines.) Problem Solving FIM Score 7. Complete [place] (Solves complex problems. Self corrects.) - Labs CBC & Chem 7: 12/14/18 03:57 12/14/18 03:57 Labs: Laboratory Results - last 72 hr 12/14/18 12/14/18 03:57 03:57 WBC 7.8 RBC 5.28 H Hgb 15.3 H Hct 46.0 H MCV 87 MCH 29 MCHC 33 RDW 14.2 Plt Count 257 Lymph % (Auto) 23.8 [place] % (Auto) 8.0 H Eos % (Auto) 0.9 Baso % (Auto) 0.6 Lymph # 1.9 [place] # 0.6 Eos # 0.1 Baso # 0.0 Seg Neutrophils % 66.7 Seg Neutrophils # 5.2 Sodium 136 L Potassium 3.7 Chloride 98.3 Carbon Dioxide 24 Anion Gap 17 BUN 9 Creatinine 0.6 L Estimated GFR > 60 BUN/Creatinine Ratio 15 Glucose 101 H Calcium 9.3 Total Bilirubin 0.60 AST 15 ALT 23 Alkaline Phosphatase 104 Total Protein 7.4 Albumin 3.7 L Albumin/Globulin Ratio 1.0 Assessment and Plan Assessment and plan: Patient was assessed and evaluated for Acute Inpatient Rehab Unit. Due to the patients above-mentioned medical complexity, along with decreased functional mobility and self care, this patient continues to require and be appropriate for a comprehensive, multidisciplinary [id number] rehabilitation program. These needs cannot be met in an outpatient or other less intensive setting. The patient would continue to benefit from skilled therapy intervention for at least 3 hours per day, five days a week, with tech niques specific to the needs of the patient to improve function, activities of daily living, and reintegration into the community. The patient continues to require: -- OT to improve ROM, self-care, and learn use of adaptive equipment -- PT to improve strength and balance, functional transfers, and ambulation with energy conservation techniques to improve functional mobility -- SHIP WASHER to address cognitive deficits and swallowing ability -- 24 hour RN to ensure and prevent skin breakdown, promote progressive independence while ensuring safety, ensure education regarding medications, and incorporation of the rehabilitation at the bedside -- 24 hour Security Incident Response Specialist to coordinate this interdisciplinary program, and to manage/prevent complications as a result of the patients medical comorbidities. -Plan of care by day 4 -Weekly team conferences With such a program, there is a reasonable certainty that the goals individualized for this patient can be achieved within the specified length of stay. I69.354 CVA with hemiparesis affecting left nondominant side: TPA given. Continue secondary stroke prevention. Monitor for worsening post stroke depression. Monitor for worsening neurologic decline. Continue therapy as below. 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 We will need return of cognitive function prior to returning to her previous line of work. M06.9 RA unspecified: Patient states she was diagnosed with rheumatoid arthritis years ago, only takes ibuprofen for relief. K59.00 Constipation: Continue medications, adjust as needed. Monitor J45 Asthma: Continue nebulizers and inhalers as needed. O2 when necessary with monitoring by respiratory therapy. I10 hypertension: Continue medications, monitor blood pressure and adjust medications as needed for normotension. Z73.6 ADL dysfunction: OT will work on improving ability to perform ADLs (including assistive devices) to increase independence and decrease caregiver burden and improve functional transfers and mobility training. R26.2 Difficulty walking: PT will work on gait training and proper use of assistive devices and advance as appropriate to use of stairs and outside ambulation on uneven surfaces. R26.81 Unsteadiness on feet: PT will work on improving static and dynamic sitting and standing balance as well as proper use of assistive devices to decrease risk of falls. R26.89 Abnormality of gait: PT will work to improve safety and efficiency of gait through neuromotor training and gait training along with instruction on proper use of assistive devices. M62.81 Muscle weakness: PT & OT will work on strengthening exercises to improve functional strength including mixture of closed and open kinetic chain exercises. R53.81 Debility: PT & OT will work on improving overall functional status to improve participation with ADLs, mobility and social involvement. R53.83 Fatigue: PT & OT will work on improving endurance through aerobic exercises and therapeutic activity while monitoring patients tolerance for activity and vital signs as needed. DVT ppx: Lovenox Pain: Continue physical modalities in therapy and pain medications as needed to achieve functional pain control. Sleep: Monitor and address as needed. Bowel: Monitor and address as needed. Appetite: Monitor and address as needed. Discharge planning: Pending therapy progress and care plan meeting. Will continue discussion with therapy team, SW, patient and family. Restrictions/ Precautions: Falls WB status: FWB Functional Hx: ADLs: Independent Cognition: Independent Mobility: No AD Barriers to Discharge: Decreased mobility and ability to perform self care, balance deficits, weakness, discrete cognitive dysfunction Estimated Length of Stay: 14-21 days Discharge Destination: Home with family POST ADMISSION PHYSICIAN EVALUATION I have examined the patient and find that functional status, medical condition and appropriateness for IRF admission are essentially unchanged from those described in the preadmission screening with the exception of additional cognitive issues that were not noted on prior evaluations. I have discussed this with SHIP WASHER and they will evaluate the patient further for these cognitive impairments. Will monitor for worsening neurologic dysfunction, secondary stroke, shoulder-hand syndrome, increased tone on the hemiparetic side, cognitive changes, post stroke depression, DVT/PE, bowel and bladder complications and complications due to issues related to asthma or hypertension and electrolyte abnormalities. Will attempt to avoid occurrence of these issues or treat them if they present themselves.
[2018-12-14] MEDS: LEXAPRO PO SCH (10:54)
[2018-12-14] MEDS: NORVASC PO SCH (11:12)
[2018-12-14] MEDS: HABITROL TD SCH (11:12)
[2018-12-14] MEDS: ECOTRIN PO SCH (11:12)
[2018-12-14] MEDS: LOVENOX SUB-Q SCH (11:13)
[2018-12-14] MEDS: IBUPROFEN PO PRN (11:19)
[2018-12-15] MEDS: IBUPROFEN PO PRN (09:40)
[2018-12-15] MEDS: ECOTRIN PO SCH (09:41)
[2018-12-15] MEDS: LEXAPRO PO SCH (09:41)
[2018-12-15] MEDS: NORVASC PO SCH (09:42)
[2018-12-15] MEDS: HABITROL TD SCH (09:42)
[2018-12-15] MEDS: LOVENOX SUB-Q SCH (09:42)
[2018-12-16] MEDS: HABITROL TD SCH (08:09)
[2018-12-16] MEDS: LEXAPRO PO SCH (08:09)
[2018-12-16] MEDS: NORVASC PO SCH (08:09)
[2018-12-16] MEDS: ECOTRIN PO SCH (08:09)
[2018-12-16] MEDS: LOVENOX SUB-Q SCH (08:10)
[2018-12-16] MEDS: IBUPROFEN PO PRN ×2 (08:16→22:29)
--- NOTE | 2018-12-16 12:21 | Progress Note ---
Subjective Date of service: 12/16/18 Principal diagnosis: CVA Interval history: 38-year-old predominantly right-handed (ambidextrous) female with acute onset of slurred speech and facial droop and left-sided weakness presented to the ER and was worked up and found to have right sided CVA. She was given TPA with improvement in symptoms and transferred to the ICU. After she was stabilized she was transferred to the floor. Pulmonology was consulted for obesity hypoventilation syndrome and recommended an outpatient sleep study. Patient had vaccinations while inpatient and developed low-grade fevers which resolved. States that she recently started back smoking and has been started on nicotine patch. Smoking cessation was discussed with the patient and has also been ordered. Discussed at length with patient stroke prognosis and secondary stroke prevention. Patient also states that she's had increased anxiety since being in the hospital along with bouts of tearfulness and is agreeable to starting medication. Also states she's been constipated. Patient states that her mother has come in town and will be available to stay with her until she is able to return to her former function. She lives in a two-story house with her children. 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 After the patient was medically stabilized they were transferred for further rehabilitation. All alan ilable medical records have been reviewed. Plan of care was discussed with patient. Patient is participating in therapy and making reasonable progress. Taking rest breaks as needed. +BM. Strength in arm is improving. Patient states that she was not taking antihypertensives before even though they were prescribed. Was started back on amlodipine 5 mg which was then increased to 10 mg prior to admission to rehabilitation. Blood pressure over the past several days has been elevated on a consistent basis to the point that we need to restart additional medications. I restarted lisinopril low-dose and will continue to monitor for effect. Patient states she has used lisinopril in the past as well. Consult internal medicine for further management. Denies pain, palpitations, dyspnea, cough, N/V, or joint pain. All records, vitals, labs and medications were reviewed. No other issues per patient, nursing or therapy. Objective - Exam Narrative Exam: MUSCULOSKELETAL SPECIALTY EXAM CONSTITUTIONAL: Well developed, well nourished, appropriately groomed, obese female. RIGHT hand dominant. RESPIRATORY: Clear to auscultation bilaterally, no increased work of breathing CARDIOVASCULAR: Regular Rate/ Rhythm, no swelling, edema or tenderness in BUE or BLE. Pulses palpable in all extremities. All extremities warm. GI: + bowel sounds, soft, NTTP, nondistended, protuberant. INTEGUMENTARY: Normal, no lesion, rash, masses or bruising noted in extremities. MUSCULOSKELETAL: BUE and BLE normal without defect, crepitus, subluxation, effusion, arthritic changes (patient states history of RA but no definitive signs seen at this point) or TTP. SA EF WE EE FF FA HF KE ADF EHL APF R 12/05 12/05 12/05 12/05 12/05 12/05 12/05 12/05 12/05 12/05 12/05 L 09/07 09/07 10/05 09/07 10/05 10/05 09/07 09/07 09/07 09/07 09/07 ROM full on the right, decreased on the left Tone normal NEURO: Facial sensation intact but altered on the left, otherwise cranial nerves II through XII grossly intact Sensation intact in all extremities without extinction but it is altered on the left compared to right. No tremor noted in 4 extremities. Naming and repetition intact. Follows 2 step commands. Aphasia not appreciated. Dysarthria not appreciated Dysphagia not present Neglect not appreciated POSTURE and GAIT: Sitting posture good. Balance appears reasonable. Gait deferred until seen with therapy. PSYCH: Alert, orientated x3, affect appears euthymic. Insight appears intact. - Constitutional Vitals: Vital Signs - 12hr 12/16/18 12/16/18 12/16/18 04:40 07:37 08:09 Temperature 36.6 C 36.4 C Pulse Rate 84 87 87 Respiratory 20 18 Rate Blood Pressure 131/81 150/84 150/84 O2 Sat by Pulse 95 97 Oximetry 12/16/18 11:41 Temperature 36.6 C Pulse Rate 75 Respiratory 18 Rate Blood Pressure 179/114 O2 Sat by Pulse 94 Oximetry - Allied health notes Allied health notes reviewed: nursing, PT, ST, OT FIMS assessment as documented by PT/OT/ST: Grooming Patient cleans teeth/dentures: Yes Patient montemayor/brushes hair: Yes Patient washes, rinses and Yes dries face: Patient washes, rinses and Yes dries hands: Patient shaves: No Patient applies make-up: No Patient performs (no make-up/ 11/04 (100%) shaving): Patient performs (w/ make-up/ / (80%) shaving): Grooming FIM Score 4. Minimal Assistance (Patient = 75% or more. Needs touching.) Toileting Toileting Device Commode over Toilet Patient able to: Adjust clothes before,Clean self,Adjust clothes after Patient able to perform: 3/3 (100%) Toileting FIM Score 4. Minimal Assistance (Patient = 75% or more. Needs touching.) Social interaction/Memory/Problem solving Social Interaction FIM Score 7. Complete [place] (Interacts appropriately. Controls temper.) Memory FIM Score 7. Complete [place] (Remembers people and routines.) Problem Solving FIM Score 6. Mod. [place] (Mild difficulty or needs more time w/ complex.) Transfers Mode of Locomotion: Wheelchair Bed/Chair/Wheelchair Transfers 4. Minimal Assistance (Patient = 75% or more. FIM Score Needs touching.) Toilet Transfers FIM Score 5. Supervision (Needs supervision or cueing.) Patient transferred to: Shower Shower Transfers FIM Score 4. Minimal Assistance (Patient = 75% or more. Needs touching.) Locomotion- Stairs Device used on Stairs Handrail/s Number of Stairs Ascended/ 4 Descended Patient used handrail/support: Yes Stairs FIM Score 2. Maximal Assistance (Patient = 25% or more, 4- 6 stairs.) Locomotion- walk/wheelchair Most Frequent Mode of Wheelchair Locomotion: Ambulation Distance 20 Walking FIM Score 1. Total Assistance (Pt. < 25%, 2 or more person assist, or <50 ft.) Wheelchair Propulsion Distance 150 Wheelchair FIM Score 5. Supervision (Minimum 150 ft. supv./cues or 50 ft. independently.) Eating Eating FIM Score 5. Supervision/Set-Up (Needs help w/ container s, cutting meat, etc.) Dressing-Upper body Patient retrieves clothing Yes items: Patient applies/removes UE n/a prosthesis or orthosis: Upper Body Dressing FIM Score 5. Supv./Set-Up ([place] sets out clothes or applies pros./orth.) Dressing-lower body Patient retrieves clothing Yes items: Patient applies/removes LE n/a prosthesis or orthosis: Lower Body Dressing FIM Score 4. Minimal Assistance (Patient = 75% or more. Needs touching.) - Labs CBC & Chem 7: 12/14/18 03:57 12/14/18 03:57 Labs: Laboratory Results - last 72 hr 12/14/18 12/14/18 03:57 03:57 WBC 7.8 RBC 5.28 H Hgb 15.3 H Hct 46.0 H MCV 87 MCH 29 MCHC 33 RDW 14.2 Plt Count 257 Lymph % (Auto) 23.8 [place] % (Auto) 8.0 H Eos % (Auto) 0.9 Baso % (Auto) 0.6 Lymph # 1.9 [place] # 0.6 Eos # 0.1 Baso # 0.0 Seg Neutrophils % 66.7 Seg Neutrophils # 5.2 Sodium 136 L Potassium 3.7 Chloride 98.3 Carbon Dioxide 24 Anion Gap 17 BUN 9 Creatinine 0.6 L Estimated GFR > 60 BUN/Creatinine Ratio 15 Glucose 101 H Calcium 9.3 Total Bilirubin 0.60 AST 15 ALT 23 Alkaline Phosphatase 104 Total Protein 7.4 Albumin 3.7 L Albumin/Globulin Ratio 1.0 Assessment and Plan I69.354 CVA with hemiparesis affecting left nondominant side: TPA given. Continue secondary stroke prevention. Monitor for worsening post stroke depression. Monitor for worsening neurologic decline. Continue therapy as below. 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 We will need return of cognitive function prior to returning to her previous line of work. She is doing well from a cognitive standpoint as far as the tasks that we can provide her. She still feels like she is reading at a much slower pace than previous and this will be a factor with her line of work and volume of work. Speech is working to try and improve this and see if they can find any areas of deficits. M06.9 RA unspecified: Patient states she was diagnosed with rheumatoid arthritis years ago, only takes ibuprofen for relief. K59.00 Constipation: Continue medications, adjust as needed. Monitor J45 Asthma: Continue nebulizers and inhalers as needed. O2 when necessary with monitoring by respiratory therapy. I10 hypertension: Continue medications, monitor blood pressure and adjust medications as needed for normotension. Z73.6 ADL dysfunction: OT will work on improving ability to perform ADLs (including assistive devices) to increase independence and decrease caregiver burden and improve functional transfers and mobility training. R26.2 Difficulty walking: PT will work on gait training and proper use of assistive devices and advance as appropriate to use of stairs and outside ambulation on uneven surfaces. R26.81 Unsteadiness on feet: PT will work on improving static and dynamic sitting and standing balance as well as proper use of assistive devices to decrease risk of falls. R26.89 Abnormality of gait: PT will work to improve safety and efficiency of gait through neuromotor training and gait training along with instruction on proper use of assistive devices. M62.81 Muscle weakness: PT & OT will work on strengthening exercises to improve functional strength including mixture of closed and open kinetic chain exercises. R53.81 Debility: PT & OT will work on improving overall functional status to improve participation with ADLs, mobility and social involvement. R53.83 Fatigue: PT & OT will work on improving endurance through aerobic exercises and therapeutic activity while monitoring patients tolerance for activity and vital signs as needed. Internal medicine consult for hypertension management DVT ppx: Lovenox Pain: Continue physical modalities in therapy and pain medications as needed to achieve functional pain control. Sleep: Monitor and address as needed. Bowel: Monitor and address as needed. Appetite: Monitor and address as needed. Discharge planning: Pending therapy progress and care plan meeting. Will continue discussion with therapy team, SW, patient and family. Restrictions/ Precautions: Falls WB status: FWB Functional Hx: ADLs: Independent Cognition: Independent Mobility: No AD Barriers to Discharge: Decreased mobility and ability to perform self care, balance deficits, weakness, discrete cognitive dysfunction Estimated Length of Stay: 14-21 days Discharge Destination: Home with family
[2018-12-16] MEDS: ZESTRIL PO SCH (14:52)
--- NOTE | 2018-12-16 18:07 | Consultation ---
History of Present Illness - Reason for Consult Consult date: 12/16/18 Medical Management Requesting physician: ALEXANDRIA WIGGINS III - History of Present Illness 38 YO Female with RA, HTN, Nicotine Dependence, Obesity, CVA with RHP, Obesity Hypoventilation Syndrome admitted to IRU. Consult placed by Dr. Wiggins for Medical management of HTN. Pt seen and evaluated in her room. Pt resting comfortably in bed, and is in good spirits. Pt denies fever, chills, CP, Palpit ations, NVD, Skin rash, productive cough or recent ill contacts. Pt is participating in therapy. No reported nursing events. Past History Past Medical History: other (obesity, asthma, rheumatoid arthritis) Past Surgical History: (x3), hernia repair, Other (IUD in place) Social history: single, lives with family, smoking, full code. denies: alcohol abuse, prescription drug abuse, IV drug use Family history: CAD, cancer, hypertension Medications and Allergies Allergies Allergy/AdvReac Type Severity Reaction Status Date / Time amoxicillin Allergy Mild Unknown Verified 12/02/18 13:06 Home Medications Medication Instructions Recorded Confirmed Last Taken Type Albuterol Sulfate [Albuterol 0.63% 0.63 mg IH DAILY 12/02/18 12/02/18 Unknown History NEBS] ALBUTEROL NEB's [Proventil 0.083% 2.5 mg IH Q3HRT PRN nebu 12/13/18 Unknown Rx NEBS] Aspirin [Aspirin TAB] 325 mg PO QDAY tablet 12/13/18 Unknown Rx AtorvaSTATin [Lipitor] 40 mg PO QHS tablet 12/13/18 Unknown Rx Cyclobenzaprine [Flexeril 10 MG 5 mg PO Q8H PRN tablet 12/13/18 Unknown Rx TAB] Enoxaparin [Lovenox] 40 mg SUB-Q QDAY@2200 syringe 12/13/18 Unknown Rx Famotidine [Pepcid] 20 mg PO QDAY tablet 12/13/18 Unknown Rx Ibuprofen [Motrin 600 MG tab] 600 mg PO Q8H PRN tablet 12/13/18 Unknown Rx Levalbuterol HCl [Xopenex] 0.63 mg IH Q4H PRN #1 vial.neb 12/13/18 Unknown Rx Magnesium Hydroxide [Milk of 30 ml PO Q4H PRN oral.liqd 12/13/18 Unknown Rx Magnesia] Metoclopramide [Reglan TAB] 10 mg PO Q6H PRN tablet 12/13/18 Unknown Rx Nicotine [Habitrol] 21 mg TD QDAY patch 12/13/18 Unknown Rx amLODIPine [Norvasc] 10 mg PO DAILY tablet 12/13/18 Unknown Rx diphenhydrAMINE [Benadryl CAP] 25 mg PO Q8H PRN capsule 12/13/18 Unknown Rx Active Meds: Active Medications Acetaminophen (Tylenol) 500 mg PO Q6H PRN PRN Reason: Pain, Mild (1-3) Last Admin: 12/14/18 06:26 Dose: 500 mg Documented by: Albuterol (Proventil) 2.5 mg IH Q4HRT PRN PRN Reason: Shortness Of Breath Amlodipine Besylate (Norvasc) 10 mg PO QDAY [facility] Last Admin: 12/16/18 08:09 Dose: 10 mg Documented by: Aspirin (Ecotrin) 325 mg PO QDAY [facility] Last Admin: 12/16/18 08:09 Dose: 325 mg Documented by: Atorvastatin Calcium (Lipitor) 40 mg PO QHS [facility] Last Admin: 12/15/18 21:29 Dose: 40 mg Documented by: Bisacodyl (Dulcolax) 10 mg ME QDAY PRN PRN Reason: Constipation Enoxaparin Sodium (Lovenox) 40 mg SUB-Q QDAY [facility] Last Admin: 12/16/18 08:10 Dose: 40 mg Documented by: Escitalopram Oxalate (Lexapro) 10 mg PO QDAY [facility] Last Admin: 12/16/18 08:09 Dose: 10 mg Documented by: Ibuprofen (Motrin) 600 mg PO BID PRN PRN Reason: Pain, Mild (1-3) Last Admin: 12/16/18 08:16 Dose: 600 mg Documented by: Lisinopril (Zestril) 10 mg PO QDAY [facility] Last Admin: 12/16/18 14:52 Dose: 10 mg Documented by: Nicotine (Habitrol) 21 mg TD QDAY [facility] Last Admin: 12/16/18 08:09 Dose: 21 mg Documented by: Review of Systems Constitutional: no weight loss, no weight gain, no fever, no chills Ears, nose, mouth and throat: no ear pain, no ear discharge, no nose pain Breasts: no change in shape, no swelling, no mass Cardiovascular: no chest pain, no orthopnea, no palpitations Respiratory: no cough, no excessive sputum, no hemoptysis, no dyspnea on exertion Gastrointestinal: no nausea, no vomiting, no diarrhea, no change in bowel habits, no hematemesis Genitourinary Female: no dyspareunia, no pelvic pain, no dysuria, no urinary frequency, no urgency Rectal: no pain, no incontinence, no bleeding Musculoskeletal: no neck stiffness, no neck pain, no shooting arm pain, no low back pain, no shooting leg pain Integumentary: no rash, no pruritis, no redness, no wounds, no jaundice Neurological: no transient paralysis, no paralysis, no weakness, no parathesias, no seizures, no syncope Psychiatric: no anxiety, no memory loss, no sleep disturbances, no insomnia, no hypersomnia, no change in appetite, no change in libido Endocrine: no cold intolerance, no heat intolerance, no polydipsia, no polyuria, no excessive sweating Hematologic/Lymphatic: no easy bruising, no easy bleeding, no lymphadenopathy Allergic/Immunologic: no urticaria, no allergic rhinitis, no wheezing, no persistent infections, no anaphylaxis, no angioedema Exam - Constitutional Vitals: Temp Pulse Resp BP Pulse Ox 97.7 F 86 18 144/85 97 12/16/18 16:12 12/16/18 16:12 12/16/18 16:12 12/16/18 16:12 12/16/18 16:12 General appearance: Present: mild distress - EENT Eyes: Present: PERRL ENT: hearing intact, clear oral mucosa - Neck Neck: Present: supple, normal ROM - Respiratory Respiratory effort: normal Respiratory: bilateral: CTA - Cardiovascular Heart Sounds: Present: S1 & S2. Absent: rub, click - Extremities Extremities: pulses symmetrical, No edema Peripheral Pulses: within normal limits - Abdominal General gastrointestinal: Present: soft, non-tender, non-distended, normal bowel sounds Female genitourinary: Present: normal - Integumentary Integumentary: Present: clear, warm, dry - Musculoskeletal Musculoskeletal: gait normal, strength equal bilaterally - Psychiatric Psychiatric: appropriate mood/affect, intact judgment & insight - Neurologic Neurologic: CNII-XII intact, moves all extremities Results - Labs CBC & Chem 7: 12/14/18 03:57 12/14/18 03:57 Assessment and Plan - Patient Problems (1) Hypertension Current Visit: No Status: Acute Qualifiers: Hypertension type: essential hypertension Qualified Code(s): I10 - Essential (primary) hypertension Plan to address problem: Monitor BP q shift, continue medical management, low sodium diet, supportive care, continue Terry Inhibitor, and calcium channel nargis, (2) Obesity hypoventilation syndrome Current Visit: No Status: Acute Plan to address problem: Supplemental oxygen, pulmlonary toilet, early ambulation, incentive spirometry, balanced diet, increased physical activity at discharge, Outpatient bariatric surgery consult.
--- NOTE | 2018-12-16 19:20 | IRU Plan of Care ---
Interdisciplinary Plan of Care - IP IRU INTERDISCIPLINARY PLAN: [facility] Inpatient Rehab Unit Plan of Care IRU Interdisciplinary Care Plan Start: 12/13/18 23:43 Freq: Admission then PRN Status: Active Protocol: Document 12/16/18 14:08 TH (Rec: 12/16/18 14:11 TH [id number]) Interdisciplinary Problem List Interdisciplinary Problem List Interdisciplinary Problem List Impaired Bathing/Grooming, Query Text:Answers will Trigger Problems Impaired Dressing,Impaired and Outcomes on Worklist. Mobility,Impaired Transfers, Impaired Toileting,Impaired Comprehension,Impaired Expression,Pain Management, Knowledge Deficits,Discharge Concerns,Impaired Safety IRU Interdisciplinary Care Plan Therapy Services Therapy Services Will Include: Physical Therapy,Occupational Query Text:Patient will be seen for a Therapy,Speech Therapy minimum of 3 hours of daily therapy 5 out of 7 days a week. Therapy intensity may be adjusted within a 7 consecutive day period to effectively serve the individual needs of the patient. Treatment Frequency/Intensity/Duration Treatment Frequency 3 hours/day Treatment Intensity 5 days per week Treatment Duration 10-14 days Problem Area: Eating/Swallowing Eating/Swallowing Outcomes Eating/Swallowing Interventions Problem Area: Bathing/Grooming Bathing/Grooming Outcomes Improve [place] w/ Grooming,Improve [place] w/ Bathing Bathing/Grooming Interventions ADL Training,Use of Assistive Devices,Therapeutic Exercise, Therapeutic Activity, Neuromuscular Re-Education, Balance Work,Activity Tolerance Work,Patient/ Caregiver Education Problem Area: Dressing Dressing Outcomes Improve [place] w/ UB Dressing,Improve [place] w/ LB Dressing Dressing Interventions ADL Training,Use of Assistive Devices,Neuromuscular Re- Education,Therapeutic Exercise ,Balance Work,Modalities, Patient/Caregiver Education Problem Area: Mobility Mobility Outcomes Improve [place] w/ Bed Mobility,Improve [place] w/ Ambulation,Improve [place] w/ Stairs/Curb, Improve [place] w/ Wheelchair Mobility Interventions Therapeutic Exercise, Neuromuscular Re-Ed.,Activity Tolerance Work,Modalities,Use of Assistive Devices,Patient/ Caregiver Education,Bed Mobility Work,Gait Training,W/ C Mobility Work Problem Area: Transfers Transfers Outcomes Improve [place] w/ Bed Transfers,Improve [place] w/ Car Transfers Transfers Interventions Transfer Training,Therapeutic Exercise,Neuromuscular Re- Education,Modalities,Use of Assistive Devices,Patient/ Caregiver Education Problem Area: Bowel/Bladder Managment Bowel/Bladder Outcomes Bowel/Bladder Interventions Problem Area: Toileting Toileting Outcomes Improve [place] w/ Toileting Toileting Interventions ADL Training,Balance Work,Use of Assistive Devices,Patient/ Caregiver Education Problem Area: Nutrition Nutrition Outcomes Nutrition Interventions Problem Area: Comprehension Comprehension Outcomes Comprehension Interventions Problem Area: Expression Expression Outcomes Expression Interventions Problem Area: Problem Solving Problem Solving Outcomes Problem Solving Interventions Problem Area: Memory Memory Outcomes Memory Interventions Problem Area: Pain Management Pain Management Outcomes Pain Management Interventions Problem Area: Knowledge Deficits Knowledge Deficits Outcomes Knowledge Deficits Interventions Problem Area: Skin/Tissue Integrity Skin/Tissue Integrity Outcomes Skin/Tissue Integrity Interventions Problem Area: Social Interaction Social Interaction Outcomes Social Interaction Interventions Problem Area: Adjustment to Disability Adjustment to Disability Outcomes Adjustment to Disability Interventions Problem Area: Discharge Concerns Discharge Concerns Outcomes Discharge w/ Necessary Equipment,Have Home Health/ Outpatient Services Discharge Concerns Interventions Discharge Planning,Family/ Caregiver Conference,Family/ Caregiver Training Problem Area: Community Reintegration Community Reintegration Outcomes Community Reintegration Interventions Problem Area: Home Management Home Management Outcomes Improve [place] w/ Home Management Home Management Interventions Clothing Care,Activity Tolerance Work,Patient/ Caregiver Education Problem Area: Safety Safety Outcomes Provide Safe Environment, Perform Selfcare Safely, Demonstrate Good Safety w/ Transfers/Mobility Safety Interventions Identify Fall Risk,[place] Pt. 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 HTN and obesity are main medical issues. Rehabilitation potential is good, tPA was utilized and she has already had a reasonable amount of return of function. Potential (Completed by Physician) This plan of care has been developed based on the findings from the pre- admission assessment, post admission physician evaluation, information gathered from the assessments from all therapy disciplines and other pertinent clin icians. The plan of care has been reviewed and discussed in collaboration with the interdisciplinary team. The plan of care will be reviewed and updated at least weekly.
[2018-12-17] MEDS: NORVASC PO SCH (09:00)
[2018-12-17] MEDS: LOVENOX SUB-Q SCH (09:00)
[2018-12-17] MEDS: LEXAPRO PO SCH (09:00)
[2018-12-17] MEDS: HABITROL TD SCH (09:00)
[2018-12-17] MEDS: ZESTRIL PO SCH (09:00)
[2018-12-17] MEDS: ECOTRIN PO SCH (09:00)
--- NOTE | 2018-12-17 11:51 | Progress Note ---
Assessment and Plan Assessment and plan: - History of Present Illness 38 YO Female with RA, HTN, Nicotine Dependence, Obesity, CVA with RHP, Obesity Hypoventilation Syndrome admitted to IRU. Consult placed by Dr. Leigh for Medical management of HTN. P Past History Past Medical History: other (obesity, asthma, rheumatoid arthritis) (1) Hypertension optimize bp meds obesity counseled about preventative health for 17 mins History Interval history: Review of systems Constitutional: No fevers, no malaise, no joint pains CVS: No chest pain, no orthopnea, no pedal edema GI: No abdominal pain, no diarrhea, no vomiting, no constipation Respiratory: No shortness of breath, no wheezing, no coughing Hospitalist Physical - Physical exam Narrative exam: General.: Appears well, no distress, nontoxic HEENT: Moist mucous membranes, extraocular muscles intact, no lymphadenopathy Neck: supple Cardiac: S1-S2 heard Lungs: clear to auscultation bilaterally Abdomen: soft , nontender, nondistended, bowel sounds positive Extremities: no edema clubbing or cyanosis Skin: no rash or lesions Neurologic: left sided weakness Psych: calm, and cooperative - Constitutional Vitals: Temp Pulse Resp BP Pulse Ox 97.6 F 80 18 133/84 98 12/17/18 08:00 12/17/18 08:00 12/17/18 05:06 12/17/18 08:00 12/17/18 07:29 General appearance: Present: mild distress Results - Labs CBC & Chem 7: 12/14/18 03:57 12/14/18 03:57 Labs: Laboratory Last Values WBC 7.8 K/mm3 (4.5-11.0) 12/14/18 03:57 RBC 5.28 M/mm3 (3.65-5.03) H 12/14/18 03:57 Hgb 15.3 gm/dl (10.1-14.3) H 12/14/18 03:57 Hct 46.0 % (30.3-42.9) H 12/14/18 03:57 MCV 87 fl (79-97) 12/14/18 03:57 MCH 29 pg (28-32) 12/14/18 03:57 MCHC 33 % (30-34) 12/14/18 03:57 RDW 14.2 % (13.2-15.2) 12/14/18 03:57 Plt Count 257 K/mm3 (140-440) 12/14/18 03:57 Lymph % (Auto) 23.8 % (13.4-35.0) 12/14/18 03:57 [place] % (Auto) 8.0 % (0.0-7.3) H 12/14/18 03:57 Eos % (Auto) 0.9 % (0.0-4.3) 12/14/18 03:57 Baso % (Auto) 0.6 % (0.0-1.8) 12/14/18 03:57 Lymph # 1.9 K/mm3 (1.2-5.4) 12/14/18 03:57 [place] # 0.6 K/mm3 (0.0-0.8) 12/14/18 03:57 Eos # 0.1 K/mm3 (0.0-0.4) 12/14/18 03:57 Baso # 0.0 K/mm3 (0.0-0.1) 12/14/18 03:57 Seg Neutrophils % 66.7 % (40.0-70.0) 12/14/18 03:57 Seg Neutrophils # 5.2 K/mm3 (1.8-7.7) 12/14/18 03:57 Sodium 136 mmol/L (137-145) L 12/14/18 03:57 Potassium 3.7 mmol/L (3.6-5.0) 12/14/18 03:57 Chloride 98.3 mmol/L (98-107) 12/14/18 03:57 Carbon Dioxide 24 mmol/L (22-30) 12/14/18 03:57 17 mmol/L 12/14/18 03:57 BUN 9 mg/dL (7-17) 12/14/18 03:57 0.6 mg/dL (0.7-1.2) L 12/14/18 03:57 Estimated GFR > 60 ml/min 12/14/18 03:57 15 % 12/14/18 03:57 Glucose 101 mg/dL (65-100) H 12/14/18 03:57 Calcium 9.3 mg/dL (8.4-10.2) 12/14/18 03:57 0.60 mg/dL (0.1-1.2) 12/14/18 03:57 AST 15 units/L (5-40) 12/14/18 03:57 ALT 23 units/L (7-56) 12/14/18 03:57 104 units/L (35-129) 12/14/18 03:57 7.4 g/dL (6.3-8.2) 12/14/18 03:57 3.7 g/dL (3.9-5) L 12/14/18 03:57 1.0 % 12/14/18 03:57 Active Medications - Current Medications Current Medications: Generic Name Dose Route Start Last Admin Trade Name Freq PRN Reason Stop Dose Admin Acetaminophen 500 mg 12/13/18 18:32 12/14/18 06:26 Tylenol PO 500 mg Q6H PRN Administration Pain, Mild (1-3) Albuterol 2.5 mg 12/13/18 18:27 Proventil IH Q4HRT PRN Shortness Of Breath Amlodipine Besylate 10 mg 12/14/18 08:00 12/17/18 09:00 Norvasc PO 10 mg QDAY [facility] Administration Aspirin 325 mg 12/14/18 08:00 12/17/18 09:00 Ecotrin PO 325 mg QDAY [facility] Administration Atorvastatin Calcium 40 mg 12/13/18 22:00 12/16/18 22:24 Lipitor PO 40 mg QHS [facility] Administration Bisacodyl 10 mg 12/13/18 18:20 Dulcolax OR QDAY PRN Constipation Enoxaparin Sodium 40 mg 12/14/18 08:00 12/17/18 09:00 Lovenox SUB-Q 40 mg QDAY [facility] Administration Escitalopram Oxalate 10 mg 12/14/18 12:00 12/17/18 09:00 Lexapro PO 10 mg QDAY [facility] Administration Ibuprofen 600 mg 12/14/18 11:00 12/16/18 22:29 Motrin PO 600 mg BID PRN Administration Pain, Mild (1-3) Lisinopril 10 mg 12/16/18 13:00 12/17/18 09:00 Zestril PO 10 mg QDAY [facility] Administration Nicotine 21 mg 12/14/18 08:00 12/17/18 09:00 Habitrol TD 21 mg QDAY [facility] Administration
[2018-12-17] MEDS: IBUPROFEN PO PRN (21:09)
--- NOTE | 2018-12-18 08:46 | Progress Note ---
Subjective Date of service: 12/18/18 Principal diagnosis: CVA Interval history: 38-year-old predominantly right-handed (ambidextrous) female with acute onset of slurred speech and facial droop and left-sided weakness presented to the ER and was worked up and found to have right sided CVA. She was given TPA with improvement in symptoms and transferred to the ICU. After she was stabilized she was transferred to the floor. Pulmonology was consulted for obesity hypoventilation syndrome and recommended an outpatient sleep study. Patient had vaccinations while inpatient and developed low-grade fevers which resolved. States that she recently started back smoking and has been started on nicotine patch. Smoking cessation was discussed with the patient and has also been ordered. Discussed at length with patient stroke prognosis and secondary stroke prevention. Patient also states that she's had increased anxiety since being in the hospital along with bouts of tearfulness and is agreeable to starting medication. Also states she's been constipated. Patient states that her mother has come in town and will be available to stay with her until she is able to return to her former function. She lives in a two-story house with her children. 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 After the patient was medically stabilized they were transferred for further rehabilitation. All alan ilable medical records have been reviewed. Plan of care was discussed with patient. Patient is participating in therapy and making reasonable progress. Taking rest breaks as needed. +BM. Strength in arm is improving. Blood pressure doing better overall. Appreciate hospitalist assistance with monitoring and adjusting medications. Patient stating that she has pain today in the low chest/upper abdominal region. Not tender to palpation, no radiation, not consistent with cardiac but also not fully consistent with dyspepsia. However given rest of her symptoms we'll trial PPI to see if it improves. Advised her to let nursing now if it worsens R continues after the PPI started and we will get up EKG to rule out any cardiac issues. Denies pain, palpitations, dyspnea, cough, N/V, or julio césar nt pain. All records, vitals, labs and medications were reviewed. No other issues per patient, nursing or therapy. Objective - Exam Narrative Exam: MUSCULOSKELETAL SPECIALTY EXAM CONSTITUTIONAL: Well developed, well nourished, appropriately groomed, obese female. RIGHT hand dominant. RESPIRATORY: Clear to auscultation bilaterally, no increased work of breathing CARDIOVASCULAR: Regular Rate/ Rhythm, no swelling, edema or tenderness in BUE or BLE. All extremities warm. GI: + bowel sounds, soft, NTTP, nondistended, protuberant. INTEGUMENTARY: Normal, no lesion, rash, masses or bruising noted in extremities. MUSCULOSKELETAL: BUE and BLE normal without defect, crepitus, subluxation, effusion, arthritic changes (patient states history of RA but no definitive signs seen at this point) or TTP. SA EF WE EE FF FA HF KE ADF EHL APF R 12/05 12/05 12/05 12/05 12/05 12/05 12/05 12/05 12/05 12/05 12/05 L 10/05 10/05 10/05 10/05 10/05 10/05 10/05 10/05 10/05 10/05 10/05 ROM full on the right, decreased on the left Tone normal NEURO: Facial sensation intact but altered on the left, otherwise cranial nerves II through XII grossly intact Sensation intact in all extremities without extinction but it is altered on the left compared to right. No tremor noted in 4 extremities. Naming and repetition intact. Follows 2 step commands. Aphasia not appreciated. Dysarthria not appreciated Dysphagia not present Neglect not appreciated POSTURE and GAIT: Sitting posture good. Balance appears reasonable. Gait deferred until seen with therapy. PSYCH: Alert, orientated x3, affect appears euthymic. Insight appears intact. - Constitutional Vitals: Vital Signs - 12hr 12/17/18 12/17/18 12/17/18 21:09 23:14 23:25 Temperature 36.6 C Pulse Rate 79 84 Respiratory 17 Rate Blood Pressure 119/60 [Right] O2 Sat by Pulse 97 Oximetry 12/17/18 12/18/18 23:27 07:35 Temperature 36.7 C Pulse Rate 78 Respiratory 18 18 Rate Blood Pressure 106/48 [Right] O2 Sat by Pulse 98 97 Oximetry - Allied health notes Allied health notes reviewed: nursing, PT, ST, OT FIMS assessment as documented by PT/OT/ST: Grooming Patient cleans teeth/dentures: Yes Patient montemayor/brushes hair: Yes Patient washes, rinses and Yes dries face: Patient washes, rinses and Yes dries hands: Patient shaves: No Patient applies make-up: No Patient performs (no make-up/ 11/04 (100%) shaving): Patient performs (w/ make-up/ /5 (80%) shaving): Grooming FIM Score 5. Supervision ([place] applies toothpaste or opens containers.) Toileting Toileting Device Commode over Toilet Patient able to: Adjust clothes before,Clean self,Adjust clothes after Patient able to perform: 3/3 (100%) Toileting FIM Score 4. Minimal Assistance (Patient = 75% or more. Needs touching.) Social interaction/Memory/Problem solving Social Interaction FIM Score 5. Supervision (Needs supv. <10%. Needs encouragement to participate.) Memory FIM Score 5. Supervision (Needs cueing <10%, stressful/ unfamiliar situations.) Problem Solving FIM Score 5. Supervision (Needs cueing <10% to solve routine problems.) Transfers Mode of Locomotion: Wheelchair Bed/Chair/Wheelchair Transfers 5. Supervision (Needs supv. or set-up for FIM Score sliding board, foot rests.) Toilet Transfers FIM Score 5. Supervision (Needs supervision or cueing.) Patient transferred to: Shower Shower Transfers FIM Score 4. Minimal Assistance (Patient = 75% or more. Needs touching.) Locomotion- Stairs Device used on Stairs Handrail/s Number of Stairs Ascended/ 4 Descended Patient used handrail/support: Yes Stairs FIM Score 2. Maximal Assistance (Patient = 25% or more, 4- 6 stairs.) Locomotion- walk/wheelchair Most Frequent Mode of Wheelchair Locomotion: Ambulation Distance 20 Walking FIM Score 1. Total Assistance (Pt. < 25%, 2 or more person assist, or <50 ft.) Wheelchair Propulsion Distance 300 Wheelchair FIM Score 6. Modified [place] (Wheels a minimum of 150 ft.) Eating Eating FIM Score 6. Modified [place] (Special consistency or uses device.) Dressing-Upper body Patient retrieves clothing Yes items: Patient applies/removes UE n/a prosthesis or orthosis: Upper Body Dressing FIM Score 5. Supv./Set-Up ([place] sets out clothes or applies pros./orth.) Dressing-lower body Patient retrieves clothing Yes items: Patient applies/removes LE n/a prosthesis or orthosis: Lower Body Dressing FIM Score 5. Supv./Set-Up ([place] sets out clothes or applies pros./orth.) - Labs CBC & Chem 7: 12/21/18 05:16 12/21/18 05:16 Assessment and Plan I69.354 CVA with hemiparesis affecting left nondominant side: TPA given. Continue secondary stroke prevention. Monitor for worsening post stroke depression. Monitor for worsening neurologic decline. Continue therapy as below. I69.815 Cognitive deficits after CVA: JIRA DEVELOPER to eval and treat for discrete cognitive dysfunction. We will need return of cognitive function prior to returning to her previous line of work. She is doing well from a cognitive standpoint as far as the tasks that we can provide her. She still feels like s he is reading at a much slower pace than previous and this will be a factor with her line of work and volume of work. Speech is working to try and improve this and see if they can find any areas of deficits. M06.9 RA unspecified: Patient states she was diagnosed with rheumatoid arthritis years ago, only takes ibuprofen for relief. K59.00 Constipation: Continue medications, adjust as needed. Monitor J45 Asthma: Continue nebulizers and inhalers as needed. O2 when necessary with monitoring by respiratory therapy. I10 hypertension: Continue medications, monitor blood pressure and adjust medications as needed for normotension. Z73.6 ADL dysfunction: OT will work on improving ability to perform ADLs (including assistive devices) to increase independence and decrease caregiver burden and improve functional transfers and mobility training. R26.2 Difficulty walking: PT will work on gait training and proper use of assistive devices and advance as appropriate to use of stairs and outside ambul ation on uneven surfaces. R26.81 Unsteadiness on feet: PT will work on improving static and dynamic sitting and standing balance as well as proper use of assistive devices to decrease risk of falls. R26.89 Abnormality of gait: PT will work to improve safety and efficiency of gait through neuromotor training and gait training along with instruction on proper use of assistive devices. M62.81 Muscle weakness: PT & OT will work on strengthening exercises to improve functional strength including mixture of closed and open kinetic chain exercises. R53.81 Debility: PT & OT will work on improving overall functional status to improve participation with ADLs, mobility and social involvement. R53.83 Fatigue: PT & OT will work on improving endurance through aerobic exercises and therapeutic activity while monitoring patients tolerance for activity and vital signs as needed. Likely dyspepsia: Start PPI monitor for improvement Internal medicine consult for hypertension management DVT ppx: Lovenox Pain: Continue physical modalities in therapy and pain medications as needed to achieve functional pain control. Sleep: Monitor and address as needed. Bowel: Monitor and address as needed. Appetite: Monitor and address as needed. Discharge planning: Pending therapy progress and care plan meeting. Will continue discussion with therapy team, SW, patient and family. Restrictions/ Precautions: Falls WB status: FWB Functional Hx: ADLs: Independent Cognition: Independent Mobility: No AD Barriers to Discharge: Decreased mobility and ability to perform self care, balance deficits, weakness, discrete cognitive dysfunction Estimated Length of Stay: 14-21 days Discharge Destination: Home with family
[2018-12-18] MEDS: PROTONIX PO SCH (11:00)
[2018-12-18] MEDS: ECOTRIN PO SCH (11:01)
[2018-12-18] MEDS: LEXAPRO PO SCH (11:01)
[2018-12-18] MEDS: ZESTRIL PO SCH ×2 (11:02→11:11)
[2018-12-18] MEDS: LOVENOX SUB-Q SCH (11:02)
[2018-12-18] MEDS: HABITROL TD SCH (11:03)
[2018-12-18] MEDS: NORVASC PO SCH (11:03)
--- NOTE | 2018-12-18 12:44 | Progress Note ---
Assessment and Plan Assessment and plan: - History of Present Illness 38 YO Female with RA, HTN, Nicotine Dependence, Obesity, CVA with RHP, Obesity Hypoventilation Syndrome admitted to IRU. Consult placed by Dr. Leigh for Medical management of HTN. P Past History Past Medical History: other (obesity, asthma, rheumatoid arthritis) (1) Hypertension optimize bp meds obesity counseled about preventative health for 17 mins History Interval history: Review of systems Constitutional: No fevers, no malaise, no joint pains CVS: No chest pain, no orthopnea, no pedal edema GI: No abdominal pain, no diarrhea, no vomiting, no constipation Respiratory: No shortness of breath, no wheezing, no coughing Hospitalist Physical - Physical exam Narrative exam: General.: Appears well, no distress, nontoxic HEENT: Moist mucous membranes, extraocular muscles intact, no lymphadenopathy Neck: supple Cardiac: S1-S2 heard Lungs: clear to auscultation bilaterally Abdomen: soft , nontender, nondistended, bowel sounds positive Extremities: no edema clubbing or cyanosis Skin: no rash or lesions Neurologic: left sided weakness Psych: calm, and cooperative - Constitutional Vitals: Temp Pulse Resp BP Pulse Ox 98.3 F 76 18 118/63 97 12/18/18 11:05 12/18/18 11:11 12/18/18 11:05 12/18/18 11:11 12/18/18 11:05 General appearance: Present: mild distress Results - Labs CBC & Chem 7: 12/14/18 03:57 12/14/18 03:57 Labs: Laboratory Last Values WBC 7.8 K/mm3 (4.5-11.0) 12/14/18 03:57 RBC 5.28 M/mm3 (3.65-5.03) H 12/14/18 03:57 Hgb 15.3 gm/dl (10.1-14.3) H 12/14/18 03:57 Hct 46.0 % (30.3-42.9) H 12/14/18 03:57 MCV 87 fl (79-97) 12/14/18 03:57 MCH 29 pg (28-32) 12/14/18 03:57 MCHC 33 % (30-34) 12/14/18 03:57 RDW 14.2 % (13.2-15.2) 12/14/18 03:57 Plt Count 257 K/mm3 (140-440) 12/14/18 03:57 Lymph % (Auto) 23.8 % (13.4-35.0) 12/14/18 03:57 [place] % (Auto) 8.0 % (0.0-7.3) H 12/14/18 03:57 Eos % (Auto) 0.9 % (0.0-4.3) 12/14/18 03:57 Baso % (Auto) 0.6 % (0.0-1.8) 12/14/18 03:57 Lymph # 1.9 K/mm3 (1.2-5.4) 12/14/18 03:57 [place] # 0.6 K/mm3 (0.0-0.8) 12/14/18 03:57 Eos # 0.1 K/mm3 (0.0-0.4) 12/14/18 03:57 Baso # 0.0 K/mm3 (0.0-0.1) 12/14/18 03:57 Seg Neutrophils % 66.7 % (40.0-70.0) 12/14/18 03:57 Seg Neutrophils # 5.2 K/mm3 (1.8-7.7) 12/14/18 03:57 Sodium 136 mmol/L (137-145) L 12/14/18 03:57 Potassium 3.7 mmol/L (3.6-5.0) 12/14/18 03:57 Chloride 98.3 mmol/L (98-107) 12/14/18 03:57 Carbon Dioxide 24 mmol/L (22-30) 12/14/18 03:57 17 mmol/L 12/14/18 03:57 BUN 9 mg/dL (7-17) 12/14/18 03:57 0.6 mg/dL (0.7-1.2) L 12/14/18 03:57 Estimated GFR > 60 ml/min 12/14/18 03:57 15 % 12/14/18 03:57 Glucose 101 mg/dL (65-100) H 12/14/18 03:57 Calcium 9.3 mg/dL (8.4-10.2) 12/14/18 03:57 0.60 mg/dL (0.1-1.2) 12/14/18 03:57 AST 15 units/L (5-40) 12/14/18 03:57 ALT 23 units/L (7-56) 12/14/18 03:57 104 units/L (35-129) 12/14/18 03:57 7.4 g/dL (6.3-8.2) 12/14/18 03:57 3.7 g/dL (3.9-5) L 12/14/18 03:57 1.0 % 12/14/18 03:57 Active Medications - Current Medications Current Medications: Generic Name Dose Route Start Last Admin Trade Name Freq PRN Reason Stop Dose Admin Acetaminophen 500 mg 12/13/18 18:32 12/14/18 06:26 Tylenol PO 500 mg Q6H PRN Administration Pain, Mild (1-3) Albuterol 2.5 mg 12/13/18 18:27 Proventil IH Q4HRT PRN Shortness Of Breath Amlodipine Besylate 10 mg 12/14/18 08:00 12/18/18 11:03 Norvasc PO 10 mg QDAY LINUS Administration Aspirin 325 mg 12/14/18 08:00 12/18/18 11:01 Ecotrin PO 325 mg QDAY LINUS Administration Atorvastatin Calcium 40 mg 12/13/18 22:00 12/17/18 21:10 Lipitor PO 40 mg QHS LINUS Administration Bisacodyl 10 mg 12/13/18 18:20 Dulcolax [place] QDAY PRN Constipation Enoxaparin Sodium 40 mg 12/14/18 08:00 12/18/18 11:02 Lovenox SUB-Q 40 mg QDAY LINUS Administration Escitalopram Oxalate 10 mg 12/14/18 12:00 12/18/18 11:01 Lexapro PO 10 mg QDAY LINUS Administration Ibuprofen 600 mg 12/14/18 11:00 12/17/18 21:09 Motrin PO 600 mg BID PRN Administration Pain, Mild (1-3) Lisinopril 10 mg 12/16/18 13:00 12/18/18 11:11 Zestril PO Not Given QDAY LINUS Nicotine 21 mg 12/14/18 08:00 12/18/18 11:03 Habitrol TD Not Given QDAY LINUS Pantoprazole Sodium 20 mg 12/18/18 10:00 12/18/18 11:00 Protonix PO 20 mg QDAY LINUS Administration
[2018-12-18] MEDS: IBUPROFEN PO PRN (18:10)
[2018-12-19] MEDS: NORVASC PO SCH (09:41)
[2018-12-19] MEDS: LOVENOX SUB-Q SCH (09:41)
[2018-12-19] MEDS: LEXAPRO PO SCH (09:41)
[2018-12-19] MEDS: PROTONIX PO SCH (09:41)
[2018-12-19] MEDS: ECOTRIN PO SCH (09:42)
[2018-12-19] MEDS: HABITROL TD SCH (09:42)
--- NOTE | 2018-12-19 14:08 | Progress Note ---
Assessment and Plan Assessment and plan: - History of Present Illness 38 YO Female with RA, HTN, Nicotine Dependence, Obesity, CVA with RHP, Obesity Hypoventilation Syndrome admitted to IRU. Consult placed by Dr. Leigh for Medical management of HTN. P Past History Past Medical History: other (obesity, asthma, rheumatoid arthritis) (1) Hypertension optimize bp meds obesity counseled about preventative health for 17 mins History Interval history: Review of systems Constitutional: No fevers, no malaise, no joint pains CVS: No chest pain, no orthopnea, no pedal edema GI: No abdominal pain, no diarrhea, no vomiting, no constipation Respiratory: No shortness of breath, no wheezing, no coughing Hospitalist Physical - Physical exam Narrative exam: General.: Appears well, no distress, nontoxic HEENT: Moist mucous membranes, extraocular muscles intact, no lymphadenopathy Neck: supple Cardiac: S1-S2 heard Lungs: clear to auscultation bilaterally Abdomen: soft , nontender, nondistended, bowel sounds positive Extremities: no edema clubbing or cyanosis Skin: no rash or lesions Neurologic: left sided weakness Psych: calm, and cooperative - Constitutional Vitals: Temp Pulse Resp BP Pulse Ox 97.6 F 72 18 125/63 97 12/19/18 12:00 12/19/18 12:00 12/19/18 12:00 12/19/18 12:00 12/19/18 07:15 General appearance: Present: mild distress Results - Labs CBC & Chem 7: 12/14/18 03:57 12/14/18 03:57 Labs: Laboratory Last Values WBC 7.8 K/mm3 (4.5-11.0) 12/14/18 03:57 RBC 5.28 M/mm3 (3.65-5.03) H 12/14/18 03:57 Hgb 15.3 gm/dl (10.1-14.3) H 12/14/18 03:57 Hct 46.0 % (30.3-42.9) H 12/14/18 03:57 MCV 87 fl (79-97) 12/14/18 03:57 MCH 29 pg (28-32) 12/14/18 03:57 MCHC 33 % (30-34) 12/14/18 03:57 RDW 14.2 % (13.2-15.2) 12/14/18 03:57 Plt Count 257 K/mm3 (140-440) 12/14/18 03:57 Lymph % (Auto) 23.8 % (13.4-35.0) 12/14/18 03:57 [place] % (Auto) 8.0 % (0.0-7.3) H 12/14/18 03:57 Eos % (Auto) 0.9 % (0.0-4.3) 12/14/18 03:57 Baso % (Auto) 0.6 % (0.0-1.8) 12/14/18 03:57 Lymph # 1.9 K/mm3 (1.2-5.4) 12/14/18 03:57 [place] # 0.6 K/mm3 (0.0-0.8) 12/14/18 03:57 Eos # 0.1 K/mm3 (0.0-0.4) 12/14/18 03:57 Baso # 0.0 K/mm3 (0.0-0.1) 12/14/18 03:57 Seg Neutrophils % 66.7 % (40.0-70.0) 12/14/18 03:57 Seg Neutrophils # 5.2 K/mm3 (1.8-7.7) 12/14/18 03:57 Sodium 136 mmol/L (137-145) L 12/14/18 03:57 Potassium 3.7 mmol/L (3.6-5.0) 12/14/18 03:57 Chloride 98.3 mmol/L (98-107) 12/14/18 03:57 Carbon Dioxide 24 mmol/L (22-30) 12/14/18 03:57 17 mmol/L 12/14/18 03:57 BUN 9 mg/dL (7-17) 12/14/18 03:57 0.6 mg/dL (0.7-1.2) L 12/14/18 03:57 Estimated GFR > 60 ml/min 12/14/18 03:57 15 % 12/14/18 03:57 Glucose 101 mg/dL (65-100) H 12/14/18 03:57 Calcium 9.3 mg/dL (8.4-10.2) 12/14/18 03:57 0.60 mg/dL (0.1-1.2) 12/14/18 03:57 AST 15 units/L (5-40) 12/14/18 03:57 ALT 23 units/L (7-56) 12/14/18 03:57 104 units/L (35-129) 12/14/18 03:57 7.4 g/dL (6.3-8.2) 12/14/18 03:57 3.7 g/dL (3.9-5) L 12/14/18 03:57 1.0 % 12/14/18 03:57 Active Medications - Current Medications Current Medications: Generic Name Dose Route Start Last Admin Trade Name Freq PRN Reason Stop Dose Admin Acetaminophen 500 mg 12/13/18 18:32 12/14/18 06:26 Tylenol PO 500 mg Q6H PRN Administration Pain, Mild (1-3) Albuterol 2.5 mg 12/13/18 18:27 Proventil IH Q4HRT PRN Shortness Of Breath Amlodipine Besylate 10 mg 12/14/18 08:00 12/19/18 09:41 Norvasc PO 10 mg QDAY LINUS Administration Aspirin 325 mg 12/14/18 08:00 12/19/18 09:42 Ecotrin PO 325 mg QDAY LINUS Administration Atorvastatin Calcium 40 mg 12/13/18 22:00 12/18/18 22:43 Lipitor PO 40 mg QHS LINUS Administration Bisacodyl 10 mg 12/13/18 18:20 Dulcolax [place] QDAY PRN Constipation Enoxaparin Sodium 40 mg 12/14/18 08:00 12/19/18 09:41 Lovenox SUB-Q 40 mg QDAY LINUS Administration Escitalopram Oxalate 10 mg 12/14/18 12:00 12/19/18 09:41 Lexapro PO 10 mg QDAY LINUS Administration Ibuprofen 600 mg 12/14/18 11:00 12/18/18 18:10 Motrin PO 600 mg BID PRN Administration Pain, Mild (1-3) Nicotine 21 mg 12/14/18 08:00 12/19/18 09:42 Habitrol TD Not Given QDAY LINUS Pantoprazole Sodium 20 mg 12/18/18 10:00 12/19/18 09:41 Protonix PO 20 mg QDAY LINUS Administration
[2018-12-19] MEDS: ZESTRIL PO SCH (22:25)
--- NOTE | 2018-12-20 07:53 | Progress Note ---
Assessment and Plan Assessment and plan: - History of Present Illness 38 YO Female with RA, HTN, Nicotine Dependence, Obesity, CVA with RHP, Obesity Hypoventilation Syndrome admitted to IRU. Consult placed by Dr. Leigh for Medical management of HTN. P Past History Past Medical History: other (obesity, asthma, rheumatoid arthritis) (1) Hypertension optimize bp meds obesity counseled about preventative health for 17 mins History Interval history: Review of systems Constitutional: No fevers, no malaise, no joint pains CVS: No chest pain, no orthopnea, no pedal edema GI: No abdominal pain, no diarrhea, no vomiting, no constipation Respiratory: No shortness of breath, no wheezing, no coughing Hospitalist Physical - Physical exam Narrative exam: General.: Appears well, no distress, nontoxic HEENT: Moist mucous membranes, extraocular muscles intact, no lymphadenopathy Neck: supple Cardiac: S1-S2 heard Lungs: clear to auscultation bilaterally Abdomen: soft , nontender, nondistended, bowel sounds positive Extremities: no edema clubbing or cyanosis Skin: no rash or lesions Neurologic: left sided weakness Psych: calm, and cooperative - Constitutional Vitals: Temp Pulse Resp BP Pulse Ox 97.8 F 80 18 130/77 96 12/20/18 07:43 12/20/18 07:43 12/20/18 07:43 12/20/18 07:43 12/20/18 07:43 General appearance: Present: mild distress Results - Labs CBC & Chem 7: 12/14/18 03:57 12/14/18 03:57 Labs: Laboratory Last Values WBC 7.8 K/mm3 (4.5-11.0) 12/14/18 03:57 RBC 5.28 M/mm3 (3.65-5.03) H 12/14/18 03:57 Hgb 15.3 gm/dl (10.1-14.3) H 12/14/18 03:57 Hct 46.0 % (30.3-42.9) H 12/14/18 03:57 MCV 87 fl (79-97) 12/14/18 03:57 MCH 29 pg (28-32) 12/14/18 03:57 MCHC 33 % (30-34) 12/14/18 03:57 RDW 14.2 % (13.2-15.2) 12/14/18 03:57 Plt Count 257 K/mm3 (140-440) 12/14/18 03:57 Lymph % (Auto) 23.8 % (13.4-35.0) 12/14/18 03:57 [place] % (Auto) 8.0 % (0.0-7.3) H 12/14/18 03:57 Eos % (Auto) 0.9 % (0.0-4.3) 12/14/18 03:57 Baso % (Auto) 0.6 % (0.0-1.8) 12/14/18 03:57 Lymph # 1.9 K/mm3 (1.2-5.4) 12/14/18 03:57 [place] # 0.6 K/mm3 (0.0-0.8) 12/14/18 03:57 Eos # 0.1 K/mm3 (0.0-0.4) 12/14/18 03:57 Baso # 0.0 K/mm3 (0.0-0.1) 12/14/18 03:57 Seg Neutrophils % 66.7 % (40.0-70.0) 12/14/18 03:57 Seg Neutrophils # 5.2 K/mm3 (1.8-7.7) 12/14/18 03:57 Sodium 136 mmol/L (137-145) L 12/14/18 03:57 Potassium 3.7 mmol/L (3.6-5.0) 12/14/18 03:57 Chloride 98.3 mmol/L (98-107) 12/14/18 03:57 Carbon Dioxide 24 mmol/L (22-30) 12/14/18 03:57 17 mmol/L 12/14/18 03:57 BUN 9 mg/dL (7-17) 12/14/18 03:57 0.6 mg/dL (0.7-1.2) L 12/14/18 03:57 Estimated GFR > 60 ml/min 12/14/18 03:57 15 % 12/14/18 03:57 Glucose 101 mg/dL (65-100) H 12/14/18 03:57 Calcium 9.3 mg/dL (8.4-10.2) 12/14/18 03:57 0.60 mg/dL (0.1-1.2) 12/14/18 03:57 AST 15 units/L (5-40) 12/14/18 03:57 ALT 23 units/L (7-56) 12/14/18 03:57 104 units/L (35-129) 12/14/18 03:57 7.4 g/dL (6.3-8.2) 12/14/18 03:57 3.7 g/dL (3.9-5) L 12/14/18 03:57 1.0 % 12/14/18 03:57 Active Medications - Current Medications Current Medications: Generic Name Dose Route Start Last Admin Trade Name Freq PRN Reason Stop Dose Admin Acetaminophen 500 mg 12/13/18 18:32 12/14/18 06:26 Tylenol PO 500 mg Q6H PRN Administration Pain, Mild (1-3) Albuterol 2.5 mg 12/13/18 18:27 Proventil IH Q4HRT PRN Shortness Of Breath Amlodipine Besylate 10 mg 12/14/18 08:00 12/19/18 09:41 Norvasc PO 10 mg QDAY LINUS Administration Aspirin 325 mg 12/14/18 08:00 12/19/18 09:42 Ecotrin PO 325 mg QDAY LINUS Administration Atorvastatin Calcium 40 mg 12/13/18 22:00 12/19/18 22:24 Lipitor PO 40 mg QHS LINUS Administration Bisacodyl 10 mg 12/13/18 18:20 Dulcolax [place] QDAY PRN Constipation Enoxaparin Sodium 40 mg 12/14/18 08:00 12/19/18 09:41 Lovenox SUB-Q 40 mg QDAY LINUS Administration Escitalopram Oxalate 10 mg 12/14/18 12:00 12/19/18 09:41 Lexapro PO 10 mg QDAY LINUS Administration Ibuprofen 600 mg 12/14/18 11:00 12/18/18 18:10 Motrin PO 600 mg BID PRN Administration Pain, Mild (1-3) Lisinopril 10 mg 12/19/18 15:00 12/19/18 22:25 Zestril PO 10 mg QDAY LINUS Administration Nicotine 21 mg 12/14/18 08:00 12/19/18 09:42 Habitrol TD Not Given QDAY LINUS Pantoprazole Sodium 20 mg 12/18/18 10:00 12/19/18 09:41 Protonix PO 20 mg QDAY LINUS Administration
[2018-12-20] MEDS: LOVENOX SUB-Q SCH (09:30)
[2018-12-20] MEDS: ECOTRIN PO SCH (09:30)
[2018-12-20] MEDS: ZESTRIL PO SCH (09:30)
[2018-12-20] MEDS: PROTONIX PO SCH (09:31)
[2018-12-20] MEDS: NORVASC PO SCH (09:31)
[2018-12-20] MEDS: LEXAPRO PO SCH (09:31)
[2018-12-20] MEDS: HABITROL TD SCH (09:40)
[2018-12-20] MEDS: IBUPROFEN PO PRN (15:55)
[2018-12-21 05:53] LABS: Basophils # (Auto) 0.1 K/mm3 (0.0-0.1); Basophils % (Auto) 1.1 % (0.0-1.8); Eosinophils # (Auto) 0.1 K/mm3 (0.0-0.4); Eosinophils % (Auto) 1.3 % (0.0-4.3); Hematocrit 42.6 % (30.3-42.9); Hemoglobin 14.4 gm/dl (10.1-14.3); Lymphocytes # (Auto) 2.2 K/mm3 (1.2-5.4); Lymphocytes % (Auto) 32.1 % (13.4-35.0); Mean Corpuscular HGB Conc 34 % (30-34); Mean Corpuscular Volume 87 fl (79-97); Monocytes # (Auto) 0.6 K/mm3 (0.0-0.8); Monocytes % (Auto) 8.8 % (0.0-7.3); Platelet Count 261 K/mm3 (140-440); Red Blood Count 4.92 M/mm3 (3.65-5.03); Red Cell Distribution Width 13.8 % (13.2-15.2)
[2018-12-21 06:18] LABS: BUN/Creatinine Ratio 15; Blood Urea Nitrogen 9 mg/dL (7-17); Calcium 8.8 mg/dL (8.4-10.2); Hemolysis Index 4
--- NOTE | 2018-12-21 07:36 | Progress Note ---
Assessment and Plan Assessment and plan: Patient is a 38 yo woman with RA, HTN, Nicotine Dependence, Obesity, CVA with RHP, Obesity Hypoventilation Syndrome admitted to IRU. Consult placed by Dr. Leigh for Medical management of HTN. 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 Follow-up on current diagnosis of hypertension. No overnight events reported to me. Patient denies any chest pain, shortness breath, nausea/vomiting or severe headaches. Imaging, nursing note, chart, labs and old chart reviewed. Discussed with patient. Hospitalist Physical - Physical exam Narrative exam: Gen: WDWN, bmi 53.3 NAD, Awake, Alert, Orientated HEENT: NCAT, EOMI, PERRL, OP Clear Neck: supple, no adenopathy, no thyromegaly, no JVD CVS/Heart: RRR, normal S1S2, pulses present bilaterally Chest/Lungs: CTA B, Symmetrical chest expansion, good air entry bilaterally GI/Abdomen: soft, NTND, good bowel sounds, no guarding or rebound /Bladder: no suprapubic tenderness, no CVA or paraspinal tenderness Extermity/Skin: no c/c/e, no obvious rash MSK: FROM x 2 Neuro: CN 2-12 grossly intact, rhp w/o new focal deficits Psych: calm - Constitutional Vitals: Temp Pulse Resp BP Pulse Ox 97.9 F 75 20 150/69 94 12/21/18 04:29 12/21/18 04:29 12/21/18 04:29 12/21/18 04:29 12/21/18 04:29 General appearance: Absent: mild distress Results - Labs CBC & Chem 7: 12/21/18 05:16 12/21/18 05:16 Labs: Laboratory Last Values WBC 7.0 K/mm3 (4.5-11.0) 12/21/18 05:16 RBC 4.92 M/mm3 (3.65-5.03) 12/21/18 05:16 Hgb 14.4 gm/dl (10.1-14.3) H 12/21/18 05:16 Hct 42.6 % (30.3-42.9) 12/21/18 05:16 MCV 87 fl (79-97) 12/21/18 05:16 MCH 29 pg (28-32) 12/21/18 05:16 MCHC 34 % (30-34) 12/21/18 05:16 RDW 13.8 % (13.2-15.2) 12/21/18 05:16 Plt Count 261 K/mm3 (140-440) 12/21/18 05:16 Lymph % (Auto) 32.1 % (13.4-35.0) 12/21/18 05:16 [place] % (Auto) 8.8 % (0.0-7.3) H 12/21/18 05:16 Eos % (Auto) 1.3 % (0.0-4.3) 12/21/18 05:16 Baso % (Auto) 1.1 % (0.0-1.8) 12/21/18 05:16 Lymph # 2.2 K/mm3 (1.2-5.4) 12/21/18 05:16 [place] # 0.6 K/mm3 (0.0-0.8) 12/21/18 05:16 Eos # 0.1 K/mm3 (0.0-0.4) 12/21/18 05:16 Baso # 0.1 K/mm3 (0.0-0.1) 12/21/18 05:16 Seg Neutrophils % 56.7 % (40.0-70.0) 12/21/18 05:16 Seg Neutrophils # 4.0 K/mm3 (1.8-7.7) 12/21/18 05:16 Sodium 140 mmol/L (137-145) 12/21/18 05:16 Potassium 4.1 mmol/L (3.6-5.0) 12/21/18 05:16 Chloride 103.2 mmol/L (98-107) 12/21/18 05:16 Carbon Dioxide 25 mmol/L (22-30) 12/21/18 05:16 16 mmol/L 12/21/18 05:16 BUN 9 mg/dL (7-17) 12/21/18 05:16 0.6 mg/dL (0.7-1.2) L 12/21/18 05:16 Estimated GFR > 60 ml/min 12/21/18 05:16 15 % 12/21/18 05:16 Glucose 89 mg/dL (65-100) 12/21/18 05:16 Calcium 8.8 mg/dL (8.4-10.2) 12/21/18 05:16 0.60 mg/dL (0.1-1.2) 12/14/18 03:57 AST 15 units/L (5-40) 12/14/18 03:57 ALT 23 units/L (7-56) 12/14/18 03:57 104 units/L (35-129) 12/14/18 03:57 7.4 g/dL (6.3-8.2) 12/14/18 03:57 3.7 g/dL (3.9-5) L 12/14/18 03:57 1.0 % 12/14/18 03:57 Active Medications - Current Medications Current Medications: Generic Name Dose Route Start Last Admin Trade Name Freq PRN Reason Stop Dose Admin Acetaminophen 500 mg 12/13/18 18:32 12/14/18 06:26 Tylenol PO 500 mg Q6H PRN Administration Pain, Mild (1-3) Albuterol 2.5 mg 12/13/18 18:27 Proventil IH Q4HRT PRN Shortness Of Breath Amlodipine Besylate 10 mg 12/14/18 08:00 12/20/18 09:31 Norvasc PO 10 mg QDAY LINUS Administration Aspirin 325 mg 12/14/18 08:00 12/20/18 09:30 Ecotrin PO 325 mg QDAY LINUS Administration Atorvastatin Calcium 40 mg 12/13/18 22:00 12/20/18 21:42 Lipitor PO 40 mg QHS LINUS Administration Bisacodyl 10 mg 12/13/18 18:20 Dulcolax [place] QDAY PRN Constipation Enoxaparin Sodium 40 mg 12/14/18 08:00 12/20/18 09:30 Lovenox SUB-Q 40 mg QDAY LINUS Administration Escitalopram Oxalate 10 mg 12/14/18 12:00 12/20/18 09:31 Lexapro PO 10 mg QDAY LINUS Administration Ibuprofen 600 mg 12/14/18 11:00 12/20/18 15:55 Motrin PO 600 mg BID PRN Administration Pain, Mild (1-3) Lisinopril 10 mg 12/19/18 15:00 12/20/18 09:30 Zestril PO 10 mg QDAY LINUS Administration Nicotine 21 mg 12/14/18 08:00 12/20/18 09:40 Habitrol TD Not Given QDAY LINUS Pantoprazole Sodium 20 mg 12/18/18 10:00 12/20/18 09:31 Protonix PO 20 mg QDAY LINUS Administration Nutrition/Malnutrition Assess - Dietary Evaluation Nutrition/Malnutrition Findings: Nutrition Notes Start: 12/20/18 16:08 Freq: Status: Active Protocol: Document 12/20/18 16:08 RM (Rec: 12/20/18 16:09 RM [id number]) Nutrition Notes Need for Assessment generated from: LOS Initial or Follow up Brief Note Height 5 ft 4 in Weight 140.9 kg [place] Body Weight (kg) 54.54 BMI 53.3 Subjective/Other Information Screened for LOS. PO intake 95% X 2 days. Nutrition Intervention Revisit per MD consult or patient Sign Off request:
[2018-12-21] MEDS: ZESTRIL PO SCH (10:23)
[2018-12-21] MEDS: NORVASC PO SCH (10:23)
[2018-12-21] MEDS: LEXAPRO PO SCH (10:23)
[2018-12-21] MEDS: ECOTRIN PO SCH (10:24)
[2018-12-21] MEDS: PROTONIX PO SCH (10:25)
[2018-12-21] MEDS: LOVENOX SUB-Q SCH (10:25)
[2018-12-21] MEDS: HABITROL TD SCH (10:26)
--- NOTE | 2018-12-21 11:50 | Progress Note ---
Subjective Date of service: 12/21/18 Principal diagnosis: CVA Interval history: 38-year-old predominantly right-handed (ambidextrous) female with acute onset of slurred speech and facial droop and left-sided weakness presented to the ER and was worked up and found to have right sided CVA. She was given TPA with improvement in symptoms and transferred to the ICU. After she was stabilized she was transferred to the floor. Pulmonology was consulted for obesity hypoventilation syndrome and recommended an outpatient sleep study. Patient had vaccinations while inpatient and developed low-grade fevers which resolved. States that she recently started back smoking and has been started on nicotine patch. Smoking cessation was discussed with the patient and has also been ordered. Discussed at length with patient stroke prognosis and secondary stroke prevention. Patient also states that she's had increased anxiety since being in the hospital along with bouts of tearfulness and is agreeable to starting medication. Also states she's been constipated. Patient states that her mother has come in town and will be available to stay with her until she is able to return to her former function. She lives in a two-story house with her children. 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 After the patient was medically stabilized they were transferred for further rehabilitation. All alan ilable medical records have been reviewed. Plan of care was discussed with patient. Patient is participating in therapy and making reasonable progress. Taking rest breaks as needed. +BM. Strength in arm is improving. Blood pressure doing better overall. Appreciate hospitalist assistance with monitoring and adjusting medications. Tolerated PPI well with resolution of symptoms. We'll continue to monitor for any further issues. Right antecubital area has what appears to be a fungal rash which started over the last 2 days and is itching, slightly red and raised. Denies pain, palpitations, dyspnea, cough, N/V, or joint pain. All records, vitals, labs and medications were reviewed. No other issues per patient, nursing or therapy. Objective - Exam Narrative Exam: MUSCULOSKELETAL SPECIALTY EXAM CONSTITUTIONAL: Well developed, well nourished, appropriately groomed, obese female. RIGHT hand dominant. RESPIRATORY: Clear to auscultation bilaterally, no increased work of breathing CARDIOVASCULAR: Regular Rate/ Rhythm, no swelling, edema or tenderness in BUE or BLE. All extremities warm. GI: + bowel sounds, soft, NTTP, nondistended, protuberant. INTEGUMENTARY: Normal, no lesion, masses or bruising noted in extremities. Rash in right antecubital, appears fungal in nature. MUSCULOSKELETAL: BUE and BLE normal without defect, crepitus, subluxation, effusion, arthritic changes (patient states history of RA but no definitive signs seen at this point) or TTP. SA EF WE EE FF FA HF KE ADF EHL APF R 12/05/12 05/ 5/12/05/12 05/12 05/12 05/12 05/12/05 L /10/05 ROM full on the right, decreased on the left Tone normal NEURO: Facial sensation intact but altered on the left, otherwise cranial nerves II th rough XII grossly intact Sensation intact in all extremities without extinction but it is altered on the left compared to right. No tremor noted in 4 extremities. Naming and repetition intact. Follows 2 step commands. Aphasia not appreciated. Dysarthria not appreciated Dysphagia not present Neglect not appreciated POSTURE and GAIT: Sitting posture good. Balance appears reasonable. Gait deferred until seen with therapy. PSYCH: Alert, orientated x3, affect appears euthymic. Insight appears intact. - Constitutional Vitals: Vital Signs - 12hr 12/21/18 12/21/18 12/21/18 00:23 04:29 08:00 Temperature 36.2 C L 36.6 C 36.8 C Pulse Rate 69 75 81 Respiratory 20 20 18 Rate Blood Pressure 124/62 150/69 Blood Pressure 132/81 [Right] O2 Sat by Pulse 95 94 Oximetry 12/21/18 12/21/18 12/21/18 09:10 09:11 10:23 Temperature 36.8 C Pulse Rate 86 85 69 Respiratory 18 Rate Blood Pressure 124/62 Blood Pressure [Right] O2 Sat by Pulse 92 92 Oximetry - Allied health notes Allied health notes reviewed: nursing, PT, OT FIMS assessment as documented by PT/OT/ST: Grooming Patient cleans teeth/dentures: Yes Patient montemayor/brushes hair: Yes Patient washes, rinses and Yes dries face: Patient washes, rinses and Yes dries hands: Patient shaves: No Patient applies make-up: No Patient performs (no make-up/ 11/04 (100%) shaving): Patient performs (w/ make-up/ / (80%) shaving): Grooming FIM Score 5. Supervision ([place] applies toothpaste or opens containers.) Toileting Toileting Device Commode over Toilet Patient able to: Adjust clothes before,Clean self,Adjust clothes after Patient able to perform: 3/3 (100%) Toileting FIM Score 4. Minimal Assistance (Patient = 75% or more. Needs touching.) Social interaction/Memory/Problem solving Social Interaction FIM Score 5. Supervision (Needs supv. <10%. Needs encouragement to participate.) Memory FIM Score 5. Supervision (Needs cueing <10%, stressful/ unfamiliar situations.) Problem Solving FIM Score 5. Supervision (Needs cueing <10% to solve routine problems.) Transfers Mode of Locomotion: Wheelchair Bed/Chair/Wheelchair Transfers 5. Supervision (Needs supv. or set-up for FIM Score sliding board, foot rests.) Toilet Transfers FIM Score 5. Supervision (Needs supervision or cueing.) Patient transferred to: Shower Shower Transfers FIM Score 5. Supervision (Needs supv. or set-up with device.) Locomotion- Stairs Device used on Stairs Handrail/s Number of Stairs Ascended/ 4 Descended Patient used handrail/support: Yes Stairs FIM Score 2. Maximal Assistance (Patient = 25% or more, 4- 6 stairs.) Locomotion- walk/wheelchair Most Frequent Mode of Wheelchair Locomotion: Ambulation Distance 150 Walking FIM Score 5. Supervision (Minimum 150 ft. supv./cues or 50 ft. independently.) Wheelchair Propulsion Distance 300 Wheelchair FIM Score 6. Modified [place] (Wheels a minimum of 150 ft.) Eating Eating FIM Score 5. Supervision/Set-Up (Needs help w/ containers, cutting meat, etc.) Dressing-Upper body Patient retrieves clothing Yes items: Patient applies/removes UE n/a prosthesis or orthosis: Upper Body Dressing FIM Score 5. Supv./Set-Up ([place] sets out clothes or applies pros./orth.) Dressing-lower body Patient retrieves clothing Yes items: Patient applies/removes LE n/a prosthesis or orthosis: Lower Body Dressing FIM Score 5. Supv./Set-Up ([place] sets out clothes or applies pros./orth.) - Labs CBC & Chem 7: 12/21/18 05:16 12/21/18 05:16 Labs: Laboratory Results - last 72 hr 12/21/18 12/21/18 05:16 05:16 WBC 7.0 RBC 4.92 Hgb 14.4 H Hct 42.6 MCV 87 MCH 29 MCHC 34 RDW 13.8 Plt Count 261 Lymph % (Auto) 32.1 [place] % (Auto) 8.8 H Eos % (Auto) 1.3 Baso % (Auto) 1.1 Lymph # 2.2 [place] # 0.6 Eos # 0.1 Baso # 0.1 Seg Neutrophils % 56.7 Seg Neutrophils # 4.0 Sodium 140 Potassium 4.1 Chloride 103.2 Carbon Dioxide 25 Anion Gap 16 BUN 9 Creatinine 0.6 L Estimated GFR > 60 BUN/Creatinine Ratio 15 Glucose 89 Calcium 8.8 Assessment and Plan I69.354 CVA with hemiparesis affecting left nondominant side: TPA given. Continue secondary stroke prevention. Monitor for worsening post stroke depression. Monitor for worsening neurologic decline. Continue therapy as below. I69.815 Cognitive deficits after CVA: [employer] to eval and treat for discrete cognitive dysfunction. We will need return of cognitive function prior to returning to her previous line of work. She is doing well from a cognitive standpoint as far as the tasks that we can provide her. She still feels like s he is reading at a much slower pace than previous and this will be a factor with her line of work and volume of work. Speech is working to try and improve this and see if they can find any areas of deficits. M06.9 RA unspecified: Patient states she was diagnosed with rheumatoid arthritis years ago, only takes ibuprofen for relief. K59.00 Constipation: Continue medications, adjust as needed. Monitor J45 Asthma: Continue nebulizers and inhalers as needed. O2 when necessary with monitoring by respiratory therapy. I10 hypertension: Continue medications, monitor blood pressure and adjust medications as needed for normotension. Z73.6 ADL dysfunction: OT will work on improving ability to perform ADLs (including assistive devices) to increase independence and decrease caregiver burden and improve functional transfers and mobility training. R26.2 Difficulty walking: PT will work on gait training and proper use of assistive devices and advance as appropriate to use of stairs and outside ambul ation on uneven surfaces. R26.81 Unsteadiness on feet: PT will work on improving static and dynamic sitting and standing balance as well as proper use of assistive devices to decrease risk of falls. R26.89 Abnormality of gait: PT will work to improve safety and efficiency of gait through neuromotor training and gait training along with instruction on proper use of assistive devices. M62.81 Muscle weakness: PT & OT will work on strengthening exercises to improve functional strength including mixture of closed and open kinetic chain exercises. R53.81 Debility: PT & OT will work on improving overall functional status to improve participation with ADLs, mobility and social involvement. R53.83 Fatigue: PT & OT will work on improving endurance through aerobic exercises and therapeutic activity while monitoring patients tolerance for activity and vital signs as needed. Fungal rash right antecubital area: Nystatin cream, monitor Dyspepsia: PPI, monitor Internal medicine consult for hypertension management DVT ppx: Lovenox Pain: Continue physical modalities in therapy and pain medications as needed to achieve functional pain control. Sleep: Monitor and address as needed. Bowel: Monitor and address as needed. Appetite: Monitor and address as needed. Discharge planning: Pending therapy progress and care plan meeting. Will continue discussion with therapy team, SW, patient and family. Restrictions/ Precautions: Falls WB status: FWB Functional Hx: ADLs: Independent Cognition: Independent Mobility: No AD Barriers to Discharge: Decreased mobility and ability to perform self care, balance deficits, weakness, discrete cognitive dysfunction Estimated Length of Stay: 14-21 days Discharge Destination: Home with family
[2018-12-21] MEDS: MYCOSTATIN TP SCH ×2 (14:00→21:12)
[2018-12-22] MEDS: LEXAPRO PO SCH (10:29)
[2018-12-22] MEDS: ECOTRIN PO SCH (10:30)
[2018-12-22] MEDS: IBUPROFEN PO PRN ×2 (10:30→21:13)
[2018-12-22] MEDS: PROTONIX PO SCH (10:31)
[2018-12-22] MEDS: NORVASC PO SCH (10:31)
[2018-12-22] MEDS: ZESTRIL PO SCH (10:32)
[2018-12-22] MEDS: LOVENOX SUB-Q SCH (10:32)
[2018-12-22] MEDS: MYCOSTATIN TP SCH ×2 (10:34→21:14)
[2018-12-22] MEDS: HABITROL TD SCH (10:35)
--- NOTE | 2018-12-22 15:10 | Progress Note ---
Assessment and Plan Assessment and plan: Patient is a 38 yo woman with RA, HTN, Nicotine Dependence, Obesity, CVA with RHP, Obesity Hypoventilation Syndrome admitted to IRU. Consult placed by Dr. Leigh for Medical management of HTN. 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 Follow-up on current diagnosis of hypertension. No overnight events reported to me. Patient denies any chest pain, shortness breath, nausea/vomiting or severe headaches. Imaging, nursing note, chart, labs and old chart reviewed. Discussed with patient. Hospitalist Physical - Physical exam Narrative exam: Gen: WDWN, bmi 53.3 NAD, Awake, Alert, Orientated HEENT: NCAT, EOMI, PERRL, OP Clear Neck: supple, no adenopathy, no thyromegaly, no JVD CVS/Heart: RRR, normal S1S2, pulses present bilaterally Chest/Lungs: CTA B, Symmetrical chest expansion, good air entry bilaterally GI/Abdomen: soft, NTND, good bowel sounds, no guarding or rebound /Bladder: no suprapubic tenderness, no CVA or paraspinal tenderness Extermity/Skin: no c/c/e, no obvious rash MSK: FROM x 2 Neuro: CN 2-12 grossly intact, rhp w/o new focal deficits Psych: calm - Constitutional Vitals: Temp Pulse Resp BP Pulse Ox 97.9 F 89 20 169/68 96 12/22/18 04:01 12/22/18 10:32 12/22/18 04:01 12/22/18 10:32 12/22/18 04:01 General appearance: Absent: mild distress Results - Labs CBC & Chem 7: 12/21/18 05:16 12/21/18 05:16 Labs: Laboratory Last Values WBC 7.0 K/mm3 (4.5-11.0) 12/21/18 05:16 RBC 4.92 M/mm3 (3.65-5.03) 12/21/18 05:16 Hgb 14.4 gm/dl (10.1-14.3) H 12/21/18 05:16 Hct 42.6 % (30.3-42.9) 12/21/18 05:16 MCV 87 fl (79-97) 12/21/18 05:16 MCH 29 pg (28-32) 12/21/18 05:16 MCHC 34 % (30-34) 12/21/18 05:16 RDW 13.8 % (13.2-15.2) 12/21/18 05:16 Plt Count 261 K/mm3 (140-440) 12/21/18 05:16 Lymph % (Auto) 32.1 % (13.4-35.0) 12/21/18 05:16 [place] % (Auto) 8.8 % (0.0-7.3) H 12/21/18 05:16 Eos % (Auto) 1.3 % (0.0-4.3) 12/21/18 05:16 Baso % (Auto) 1.1 % (0.0-1.8) 12/21/18 05:16 Lymph # 2.2 K/mm3 (1.2-5.4) 12/21/18 05:16 [place] # 0.6 K/mm3 (0.0-0.8) 12/21/18 05:16 Eos # 0.1 K/mm3 (0.0-0.4) 12/21/18 05:16 Baso # 0.1 K/mm3 (0.0-0.1) 12/21/18 05:16 Seg Neutrophils % 56.7 % (40.0-70.0) 12/21/18 05:16 Seg Neutrophils # 4.0 K/mm3 (1.8-7.7) 12/21/18 05:16 Sodium 140 mmol/L (137-145) 12/21/18 05:16 Potassium 4.1 mmol/L (3.6-5.0) 12/21/18 05:16 Chloride 103.2 mmol/L (98-107) 12/21/18 05:16 Carbon Dioxide 25 mmol/L (22-30) 12/21/18 05:16 16 mmol/L 12/21/18 05:16 BUN 9 mg/dL (7-17) 12/21/18 05:16 0.6 mg/dL (0.7-1.2) L 12/21/18 05:16 Estimated GFR > 60 ml/min 12/21/18 05:16 15 % 12/21/18 05:16 Glucose 89 mg/dL (65-100) 12/21/18 05:16 Calcium 8.8 mg/dL (8.4-10.2) 12/21/18 05:16 0.60 mg/dL (0.1-1.2) 12/14/18 03:57 AST 15 units/L (5-40) 12/14/18 03:57 ALT 23 units/L (7-56) 12/14/18 03:57 104 units/L (35-129) 12/14/18 03:57 7.4 g/dL (6.3-8.2) 12/14/18 03:57 3.7 g/dL (3.9-5) L 12/14/18 03:57 1.0 % 12/14/18 03:57 Active Medications - Current Medications Current Medications: Generic Name Dose Route Start Last Admin Trade Name Freq PRN Reason Stop Dose Admin Acetaminophen 500 mg 12/13/18 18:32 12/14/18 06:26 Tylenol PO 500 mg Q6H PRN Administration Pain, Mild (1-3) Albuterol 2.5 mg 12/13/18 18:27 Proventil IH Q4HRT PRN Shortness Of Breath Amlodipine Besylate 10 mg 12/14/18 08:00 12/22/18 10:31 Norvasc PO 10 mg QDAY LINUS Administration Aspirin 325 mg 12/14/18 08:00 12/22/18 10:30 Ecotrin PO 325 mg QDAY LINUS Administration Atorvastatin Calcium 40 mg 12/13/18 22:00 12/21/18 21:12 Lipitor PO 40 mg QHS LINUS Administration Bisacodyl 10 mg 12/13/18 18:20 Dulcolax [place] QDAY PRN Constipation Enoxaparin Sodium 40 mg 12/14/18 08:00 12/22/18 10:32 Lovenox SUB-Q 40 mg QDAY LINUS Administration Escitalopram Oxalate 10 mg 12/14/18 12:00 12/22/18 10:29 Lexapro PO 10 mg QDAY LINUS Administration Ibuprofen 600 mg 12/14/18 11:00 12/22/18 10:30 Motrin PO 600 mg BID PRN Administration Pain, Mild (1-3) Lisinopril 10 mg 12/19/18 15:00 12/22/18 10:32 Zestril PO 10 mg QDAY LINUS Administration Nicotine 21 mg 12/14/18 08:00 12/22/18 10:35 Habitrol TD Not Given QDAY LINUS Nystatin 1 applic 12/21/18 14:00 12/22/18 10:34 Mycostatin TP 12/28/18 13:59 1 applic TID LINUS Administration Pantoprazole Sodium 20 mg 12/18/18 10:00 12/22/18 10:31 Protonix PO 20 mg QDAY LINUS Administration Nutrition/Malnutrition Assess - Dietary Evaluation Nutrition/Malnutrition Findings: Nutrition Notes Start: 12/20/18 16:08 Freq: Status: Active Protocol: Document 12/20/18 16:08 RM (Rec: 12/20/18 16:09 [id number]) Nutrition Notes Need for Assessment generated from: LOS Initial or Follow up Brief Note Height 5 ft 4 in Weight 140.9 kg [place] Body Weight (kg) 54.54 BMI 53.3 Subjective/Other Information Screened for LOS. PO intake 95% X 2 days. Nutrition Intervention Revisit per MD consult or patient Sign Off request:
[2018-12-23] MEDS: LEXAPRO PO SCH (09:18)
[2018-12-23] MEDS: ECOTRIN PO SCH (09:18)
[2018-12-23] MEDS: PROTONIX PO SCH (09:19)
[2018-12-23] MEDS: NORVASC PO SCH (09:19)
[2018-12-23] MEDS: ZESTRIL PO SCH (09:19)
[2018-12-23] MEDS: LOVENOX SUB-Q SCH (09:20)
[2018-12-23] MEDS: MYCOSTATIN TP SCH ×4 (09:22→21:50)
[2018-12-23] MEDS: HABITROL TD SCH (09:23)
[2018-12-23] MEDS: IBUPROFEN PO PRN ×2 (09:41→21:46)
--- NOTE | 2018-12-23 10:46 | Progress Note ---
Subjective Date of service: 12/23/18 Principal diagnosis: CVA Interval history: 38-year-old predominantly right-handed (ambidextrous) female with acute onset of slurred speech and facial droop and left-sided weakness presented to the ER and was worked up and found to have right sided CVA. She was given TPA with improvement in symptoms and transferred to the ICU. After she was stabilized she was transferred to the floor. Pulmonology was consulted for obesity hypoventilation syndrome and recommended an outpatient sleep study. Patient had vaccinations while inpatient and developed low-grade fevers which resolved. States that she recently started back smoking and has been started on nicotine patch. Smoking cessation was discussed with the patient and has also been ordered. Discussed at length with patient stroke prognosis and secondary stroke prevention. Patient also states that she's had increased anxiety since being in the hospital along with bouts of tearfulness and is agreeable to starting medication. Also states she's been constipated. Patient states that her mother has come in town and will be available to stay with her until she is able to return to her former function. She lives in a two-story house with her children. 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 After the patient was medically stabilized they were transferred for further rehabilitation. All alan ilable medical records have been reviewed. Plan of care was discussed with patient. Patient is participating in therapy and making reasonable progress. Taking rest breaks as needed. +BM. Strength in arm is improving but not equal yet. Blood pressure elevated last few checks. Appreciate hospitalist assistance with monitoring and adjusting medications. Tolerated PPI well with resolution of s ymptoms. We'll continue to monitor for any further issues. Right antecubital area has what appears to be a fungal rash which started over the last 2 days and is itching, slightly red and raised, improved with nystatin. Tolerating stairs with some weakness. Denies pain, palpitations, dyspnea, cough, N/V, or joint pain. All records, vitals, labs and medications were reviewed. No other issues per patient, nursing or therapy. Objective - Exam Narrative Exam: MUSCULOSKELETAL SPECIALTY EXAM CONSTITUTIONAL: Well developed, well nourished, appropriately groomed, obese female. RIGHT hand dominant. RESPIRATORY: Clear to auscultation bilaterally, no increased work of breathing CARDIOVASCULAR: Regular Rate/ Rhythm, no swelling, edema or tenderness in BUE or BLE. All extremities warm. GI: + bowel sounds, soft, NTTP, nondistended, protuberant. INTEGUMENTARY: Normal, no lesion, masses or bruising noted in extremities. Rash in right antecubital, appears fungal in nature. MUSCULOSKELETAL: BUE and BLE normal without defect, crepitus, subluxation, effusion, arthritic changes (patient states history of RA but no definitive signs seen at this point) or TTP. SA EF WE EE FF FA HF KE ADF EHL APF R 5/5 5/5 5/5 5/5 5/5 5/5 5/5 5/5 5/5 5/5 5/5 L 4-/5 4-/5 4-/5 4-/5 4-/5 4-/5 4-/5 4-/5 4-/5 4-/5 4-/5 ROM full on the right, decreased on the left Tone normal NEURO: Facial sensation intact but altered on the left, otherwise cranial nerves II through XII grossly intact Sensation intact in all extremities without extinction but it is altered on the left compared to right. No tremor noted in 4 extremities. Naming and repetition intact. Follows 2 step commands. Aphasia not appreciated. Dysarthria not appreciated Dysphagia not present Neglect not appreciated POSTURE and GAIT: Sitting posture good. Balance appears reasonable. Gait deferred until seen with therapy. PSYCH: Alert, orientated x3, affect appears euthymic. Insight appears intact. - Constitutional Vitals: Vital Signs - 12hr 12/23/18 09:19 Pulse Rate 72 Blood Pressure 141/90 - Allied health notes Allied health notes reviewed: nursing, PT, OT FIMS assessment as documented by PT/OT/ST: Grooming Patient cleans teeth/dentures: Yes Patient montemayor/brushes hair: Yes Patient washes, rinses and Yes dries face: Patient washes, rinses and Yes dries hands: Patient shaves: No Patient applies make-up: No Patient performs (no make-up/ 11/04 (100%) shaving): Patient performs (w/ make-up/ /5 (100%) shaving): Grooming FIM Score 5. Supervision (Rosser applies toothpaste or opens containers.) Toileting Toileting Device Urinal,Bedside Commode,Commode over Toilet Patient able to: Adjust clothes before,Clean self,Adjust clothes after Patient able to perform: 3/3 (100%) Toileting FIM Score 6. Modified [place] (Needs equip. or prosth ./orth.) Social interaction/Memory/Problem solving Social Interaction FIM Score 5. Supervision (Needs supv. <10%. Needs encouragement to participate.) Memory FIM Score 6. Modified [place](Mild difficulty remembering people/routines.) Problem Solving FIM Score 5. Supervision (Needs cueing <10% to solve routine problems.) Transfers Mode of Locomotion: Wheelchair Bed/Chair/Wheelchair Transfers 5. Supervision (Needs supv. or set-up for FIM Score sliding board, foot rests.) Toilet Transfers FIM Score 5. Supervision (Needs supervision or cueing.) Patient transferred to: Shower Shower Transfers FIM Score 5. Supervision (Needs supv. or set-up with device.) Locomotion- Stairs Device used on Stairs Handrail/s Number of Stairs Ascended/ 12 Descended Patient used handrail/support: Yes Stairs FIM Score 6. Modified [place] (12-14 stairs using handrail/support.) Locomotion- walk/wheelchair Most Frequent Mode of Wheelchair Locomotion: Ambulation Distance 118 Walking FIM Score 5. Supervision (Minimum 150 ft. supv./cues or 50 ft. independently.) Wheelchair Propulsion Distance 300 Wheelchair FIM Score 6. Modified [place] (Wheels a minimum of 150 ft.) Eating Eating FIM Score 6. Modified [place] (Special consistency or uses device.) Dressing-Upper body Patient retrieves clothing Yes items: Patient applies/removes UE n/a prosthesis or orthosis: Upper Body Dressing FIM Score 6. Modified [place] (Needs equipment, velcro or pros./orth.) Dressing-lower body Patient retrieves clothing Yes items: Patient applies/removes LE Yes prosthesis or orthosis: Lower Body Dressing FIM Score 5. Supv./Set-Up (Rosser sets out clothes or applies pros./orth.) - Labs CBC & Chem 7: 12/21/18 05:16 12/21/18 05:16 Labs: Laboratory Results - last 72 hr 12/21/18 12/21/18 05:16 05:16 WBC 7.0 RBC 4.92 Hgb 14.4 H Hct 42.6 MCV 87 MCH 29 MCHC 34 RDW 13.8 Plt Count 261 Lymph % (Auto) 32.1 [place] % (Auto) 8.8 H Eos % (Auto) 1.3 Baso % (Auto) 1.1 Lymph # 2.2 [place] # 0.6 Eos # 0.1 Baso # 0.1 Seg Neutrophils % 56.7 Seg Neutrophils # 4.0 Sodium 140 Potassium 4.1 Chloride 103.2 Carbon Dioxide 25 Anion Gap 16 BUN 9 Creatinine 0.6 L Estimated GFR > 60 BUN/Creatinine Ratio 15 Glucose 89 Calcium 8.8 Assessment and Plan I69.354 CVA with hemiparesis affecting left nondominant side: TPA given. Continue secondary stroke prevention. Monitor for worsening post stroke depression. Monitor for worsening neurologic decline. Continue therapy as below. I69.815 Cognitive deficits after CVA: HAIR MIXER to eval and treat for discrete cognitive dysfunction. We will need return of cognitive function prior to returning to her previous line of work. She is doing well from a cognitive standpoint as far as the tasks that we can provide her. She still feels like she is reading at a much slower pace than previous and this will be a factor with her line of work and volume of work. Speech is working to try and improve this and see if they can find any areas of deficits. M06.9 RA unspecified: Patient states she was diagnosed with rheumatoid arthritis years ago, only takes ibuprofen for relief. K59.00 Constipation: Continue medications, adjust as needed. Monitor J45 Asthma: Continue nebulizers and inhalers as needed. O2 when necessary with monitoring by respiratory therapy. I10 hypertension: Continue medications, monitor blood pressure and adjust medications as needed for normotension. Z73.6 ADL dysfunction: OT will work on improving ability to perform ADLs (inclu ding assistive devices) to increase independence and decrease caregiver burden and improve functional transfers and mobility training. R26.2 Difficulty walking: PT will work on gait training and proper use of assistive devices and advance as appropriate to use of stairs and outside ambulation on uneven surfaces. R26.81 Unsteadiness on feet: PT will work on improving static and dynamic sitting and standing balance as well as proper use of assistive devices to decrease risk of falls. R26.89 Abnormality of gait: PT will work to improve safety and efficiency of gait through neuromotor training and gait training along with instruction on proper use of assistive devices. M62.81 Muscle weakness: PT & OT will work on strengthening exercises to improve functional strength including mixture of closed and open kinetic chain exercises. R53.81 Debility: PT & OT will work on improving overall functional status to improve participation with ADLs, mobility and social involvement. R53.83 Fatigue: PT & OT will work on improving endurance through aerobic exercises and therapeutic activity while monitoring patients tolerance for activity and vital signs as needed. Fungal rash right antecubital area: Nystatin cream, monitor Dyspepsia: PPI, monitor Internal medicine consult for hypertension management DVT ppx: Lovenox Pain: Continue physical modalities in therapy and pain medications as needed to achieve functional pain control. Sleep: Monitor and address as needed. Bowel: Monitor and address as needed. Appetite: Monitor and address as needed. Discharge planning: Pending therapy progress and care plan meeting. Will continue discussion with therapy team, SW, patient and family. Restrictions/ Precautions: Falls WB status: FWB Functional Hx: ADLs: Independent Cognition: Independent Mobility: No AD Barriers to Discharge: Decreased mobility and ability to perform self care, balance deficits, weakness, discrete cognitive dysfunction Estimated Length of Stay: 14-21 days Discharge Destination: Home with family
--- NOTE | 2018-12-23 15:41 | Progress Note ---
Assessment and Plan Assessment and plan: Patient is a 38 yo woman with RA, HTN, Nicotine Dependence, Obesity, CVA with RHP, Obesity Hypoventilation Syndrome admitted to IRU. Consult placed by Dr. Leigh for Medical management of HTN. Hypertension stable: low salt diet, optimize bp meds as needed Morbid Obesity, BMI 53.3: lifesytle modications discussed Tobacco dependency: cessation counseling done CVA with RHP: per IRU physician Will sign off, please page me with any concerns or questions. History Interval history: Grand Scribe Role, managing hypertension Patient was seen and examined. Follow-up on current diagnosis of hypertension. No overnight events reported to me. Patient denies any chest pain, shortness breath, nausea/vomiting or severe headaches. Imaging, nursing note, chart, labs and old chart reviewed. Discussed with patient. Hospitalist Physical - Physical exam Narrative exam: Gen: WDWN, bmi 53.3 NAD, Awake, Alert, Orientated HEENT: NCAT, EOMI, PERRL, OP Clear Neck: supple, no adenopathy, no thyromegaly, no JVD CVS/Heart: RRR, normal S1S2, pulses present bilaterally Chest/Lungs: CTA B, Symmetrical chest expansion, good air entry bilaterally GI/Abdomen: soft, NTND, good bowel sounds, no guarding or rebound /Bladder: no suprapubic tenderness, no CVA or paraspinal tenderness Extermity/Skin: no c/c/e, no obvious rash MSK: FROM x 2 Neuro: CN 2-12 grossly intact, rhp w/o new focal deficits Psych: calm - Constitutional Vitals: Temp Pulse Resp BP Pulse Ox 97.4 F L 59 L 18 121/68 97 12/23/18 12:08 12/23/18 12:08 12/23/18 12:08 12/23/18 12:08 12/23/18 12:08 General appearance: Absent: mild distress Results - Labs CBC & Chem 7: 12/21/18 05:16 12/21/18 05:16 Labs: Laboratory Last Values WBC 7.0 K/mm3 (4.5-11.0) 12/21/18 05:16 RBC 4.92 M/mm3 (3.65-5.03) 12/21/18 05:16 Hgb 14.4 gm/dl (10.1-14.3) H 12/21/18 05:16 Hct 42.6 % (30.3-42.9) 12/21/18 05:16 MCV 87 fl (79-97) 12/21/18 05:16 MCH 29 pg (28-32) 12/21/18 05:16 MCHC 34 % (30-34) 12/21/18 05:16 RDW 13.8 % (13.2-15.2) 12/21/18 05:16 Plt Count 261 K/mm3 (140-440) 12/21/18 05:16 Lymph % (Auto) 32.1 % (13.4-35.0) 12/21/18 05:16 [place] % (Auto) 8.8 % (0.0-7.3) H 12/21/18 05:16 Eos % (Auto) 1.3 % (0.0-4.3) 12/21/18 05:16 Baso % (Auto) 1.1 % (0.0-1.8) 12/21/18 05:16 Lymph # 2.2 K/mm3 (1.2-5.4) 12/21/18 05:16 [place] # 0.6 K/mm3 (0.0-0.8) 12/21/18 05:16 Eos # 0.1 K/mm3 (0.0-0.4) 12/21/18 05:16 Baso # 0.1 K/mm3 (0.0-0.1) 12/21/18 05:16 Seg Neutrophils % 56.7 % (40.0-70.0) 12/21/18 05:16 Seg Neutrophils # 4.0 K/mm3 (1.8-7.7) 12/21/18 05:16 Sodium 140 mmol/L (137-145) 12/21/18 05:16 Potassium 4.1 mmol/L (3.6-5.0) 12/21/18 05:16 Chloride 103.2 mmol/L (98-107) 12/21/18 05:16 Carbon Dioxide 25 mmol/L (22-30) 12/21/18 05:16 16 mmol/L 12/21/18 05:16 BUN 9 mg/dL (7-17) 12/21/18 05:16 0.6 mg/dL (0.7-1.2) L 12/21/18 05:16 Estimated GFR > 60 ml/min 12/21/18 05:16 15 % 12/21/18 05:16 Glucose 89 mg/dL (65-100) 12/21/18 05:16 Calcium 8.8 mg/dL (8.4-10.2) 12/21/18 05:16 0.60 mg/dL (0.1-1.2) 12/14/18 03:57 AST 15 units/L (5-40) 12/14/18 03:57 ALT 23 units/L (7-56) 12/14/18 03:57 104 units/L (35-129) 12/14/18 03:57 7.4 g/dL (6.3-8.2) 12/14/18 03:57 3.7 g/dL (3.9-5) L 12/14/18 03:57 1.0 % 12/14/18 03:57 Active Medications - Current Medications Current Medications: Generic Name Dose Route Start Last Admin Trade Name Freq PRN Reason Stop Dose Admin Acetaminophen 500 mg 12/13/18 18:32 12/14/18 06:26 Tylenol PO 500 mg Q6H PRN Administration Pain, Mild (1-3) Albuterol 2.5 mg 12/13/18 18:27 Proventil IH Q4HRT PRN Shortness Of Breath Amlodipine Besylate 10 mg 12/14/18 08:00 12/23/18 09:19 Norvasc PO 10 mg QDAY LINUS Administration Aspirin 325 mg 12/14/18 08:00 12/23/18 09:18 Ecotrin PO 325 mg QDAY LINUS Administration Atorvastatin Calcium 40 mg 12/13/18 22:00 12/22/18 21:13 Lipitor PO 40 mg QHS LINUS Administration Bisacodyl 10 mg 12/13/18 18:20 Dulcolax [place] QDAY PRN Constipation Enoxaparin Sodium 40 mg 12/14/18 08:00 12/23/18 09:20 Lovenox SUB-Q 40 mg QDAY LINUS Administration Escitalopram Oxalate 10 mg 12/14/18 12:00 12/23/18 09:18 Lexapro PO 10 mg QDAY LINUS Administration Ibuprofen 600 mg 12/14/18 11:00 12/23/18 09:41 Motrin PO 600 mg BID PRN Administration Pain, Mild (1-3) Lisinopril 10 mg 12/19/18 15:00 12/23/18 09:19 Zestril PO 10 mg QDAY LINUS Administration Nicotine 21 mg 12/14/18 08:00 12/23/18 09:23 Habitrol TD Not Given QDAY LINUS Nystatin 1 applic 12/21/18 14:00 12/23/18 09:22 Mycostatin TP 12/28/18 13:59 1 applic TID LINUS Administration Pantoprazole Sodium 20 mg 12/18/18 10:00 12/23/18 09:19 Protonix PO 20 mg QDAY LINUS Administration Nutrition/Malnutrition Assess - Dietary Evaluation Nutrition/Malnutrition Findings: Nutrition Notes Start: 12/20/18 16:08 Freq: Status: Active Protocol: Document 12/20/18 16:08 RM (Rec: 12/20/18 16:09 [email or web address]) Nutrition Notes Need for Assessment generated from: LOS Initial or Follow up Brief Note Height 5 ft 4 in Weight 140.9 kg [place] Body Weight (kg) 54.54 BMI 53.3 Subjective/Other Information Screened for LOS. PO intake 95% X 2 days. Nutrition Intervention Revisit per MD consult or patient Sign Off request:
[2018-12-24] MEDS: MYCOSTATIN TP SCH ×3 (08:18→21:19)
[2018-12-24] MEDS: PROTONIX PO SCH (08:19)
[2018-12-24] MEDS: ZESTRIL PO SCH (08:19)
[2018-12-24] MEDS: LOVENOX SUB-Q SCH (08:19)
[2018-12-24] MEDS: NORVASC PO SCH (08:19)
[2018-12-24] MEDS: LEXAPRO PO SCH (08:19)
[2018-12-24] MEDS: ECOTRIN PO SCH (08:19)
[2018-12-24] MEDS: HABITROL TD SCH (08:25)
[2018-12-24] MEDS: IBUPROFEN PO PRN (21:16)
[2018-12-25] MEDS: LEXAPRO PO SCH (08:21)
[2018-12-25] MEDS: ZESTRIL PO SCH (08:22)
[2018-12-25] MEDS: NORVASC PO SCH (08:22)
[2018-12-25] MEDS: ECOTRIN PO SCH (08:22)
[2018-12-25] MEDS: PROTONIX PO SCH (08:22)
[2018-12-25] MEDS: MYCOSTATIN TP SCH ×3 (08:22→21:23)
[2018-12-25] MEDS: LOVENOX SUB-Q SCH (08:22)
[2018-12-25] MEDS: IBUPROFEN PO PRN (08:34)
[2018-12-25] MEDS: HABITROL TD SCH (08:37)
--- NOTE | 2018-12-26 08:14 | Progress Note ---
Subjective Date of service: 12/26/18 Principal diagnosis: CVA Interval history: 38-year-old predominantly right-handed (ambidextrous) female with acute onset of slurred speech and facial droop and left-sided weakness presented to the ER and was worked up and found to have right sided CVA. She was given TPA with improvement in symptoms and transferred to the ICU. After she was stabilized she was transferred to the floor. Pulmonology was consulted for obesity hypoventilation syndrome and recommended an outpatient sleep study. Patient had vaccinations while inpatient and developed low-grade fevers which resolved. States that she recently started back smoking and has been started on nicotine patch. Smoking cessation was discussed with the patient and has also been ordered. Discussed at length with patient stroke prognosis and secondary stroke prevention. Patient also states that she's had increased anxiety since being in the hospital along with bouts of tearfulness and is agreeable to starting medication. Also states she's been constipated. Patient states that her mother has come in town and will be available to stay with her until she is able to return to her former function. She lives in a two-story house with her children. 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 After the patient was medically stabilized they were transferred for further rehabilitation. All alan ilable medical records have been reviewed. Plan of care was discussed with patient. Patient is participating in therapy and making reasonable progress. Taking rest breaks as needed. +BM. Strength in arm is improving but not equal yet. Blood pressure improved. Hospitalist have signed off. Has cough at night occasionally, reminded to use nebulizer. We'll continue to monitor for any further issues. Right antecubital area improved, states she has more itching more widespread now. Tolerating stairs with some weakness. Denies pain, palpitations, dyspnea, N/V, or joint pain. All records, vitals, labs and medications were reviewed. No other issues per patient, nursing or therapy. Objective - Exam Narrative Exam: MUSCULOSKELETAL SPECIALTY EXAM CONSTITUTIONAL: Well developed, well nourished, appropriately groomed, obese female. RIGHT hand dominant. RESPIRATORY: Clear to auscultation bilaterally, no increased work of breathing CARDIOVASCULAR: Regular Rate/ Rhythm, no swelling, edema or tenderness in BUE or BLE. All extremities warm. GI: + bowel sounds, soft, NTTP, nondistended, protuberant. INTEGUMENTARY: Normal, no lesion, masses or bruising noted in extremities. Rash in right antecubital, appears fungal in nature. MUSCULOSKELETAL: BUE and BLE normal without defect, crepitus, subluxation, effusion, arthritic changes (patient states history of RA but no definitive signs seen at this point) or TTP. SA EF WE EE FF FA HF KE ADF EHL APF R 5/5 5/5 5/5 5/5 5/5 5/5 5/5 5/5 5/5 5/5 5/5 L 4-/5 4-/5 4-/5 4-/5 4-/5 4-/5 4-/5 4-/5 4-/5 4-/5 4-/5 ROM full on the right, decreased on the left Tone normal NEURO: Facial sensation intact but altered on the left, otherwise cranial nerves II through XII grossly intact Sensation intact in all extremities without extinction but it is altered on the left compared to right. No tremor noted in 4 extremities. Naming and repetition intact. Follows 2 step commands. Aphasia not appreciated. Dysarthria not appreciated Dysphagia not present Neglect not appreciated POSTURE and GAIT: Sitting posture good. Balance appears reasonable. Gait deferred until seen with therapy. PSYCH: Alert, orientated x3, affect appears euthymic. Insight appears intact. - Constitutional Vitals: Vital Signs - 12hr 12/26/18 00:02 Temperature 36.6 C Pulse Rate 65 Respiratory 18 Rate Blood Pressure 116/49 O2 Sat by Pulse 93 Oximetry - Allied health notes Allied health notes reviewed: nursing, PT, OT FIMS assessment as documented by PT/OT/ST: Grooming Patient cleans teeth/dentures: Yes Patient montemayor/brushes hair: Yes Patient washes, rinses and Yes dries face: Patient washes, rinses and Yes dries hands: Patient shaves: No Patient applies make-up: No Patient performs (no make-up/ / (100%) shaving): Patient performs (w/ make-up/ /5 (100%) shaving): Grooming FIM Score 6. Modified Barron (Needs equipment/device . Extra time.) Toileting Toileting Device Bedside Commode,Grab Bar Patient able to: Adjust clothes before,Clean self,Adjust clothes after Patient able to perform: 3/3 (100%) Toileting FIM Score 5. Supv./Set-Up (Needs stand-by, set-up, applying prosth/orth.) Social interaction/Memory/Problem solving Social Interaction FIM Score 6. Mod. Barron (Mostly appropriate. May need meds. No supv.) Memory FIM Score 6. Modified Barron(Mild difficulty remembering people/routines.) Problem Solving FIM Score 5. Supervision (Needs cueing <10% to solve routine problems.) Transfers Mode of Locomotion: Wheelchair Bed/Chair/Wheelchair Transfers 5. Supervision (Needs supv. or set-up for FIM Score sliding board, foot rests.) Toilet Transfers FIM Score 6. Modified Barron (Uses device, special seat or more time.) Patient transferred to: Shower Shower Transfers FIM Score 5. Supervision (Needs supv. or set-up with device.) Locomotion- Stairs Device used on Stairs Handrail/s Number of Stairs Ascended/ 12 Descended Patient used handrail/support: Yes Stairs FIM Score 6. Modified Barron (12-14 stairs using handrail/support.) Locomotion- walk/wheelchair Most Frequent Mode of Wheelchair Locomotion: Ambulation Distance 118 Walking FIM Score 5. Supervision (Minimum 150 ft. supv./cues or 5 0 ft. independently.) Wheelchair Propulsion Distance 300 Wheelchair FIM Score 6. Modified Barron (Wheels a minimum of 150 ft.) Eating Eating FIM Score 7. Complete Barron (Cuts meat, opens containers, regular diet.) Dressing-Upper body Patient retrieves clothing Yes items: Patient applies/removes UE n/a prosthesis or orthosis: Upper Body Dressing FIM Score 6. Modified Barron (Needs equipment, velcro or pros./orth.) Dressing-lower body Patient retrieves clothing Yes items: Patient applies/removes LE Yes prosthesis or orthosis: Lower Body Dressing FIM Score 5. Supv./Set-Up ([place] sets out clothes or applies pros./orth.) - Labs CBC & Chem 7: 12/21/18 05:16 12/21/18 05:16 Assessment and Plan I69.354 CVA with hemiparesis affecting left nondominant side: TPA given. Continue secondary stroke prevention. Monitor for worsening post stroke depression. Monitor for worsening neurologic decline. Continue therapy as below. 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 We will need return of cognitive function prior to returning to her previous line of work. She is doing well from a cognitive standpoint as far as the tasks that we can provide her. She still feels like she is reading at a much slower pace than previous and this will be a factor with her line of work and volume of work. Speech is working to try and improve this and see if they can find any areas of deficits. M06.9 RA unspecified: Patient states she was diagnosed with rheumatoid arthritis years ago, only takes ibuprofen for relief. K59.00 Constipation: Continue medications, adjust as needed. Monitor J45 Asthma: Continue nebulizers and inhalers as needed. O2 when necessary with monitoring by respiratory therapy. Cough at night, reminded to use inhaler I10 hypertension: Continue medications, monitor blood pressure and adjust medications as needed for normotension. Z73.6 ADL dysfunction: OT will work on improving ability to perform ADLs (including assistive devices) to increase independence and decrease caregiver burden and improve functional transfers and mobility training. R26.2 Difficulty walking: PT will work on gait training and proper use of assistive devices and advance as appropriate to use of stairs and outside ambulation on uneven surfaces. R26.81 Unsteadiness on feet: PT will work on improving static and dynamic sitting and standing balance as well as proper use of assistive devices to decrease risk of falls. R26.89 Abnormality of gait: PT will work to improve safety and efficiency of gait through neuromotor training and gait training along with instruction on proper use of assistive devices. M62.81 Muscle weakness: PT & OT will work on strengthening exercises to improve functional strength including mixture of closed and open kinetic chain exercises. R53.81 Debility: PT & OT will work on improving overall functional status to improve participation with ADLs, mobility and social involvement. R53.83 Fatigue: PT & OT will work on improving endurance through aerobic exercises and therapeutic activity while monitoring patients tolerance for activity and vital signs as needed. Fungal rash right antecubital area: Nystatin cream, monitor Dyspepsia: PPI, monitor Internal medicine consult for hypertension management DVT ppx: Lovenox Pain: Continue physical modalities in therapy and pain medications as needed to achieve functional pain control. Sleep: Monitor and address as needed. Bowel: Monitor and address as needed. Appetite: Monitor and address as needed. Discharge planning: Pending therapy progress and care plan meeting. Will continue discussion with therapy team, SW, patient and family. Restrictions/ Precautions: Falls WB status: FWB Functional Hx: ADLs: Independent Cognition: Independent Mobility: No AD Barriers to Discharge: Decreased mobility and ability to perform self care, balance deficits, weakness, discrete cognitive dysfunction Estimated Length of Stay: 14-21 days Discharge Destination: Home with family
[2018-12-26] MEDS: HABITROL TD SCH (08:33)
[2018-12-26] MEDS: NORVASC PO SCH (08:47)
[2018-12-26] MEDS: PROTONIX PO SCH (08:47)
[2018-12-26] MEDS: LEXAPRO PO SCH (08:47)
[2018-12-26] MEDS: LOVENOX SUB-Q SCH (08:47)
[2018-12-26] MEDS: ECOTRIN PO SCH (08:47)
[2018-12-26] MEDS: ZESTRIL PO SCH ×3 (08:47→21:54)
[2018-12-26] MEDS: MYCOSTATIN TP SCH ×3 (08:48→21:56)
[2018-12-27] MEDS: IBUPROFEN PO PRN ×2 (06:33→22:08)
[2018-12-27] MEDS: NORVASC PO SCH (08:14)
[2018-12-27] MEDS: LEXAPRO PO SCH (08:16)
[2018-12-27] MEDS: ECOTRIN PO SCH (08:16)
[2018-12-27] MEDS: MYCOSTATIN TP SCH ×3 (08:16→22:10)
[2018-12-27] MEDS: LOVENOX SUB-Q SCH (08:16)
[2018-12-27] MEDS: PROTONIX PO SCH (08:17)
[2018-12-27] MEDS: HABITROL TD SCH (08:24)
[2018-12-27] MEDS: ZESTRIL PO SCH (22:14)
[2018-12-28] MEDS: LEXAPRO PO SCH (10:28)
[2018-12-28] MEDS: PROTONIX PO SCH (10:28)
[2018-12-28] MEDS: ECOTRIN PO SCH (10:28)
[2018-12-28] MEDS: NORVASC PO SCH (10:28)
[2018-12-28] MEDS: LOVENOX SUB-Q SCH (10:29)
[2018-12-28] MEDS: MYCOSTATIN TP SCH (10:30)
[2018-12-28] MEDS: HABITROL TD SCH (10:32)
--- NOTE | 2018-12-28 12:09 | Progress Note ---
Subjective Date of service: 12/28/18 Principal diagnosis: CVA Interval history: 38-year-old predominantly right-handed (ambidextrous) female with acute onset of slurred speech and facial droop and left-sided weakness presented to the ER and was worked up and found to have right sided CVA. She was given TPA with improvement in symptoms and transferred to the ICU. After she was stabilized she was transferred to the floor. Pulmonology was consulted for obesity hypoventilation syndrome and recommended an outpatient sleep study. Patient had vaccinations while inpatient and developed low-grade fevers which resolved. States that she recently started back smoking and has been started on nicotine patch. Smoking cessation was discussed with the patient and has also been ordered. Discussed at length with patient stroke prognosis and secondary stroke prevention. Patient also states that she's had increased anxiety since being in the hospital along with bouts of tearfulness and is agreeable to starting medication. Also states she's been constipated. Patient states that her mother has come in town and will be available to stay with her until she is able to return to her former function. She lives in a two-story house with her children. 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 After the patient was medically stabilized they were transferred for further rehabilitation. All alan ilable medical records have been reviewed. Plan of care was discussed with patient. Patient is participating in therapy and making reasonable progress. Taking rest breaks as needed. +BM. Strength in arm is improving but not equal yet. Blood pressure improved, better controlled with staggered timing of amlodipine and lisinopril. Has cough at night occasionally, reminded to use nebulizer. We'll continue to monitor for any further issues. Right antecubital area improved. Tolerating stairs with some weakness. AFO improved her gait and stability. Discussed pending discharge for . She feels confident and understands secondary stroke prevention. No driving until cleared by PCP or neurologist. Denies pain, palpitations, dyspnea, N/V, or joint pain. All records, vitals, labs and medications were reviewed. No other issues per patient, nursing or therapy. Objective - Exam Narrative Exam: MUSCULOSKELETAL SPECIALTY EXAM CONSTITUTIONAL: Well developed, well nourished, appropriately groomed, obese female. RIGHT hand dominant. RESPIRATORY: Clear to auscultation bilaterally, no increased work of breathing CARDIOVASCULAR: Regular Rate/ Rhythm, no swelling, edema or tenderness in BUE or BLE. All extre mities warm. GI: + bowel sounds, soft, NTTP, nondistended, protuberant. INTEGUMENTARY: Normal, no lesion, masses or bruising noted in extremities. Rash in right antecubital, appears fungal in nature, almost cleared. MUSCULOSKELETAL: BUE and BLE normal without defect, crepitus, subluxation, effusion, arthritic changes (patient states history of RA but no definitive signs seen at this point) or TTP. SA EF WE EE FF FA HF KE ADF EHL APF R 5/5 5/5 5/5 5/5 5/5 5/5 5/5 5/5 5/5 5/5 5/5 L 4-/5 4-/5 4-/5 4-/5 4-/5 4-/5 4-/5 4-/5 4-/5 4-/5 4-/5 ROM full on the right, decreased on the left Tone normal NEURO: Facial sensation intact but altered on the left, otherwise cranial nerves II through XII grossly intact Sensation intact in all extremities without extinction but it is altered on the left compared to right. No tremor noted in 4 extremities. Naming and repetition intact. Follows 2 step commands. Aphasia not appreciated. Dysarthria not appreciated Dysphagia not present Neglect not appreciated POSTURE and GAIT: Sitting posture good. Balance appears reasonable. Gait fairly steady with AFO/RW. PSYCH: Alert, orientated x3, affect appears euthymic. Insight appears intact. - Constitutional Vitals: Vital Signs - 12hr 12/28/18 12/28/18 06:04 10:28 Temperature 36.6 C Pulse Rate 71 71 Respiratory 18 Rate Blood Pressure 133/75 129/81 O2 Sat by Pulse 97 Oximetry - Allied health notes Allied health notes reviewed: nursing, PT, OT FIMS assessment as documented by PT/OT/ST: Grooming Patient cleans teeth/dentures: Yes Patient montemayor/brushes hair: Yes Patient washes, rinses and Yes dries face: Patient washes, rinses and Yes dries hands: Patient shaves: No Patient applies make-up: No Patient performs (no make-up/ 11/04 (100%) shaving): Patient performs (w/ make-up/ 12/05 (100%) shaving): Grooming FIM Score 7. Complete [place] (Timely, Safely) Toileting Toileting Device Commode over Toilet Patient able to: Adjust clothes before,Clean self,Adjust clothes after Patient able to perform: 3/3 (100%) Toileting FIM Score 6. Modified [place] (Needs equip. or prosth ./orth.) Social interaction/Memory/Problem solving Social Interaction FIM Score 7. Complete [place] (Interacts appropriately. Controls temper.) Memory FIM Score 7. Complete [place] (Remembers people and routines.) Problem Solving FIM Score 7. Complete [place] (Solves complex problems. Self corrects.) Transfers Mode of Locomotion: Wheelchair Bed/Chair/Wheelchair Transfers 6. Modified [place] (Uses device, sliding FIM Score board, prosth./orth.) Toilet Transfers FIM Score 6. Modified [place] (Uses device, special seat or more time.) Patient transferred to: Shower Shower Transfers FIM Score 5. Supervision (Needs supv. or set-up with device.) Locomotion- Stairs Device used on Stairs Handrail/s Number of Stairs Ascended/ 12 Descended Patient used handrail/support: Yes Stairs FIM Score 6. Modified [place] (12-14 stairs using handrail/support.) Locomotion- walk/wheelchair Most Frequent Mode of Wheelchair Locomotion: Ambulation Distance 170 Walking FIM Score 7. Complete [place]key (150 ft. or more, safely with no device.) Wheelchair Propulsion Distance 150 Wheelchair FIM Score 6. Modified [place] (Wheels a minimum of 150 ft.) Eating Eating FIM Score 7. Complete [place] (Cuts meat, opens containers, regular diet.) Dressing-Upper body Patient retrieves clothing Yes items: Patient applies/removes UE n/a prosthesis or orthosis: Upper Body Dressing FIM Score 6. Modified [place] (Needs equipment, velcro or pros./orth.) Dressing-lower body Patient retrieves clothing Yes items: Patient applies/removes LE Yes prosthesis or orthosis: Lower Body Dressing FIM Score 6. Modified [place]key (Needs equipment, velcro or pros./orth.) - Labs CBC & Chem 7: 12/21/18 05:16 12/21/18 05:16 Assessment and Plan I69.354 CVA with hemiparesis affecting left nondominant side: TPA given. Continue secondary stroke prevention. Monitor for worsening post stroke depression. Monitor for worsening neurologic decline. Continue therapy as below. 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 We will need return of cognitive function prior to returning to her previous line of work. She is doing well from a cognitive standpoint as far as the tasks that we can provide her. She still feels like she is reading at a much slower pace than previous and this will be a factor with her line of work and volume of work. seems improved M21.372 Left foot drop: able to dorsiflex foot in seated position but has increased difficulty when ambulating. Trialed several strategies to improve and saw that an AFO provided stability and proper mechanics for a safe gait. M06.9 RA unspecified: Patient states she was diagnosed with rheumatoid arthritis years ago, only takes ibuprofen for relief. K59.00 Constipation: Continue medications, adjust as needed. Monitor J45 Asthma: Continue nebulizers and inhalers as needed. O2 when necessary with monitoring by respiratory therapy. Cough at night, reminded to use nebulizer I10 hypertension: Continue medications, monitor blood pressure and adjust medications as needed for normotension. Z73.6 ADL dysfunction: OT will work on improving ability to perform ADLs (inclu ding assistive devices) to increase independence and decrease caregiver burden and improve functional transfers and mobility training. R26.2 Difficulty walking: PT will work on gait training and proper use of assistive devices and advance as appropriate to use of stairs and outside ambulation on uneven surfaces. R26.81 Unsteadiness on feet: PT will work on improving static and dynamic sitting and standing balance as well as proper use of assistive devices to decrease risk of falls. R26.89 Abnormality of gait: PT will work to improve safety and efficiency of gait through neuromotor training and gait training along with instruction on proper use of assistive devices. M62.81 Muscle weakness: PT & OT will work on strengthening exercises to improve functional strength including mixture of closed and open kinetic chain exercises. R53.81 Debility: PT & OT will work on improving overall functional status to improve participation with ADLs, mobility and social involvement. R53.83 Fatigue: PT & OT will work on improving endurance through aerobic exercises and therapeutic activity while monitoring patients tolerance for activity and vital signs as needed. Fungal rash right antecubital area: Nystatin cream, almost cleared, monitor Dyspepsia: PPI, monitor DVT ppx: Lovenox Pain: Continue physical modalities in therapy and pain medications as needed to achieve functional pain control. Sleep: Monitor and address as needed. Bowel: Monitor and address as needed. Appetite: Monitor and address as needed. Discharge planning: Pending therapy progress and care plan meeting. Will continu e discussion with therapy team, SW, patient and family. Restrictions/ Precautions: Falls WB status: FWB Functional Hx: ADLs: Independent Cognition: Independent Mobility: No AD Barriers to Discharge: Decreased mobility and ability to perform self care, balance deficits, weakness, discrete cognitive dysfunction Estimated Length of Stay: 14-21 days Discharge Destination: Home with family on
[2018-12-28] MEDS: IBUPROFEN PO PRN (21:56)
[2018-12-28] MEDS: ZESTRIL PO SCH (21:56)
[2018-12-29] MEDS: NORVASC PO SCH (08:20)
[2018-12-29] MEDS: LOVENOX SUB-Q SCH (08:20)
[2018-12-29] MEDS: PROTONIX PO SCH (08:20)
[2018-12-29] MEDS: LEXAPRO PO SCH (08:20)
[2018-12-29] MEDS: ECOTRIN PO SCH (08:21)
[2018-12-29] MEDS: HABITROL TD SCH (08:21)
[2018-12-29] MEDS: IBUPROFEN PO PRN (11:40)
[2018-12-29] MEDS: ZESTRIL PO SCH (21:32)
[2018-12-30] MEDS: PROTONIX PO SCH (09:57)
[2018-12-30] MEDS: NORVASC PO SCH (09:57)
[2018-12-30] MEDS: LOVENOX SUB-Q SCH (09:57)
[2018-12-30] MEDS: ECOTRIN PO SCH (09:57)
--- NOTE | 2018-12-30 11:35 | Discharge Summary ---
Providers - Providers Date of Admission: 12/13/18 16:27 Date of discharge: 12/30/18 Attending physician: ALEXANDRIA WIGGINS III, MD 12/13/18 16:28 Occupational Therapy Evaluate and Treat [CONS] Routine Comment: Reason For Exam: ADL dysfunction Physical Therapy Evaluation and Treat [CONS] Routine Comment: Reason For Exam: Mobility Dysfunction 12/13/18 16:31 Consult to Case Management [CONS] Routine Services Needed at Discharge: Home Health Services Notified:: cm notified 12/14/18 11:27 Speech Therapy Evaluation and Treat [CONS] Routine Reason For Exam: Cognitive s/p CVA, pt is noticing deficits 12/16/18 12:39 Consult to Physician [CONS] Routine Comment: Consulting Provider: MELVI BERUMEN Physician Instructions: Reason For Exam: Medical Management - HTN Primary care physician: [employer]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 She was given TPA with improvement in symptoms and transferred to the ICU. After she was stabilized she was transferred to the floor. Pulmonology was consulted for obesity hypoventilation syndrome and recommended an outpatient sleep study. Patient had vaccinations while inpatient and developed low-grade fevers which resolved. States that she recently started back smoking and has been started on nicotine patch. Smoking cessation was discussed with the patient and has also been ordered. Discussed at length with patient stroke prognosis and secondary stroke prevention. Patient also states that she's had increased anxiety since being in the hospital along with bouts of tearfulness and is agreeable to starting medication. Also states she's been constipated. Patient states that her mother has come in town and will be available to stay with her until she is able to return to her former function. She lives in a two-story house with her children. 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 After the patient was medically stabilized they were transferred for further rehabilitation. Patient progressed fairly well with therapy. Speech therapy signed off and appears her cognition is pretty much at baseline at this point. She still has issues with ambulation and less issue with ADLs. She does have ankle dorsiflexion on the left however during ambulation she tends to drag the foot and this is been improved with use of an AFO which has been ordered and provided for her. We are working on DME equipment and having issues with procurement at this time but she is okay with going home with a prescription if we cannot find a satisfactory company. She notes that her mother has a walker she can borrow for the time being until she can fill the prescription. Patient was noted to be somewhat depressed during her stay and was started on Lexapro. Blood pressure initially was fairly well controlled on amlodipine however it started creeping upwards and we started low-dose lisinopril which seemed to manage it fairly well in conjunction with the amlodipine. Approximately a week after starting lisinopril we noticed that she started having hypotension, at that point we opted to separate the dosing times of the amlodipine and lisinopril. She responded for a well to this and we have not seen the periodic episodes of hypotension anymore. She developed a mild fungal rash on the antecubital space of the right upper extremity which was treated with cream and improved over several days. Almost completely gone now. At several points during the stay including the day of discharge we discussed secondary stroke prevention and she is able to tell me that she needs to monitor her blood pressure, watch her dietary intake especially with regards to sugar, continue take an aspirin, continue statin, and importantly stop smoking. Nicotine patch was offered and ordered initially however she refused it and feels that she will not have any problems with smoking cessation at home. She developed some mild GERD symptoms which were treated with pantoprazole and will continue this as she goes home. She was noted in have a recommendation from pulmonology for an outpatient sleep study and I reminded her of that as well. We also discussed driving she will need to be released by either PCP or neurology before she restarts driving. At this point from what I see a don't think she will have much of an issue with that however due to response time and any mild peripheral vision deficits she needs to have clearance and possibly undergo testing before driving. Disposition: DC/TX- HOME UNDER HOME [facility] Time spent for discharge: >30mins Core Measure Documentation - Palliative Care Palliative Care/ Comfort Measures: Not Applicable - Core Measures Any of the following diagnoses?: stroke - Stroke Discharge Requirements Statin for LDL = or >70 mg/dl on DC: Yes Anticoag for atrial fib/atrial flutter: Not Applicable Antithrombotic for ischemic stroke: Yes Exam - Physical Exam Narrative exam: MUSCULOSKELETAL SPECIALTY EXAM CONSTITUTIONAL: Well developed, well nourished, appropriately groomed, obese female. RIGHT hand dominant. RESPIRATORY: Clear to auscultation bilaterally, no increased work of breathing CARDIOVASCULAR: Regular Rate/ Rhythm, no swelling, edema or tenderness in BUE or BLE. All extremities warm. INTEGUMENTARY: Normal, no lesion, masses or bruising noted in extremities. Rash in right antecubital, appears fungal in nature, almost cleared. MUSCULOSKELETAL: BUE and BLE normal without defect, crepitus, subluxation, effusion, arthritic changes (patient states history of RA but no definitive signs seen at this point) or TTP. SA EF WE EE FF FA HF KE ADF EHL APF R 5/5 5/5 5/5 5/5 5/5 5/5 5/5 5/5 5/5 5/5 5/5 L 4-/5 4-/5 4-/5 4-/5 4-/5 4-/5 4-/5 4-/5 4-/5 4-/5 4-/5 ROM full on the right, decreased on the left Tone normal NEURO: Facial sensation intact but altered on the left, otherwise cranial nerves II through XII grossly intact Sensation intact in all extremities without extinction but it is altered on the left compared to right. No tremor noted in 4 extremities. Naming and repetition intact. Follows 2 step commands. Aphasia not appreciated. Dysarthria not appreciated Dysphagia not present Neglect not appreciated POSTURE and GAIT: Sitting posture good. Balance appears reasonable. Gait fairly steady with AFO/RW. PSYCH: Alert, orientated x3, affect appears euthymic. Insight appears intact. - Constitutional Vitals: Temp Pulse Resp BP Pulse Ox 36.6 C 74 18 159/79 98 12/30/18 08:44 12/30/18 09:57 12/30/18 08:44 12/30/18 09:57 12/30/18 08:44 Plan Activity: advance as tolerated, no driving until cleared by PCP, fall precautions Weight Bearing Status: Full Weight Bearing Diet: low salt Special Instructions: record daily BP diary, smoking cessation, physical therapy, occupational therapy, home health RN Durable Medical Equipment Needed Upon Discharge: Walker-Rolling, Bedside Commode, other (AFO) Follow up with: PRIMARY CARE, [Primary Care Provider] - 7 Days Prescriptions: AtorvaSTATin [Lipitor] 40 mg PO QHS #30 tablet Lisinopril [Zestril TAB] 10 mg PO QHS #30 tablet Aspirin EC 325 mg PO QDAY #30 tablet Escitalopram [Lexapro] 10 mg PO QDAY #30 tablet amLODIPine [Norvasc] 10 mg PO QDAY #30 tablet ALBUTEROL Inhaler (OR & NICU) [Proair] 2 puff IH QID PRN #1 inhalation PRN Reason: Shortness Of Breath Pantoprazole [Protonix TAB] 20 mg PO QDAY #30 tablet.
[2018-12-30 11:51] VITALS: BP 151/88
[2018-12-30] MEDS: HABITROL TD SCH (14:11)
[2018-12-30] MEDS: LEXAPRO PO SCH (14:14)
== END 2018-12-30 14:49 | disposition home health service (06) | DRG 56 ==
LOC: 3A 16:17 → UNDOADMIN 16:17 → 3B 16:27
PROVIDERS: ADMIT Physical Medicine & Rehabilitation; ATTEND Physical Medicine & Rehabilitation
DX: I69.354 Hemiplegia and hemiparesis following cerebral infarction affecting left non-dominant side (principal); I63.9 Cerebral infarction, unspecified; E66.2 Morbid (severe) obesity with alveolar hypoventilation; Z68.43 Body mass index [BMI] 50.0-59.9, adult; M06.9 Rheumatoid arthritis, unspecified; I10 Essential (primary) hypertension; R29.810 Facial weakness; J45.909 Unspecified asthma, uncomplicated; K59.00 Constipation, unspecified; R53.81 Other malaise; F17.200 Nicotine dependence, unspecified, uncomplicated; R47.81 Slurred speech; Z98.891 History of uterine scar from previous surgery; Z82.49 Family history of ischemic heart disease and other diseases of the circulatory system; Z88.1 Allergy status to other antibiotic agents
CPT/HCPCS: 36415; 80048; 80053; 85025; 99406; G0378; G0515; A9270-GY; J1650

== ENCOUNTER 2019-01-27 11:00 | Outpatient (CLI) | payer OTHER | END 2019-01-27 11:01 | disposition home or self-care (01) | LOC: SLR 11:00 | PROVIDERS: ATTEND Specialist | DX: G47.33 Obstructive sleep apnea (adult) (pediatric) (principal); I10 Essential (primary) hypertension; J45.909 Unspecified asthma, uncomplicated | CPT/HCPCS: 95810 ==